=== PATIENT | female | born 1990 | race Caucasian/White ===

== ENCOUNTER 2020-01-19 16:19 | Emergency (ER) | payer OTHER, SELFPAY ==
[2020-01-19 17:22] VITALS: BP 109/68; PULSE 88; RESP 22; TEMP 36.7; O2SAT 97; BMI 47.2
[2020-01-19 18:54] VITALS: BP 131/59; PULSE 77; RESP 22; TEMP 36.5; O2SAT 97
--- NOTE | 2020-01-19 19:33 | PC.NURSE ---
Pt placed on monitor, labs and Iv placed. Reported off to [facility].
[2020-01-19 19:55] VITALS: PULSE 72
[2020-01-19 20:00] VITALS: BP 117/70; PULSE 71; RESP 20; TEMP 37.2; O2SAT 100
--- NOTE | 2020-01-19 20:27 | XR_ITS ---
EXAMINATION: XR CHEST CLINICAL INFORMATION: 29-year-old female patient with shortness of breath. COMPARISON: Last chest x-ray performed 10/12/2019. (No acute). TECHNIQUE: AP portable erect view of the chest was obtained. The time of examination was 8:55 PM. FINDINGS: The heart remains normal in size. Pulmonary vascularity is normal. The lungs are symmetrically aerated and clear showing no evidence of consolidation or edema. Moderate thoracolumbar scoliosis is present. An eventration of the right hemidiaphragm is present as well. IMPRESSION: No acute cardiopulmonary disease.
--- NOTE | 2020-01-19 20:27 | ECG_ITS ---
Test Reason : DYSPNEA Blood Pressure : / mmHG Vent. Rate : 072 BPM Atrial Rate : 072 BPM P-R Int : 200 ms QRS Dur : 098 ms QT Int : 422 ms P-R-T Axes : -19 -03 -03 degrees QTc Int : 462 ms Normal sinus rhythm Nonspecific T wave abnormality Abnormal ECG When compared with ECG of 12-OCT-2019 06:28, Inverted T waves have replaced nonspecific T wave abnormality in Inferior leads Referred By: Rocio Humphrey Electronically Signed By:SHANTI FRYE MD
--- NOTE | 2020-01-19 20:30 | ED_ITS ---
HPI - SOB/Dyspnea General Chief Complaint: Dyspnea Stated Complaint: sob Time Seen by Provider: 01/19/20 20:26 Source: patient Mode of arrival: ambulatory Limitations: no limitations History of Present Illness HPI Narrative: this is a 29-year-old female otherwise healthy, presented with 2 days of shortness of breath feeling anxious and tingling of both arms and feet, patient describes that she feels popping sensation inside her chest when she takes a deep breath. Patient declined any substance abuse except smoking marijuana. patient declined any recent travel, no recent prolonged immobilization, no lower extremities swelling or tenderness, no history of PE/DVT. Related Data Home Medications Medication Instructions Recorded Confirmed No Known Home Meds 01/19/20 01/19/20 Allergies Allergy/AdvReac Type Severity Reaction Status Date / Time aspirin [ASPIRIN] Allergy Intermediate SWELLING Verified 01/19/20 17:28 Review of Systems Review of Systems: all other systems are reviewed and are negative Constitutional: Reports as per HPI and Reports no additional constitutional complaints Eyes: Reports as per HPI and Reports no additional eye complaints Reports system reviewed and no additional complaints, except as documented Cardiovascular: Reports as per HPI and Reports no additional cardiovascular complaints Respiratory: Reports as per HPI and Reports no additional respiratory complaints Gastrointestinal: Reports as per HPI and Reports no additional gastrointestinal complaints Genitourinary: Reports no additional female genitourinary complaints Musculoskeletal: Reports no additional musculoskeletal complaints Skin/Breast: Reports system reviewed and no additional complaints, except as docu Psychiatric: Reports no additional psychiatric complaints Endocrine: Reports no additional endocrine complaints Hematologic/Lymphatic: Reports no additional hematologic/lymphatic complaints Allergic/Immunologic: Reports no additional allergic/immunologic complaints Reports system reviewed and no additional complaints, except as documented and Reports Abnormal speech present [facility] Past Medical History Medical History Bipolar 1 disorder Carpal tunnel syndrome Depression Scoliosis Social History Social History Alcohol intake: never Smoking Status: Never smoker Smoked in Last 30 Days: No Use of substances other than those prescribed or required for medical reasons: No Advance Directives: No Advance Directives Information Provided: Yes Physical Exam 2 Vital Signs: Vital Signs: Vital Signs Temp Pulse Resp BP Pulse Ox 01/19/20 21:29 98.4 F 77 16 129/65 99 01/19/20 20:00 98.9 F 71 20 117/70 100 01/19/20 18:54 97.7 F 77 22 H 131/59 L 97 01/19/20 17:22 98.0 F 88 22 H 109/68 97 Body Mass Index 47.2 vital signs have been reviewed as normal and appeared to be correct. Blood pressure normal. Heart rate normal. Respiration rate normal. Temperature no rmal. Oxygen saturation normal. Appearance: Alert. Oriented X3. No acute distress. Head: Normal external exam. Normocephalic. Atraumatic. No Boland signs noted. No raccoon eyes noted Eyes: PERRLA. EOMI. Conjunctiva and sclera normal. Eyelids normal. ENT: EAC normal. TM's Normal. Pharynx normal. Uvula midline. Moist mucous membranes. No trismus noted. No drooling noted. No muffled voice noted. Neck: Normal inspection. Neck supple. FROM. No adenopathy. Thyroid Normal. No meningeal signs. No neck mass noted. CVS: Normal heart rate and rhythm. Heart sound normal. No murmurs noted. Pulses normal throughout. Respiratory: No respiratory distress. Painless inspiration. Breath sounds normal. No wheezes/rales/rhonchi noted. Chest nontender. No accessory muscle usage noted or decreased air movement noted. Abdomen: Soft and nontender. Bowel sounds normal in all 4 quadrants. No distention noted. No organomegaly noted. No visible injury noted. Back: No CVA tenderness. Full range of motion noted. Skin: Skin warm and dry. Normal skin color. Normal skin turgor. No rashes/lesions/lacerations noted. Extremities: No lower extremity edema. Extremities exhibit normal range of motion. Extremities nontender. Neuro: Oriented X 3. No motor deficit. No sensory deficit. Reflexes normal. Course Course Course Narrative: 29-year-old female otherwise with past medical history significant for bipolar disorder and a psych disorders, presented with 2 days of shortness of breath and overall feeling anxious. Will monitor the patient, hydrate, try Ativan for anxiolytics medication, check labs, EKG, chest x-ray, re-evaluate. MDM - SOB/Dyspnea MDM Narrative Medical decision making narrative: 29-year-old female otherwise healthy presented with 2 days of feeling anxious, upper and lower extremities numbness, feels popping sensation in the chest while she is breathing. Patient has unremarkable labs/ unremarkable EKG . patient was given Ativan in the emergency department help her symptoms. Will discharge the patient to follow-up with PCP. Lab Data Result diagrams: 01/19/20 20:48 Labs: Lab Results 01/19/20 01/19/20 01/19/20 Range/Units 20:48 20:48 20:48 WBC 8.4 (4.8-10.8) X10*3/uL RBC 4.21 (4.20-5.50) X10*6/uL Hgb 12.1 (12.0-16.0) g/dl Hct 36.5 L (37-47) % MCV 86.7 (80-98) fL MCH 28.7 (27.0-33.0) pg MCHC 33.2 (31.0-35.0) g/dl RDW 13.9 (11.0-16.0) % Plt Count 231 (160-400) X10*3/uL MPV 10.9 (9.4-12.3) fL Absolute Nucleated RBC 0.000 (0.0-0.012) X10*3/uL Nucleated RBC % (auto) 0.0 (0.0-0.2) /100WBC D-Dimer 241 NG/ML Total Bilirubin (0.0-1.0) mg/dL Direct Bilirubin (0.0-0.5) mg/dL AST (5-31) U/L ALT (0-31) U/L Alkaline Phosphatase (39-117) U/L Troponin I High Sens (<3.5-17.0) ng/L B-Natriuretic Peptide < 10 (<100) pg/mL Total Protein (6.5-8.0) g/dL Albumin (3.5-5.0) g/dL Lipase (8-78) U/L Urine Color Urine Appearance Urine pH (5.0-8.0) Ur Specific [place] (1.005-1.025) Urine Protein (NEG-TRACE) MG/DL Urine Glucose (UA) (NEG) MG/DL Urine Ketones (NEG) MG/DL Urine Blood (NEG) Urine Nitrite (NEG) Ur Leukocyte Esterase (NEG) Urine RBC (0) /HPF Urine WBC (0-4) /HPF Ur Squamous Epith Cells /LPF Urine Bacteria /LPF Urine Test (NEGATIVE) 10/01/19/20 01/19/20 Range/Units 20:48 20:48 21:28 WBC (4.8-10.8) X10*3/uL RBC (4.20-5.50) X10*6/uL Hgb (12.0-16.0) g/dl Hct (37-47) % MCV (80-98) fL MCH (27.0-33.0) pg MCHC (31.0-35.0) g/dl RDW (11.0-16.0) % Plt Count (160-400) X10*3/uL MPV (9.4-12.3) fL Absolute Nucleated RBC (0.0-0.012) X10*3/uL Nucleated RBC % (auto) (0.0-0.2) /100WBC D-Dimer NG/ML Total Bilirubin 0.2 (0.0-1.0) mg/dL Direct Bilirubin < 0.2 (0.0-0.5) mg/dL AST 19 (5-31) U/L ALT 18 (0-31) U/L Alkaline Phosphatase 96 (39-117) U/L Troponin I High Sens < 3.5 (<3.5-17.0) ng/L B-Natriuretic Peptide (<100) pg/mL Total Protein 6.5 (6.5-8.0) g/dL Albumin 3.5 (3.5-5.0) g/dL Lipase 19 (8-78) U/L Urine Color YELLOW Urine Appearance CLEAR Urine pH 5.5 (5.0-8.0) Ur Specific [place] >= 1.030 H (1.005-1.025) Urine Protein 2+ H (NEG-TRACE) MG/DL Urine Glucose (UA) NEG (NEG) MG/DL Urine Ketones NEG (NEG) MG/DL Urine Blood NEG (NEG) Urine Nitrite NEG (NEG) Ur Leukocyte Esterase NEG (NEG) Urine RBC 0-2 (0) /HPF Urine WBC 0 (0-4) /HPF Ur Squamous Epith Cells 1+ /LPF Urine Bacteria TRACE /LPF Urine Test NEGATIVE (NEGATIVE) ECG Data Interpretation: Normal sinus rhythm at 72 beats per minutes, normal intervals, no ST-T changes. Discharge Plan Discharge Clinical Impression: Anxiety Dyspnea Qualifiers: Dyspnea type: unspecified Qualified Code(s): R06.00 - Dyspnea, unspecified Patient Disposition: Home, Self-Care Instructions: Anxiety (ED) Prescriptions: No Action No Known Home Meds RF: 0 Referrals: Physician,Unknown [Primary Care Provider] - 2 days
[2020-01-19] MEDS: 0.9 % Sodium Chloride 1,000 ML 999 ML IVCONT (20:37)
[2020-01-19] MEDS: LORazepam 2 MG/ML VIAL 1 MG IVPUSH (20:37)
[2020-01-19 21:06] LABS: Hematocrit 36.5 % (37-47); Hemoglobin 12.1 g/dl (12.0-16.0); Mean Corpuscular HGB Conc 33.2 g/dl (31.0-35.0); Mean Corpuscular Hemoglobin 28.7 pg (27.0-33.0); Mean Corpuscular Volume 86.7 fL (80-98); Mean Platelet Volume 10.9 fL (9.4-12.3); Platelet Count 231 X10*3/uL (160-400); Red Blood Count 4.21 X10*6/uL (4.20-5.50); Red Cell Distribution Width 13.9 % (11.0-16.0); White Blood Count 8.4 X10*3/uL (4.8-10.8)
[2020-01-19 21:16] LABS: D Dimer 241 NG/ML
[2020-01-19 21:29] VITALS: BP 129/65; PULSE 77; RESP 16; TEMP 36.9; O2SAT 99
[2020-01-19 21:44] LABS: Appearance Urine CLEAR; Color Urine YELLOW; Glucose Urine UA NEG (NEG); Leukocyte Esterase Urine NEG (NEG); Nitrite Urine NEG (NEG); PH 5.5 (5.0-8.0); Specific Gravity - Urine >= 1.030 (1.005-1.025); Urine Blood NEG (NEG); Urine Ketones NEG (NEG); Urine Protein 2+ MG/DL (NEG-TRACE)
[2020-01-19 21:45] LABS: UPreg QC Valid YES
[2020-01-19 21:46] LABS: Urine Pregnancy NEGATIVE (NEGATIVE)
[2020-01-19 21:46] LABS: Alanine Aminotransferase 18 U/L (0-31); Albumin Level 3.5 g/dL (3.5-5.0); Alkaline Phosphatase 96 U/L (39-117); Aspartate Amino Transferase 19 U/L (5-31); Bilirubin Direct < 0.2 mg/dL (0.0-0.5); Bilirubin Total 0.2 mg/dL (0.0-1.0); Lipase 19 U/L (8-78); Total Protein 6.5 g/dL (6.5-8.0)
[2020-01-19 21:50] LABS: B Type Natriuretic Peptide < 10 pg/mL (<100); Troponin-I High Sensitivity < 3.5 ng/L (<3.5-17.0)
[2020-01-19 21:51] LABS: Bacteria Urine TRACE /LPF; RBC Urine 0-2 /HPF (0); Squamous Epithelial Cell Urine 1+ /LPF; WBC Urine 0 /HPF (0-4)
== END 2020-01-19 22:37 | disposition home or self-care (01) ==
PROVIDERS: Emergency Provider Emergency Medicine
DX: R06.00 Dyspnea, unspecified (principal); F41.9 Anxiety disorder, unspecified
CPT/HCPCS: 36415; 71045; 80076; 81001; 81025; 83690; 83880; 84484; 85027; 85379; 93005; 96361; 96374; 99284; 99285; J2060

== ENCOUNTER 2020-04-14 07:13 | Emergency (ER) | payer OTHER, SELFPAY ==
[2020-04-14 08:08] VITALS: BP 127/73; PULSE 79; RESP 16; TEMP 36.9; O2SAT 97; BMI 45.3
--- NOTE | 2020-04-14 08:22 | ED.BACK ---
HPI - Back Pain/Injury General Chief Complaint: Back Pain/Injury Stated Complaint: flank pain Time Seen by Provider: 04/14/20 08:17 Source: patient Mode of arrival: ambulatory Limitations: no limitations History of Present Illness HPI Narrative: States right lower back pain ongoing for the past couple days unsure of injury but does do long shifts standing up for 8 hours a day and has had positional pain for the past 2 days. There is no associated GI symptoms. There is no associated nausea vomiting or diarrhea. There is no head or neck pain. No radiation of this pain. No lower extremity weakness or radiculopathy. Had similar episode 2 years ago. MD elicited complaint: back pain Pertinent past history: prior back pain Onset (ago): day(s) (2 days ) Timing: constant Severity: moderate Similar Symptoms Previously: Yes Quality: aching Location: left lower back Radiation: none Exacerbating factors: movement Relieving factors: immobilization Associated symptoms: denies other symptoms Work related injury: No Related Data Previous Rx's Medication Instructions Recorded cyclobenzaprine 5 mg PO TID PRN #14 tab 04/14/20 ibuprofen 800 mg PO Q8H PRN #30 tab 04/14/20 lidocaine 1 patch TOPICAL Q24H PRN 10 Days 04/14/20 #10 ea Allergies Allergy/AdvReac Type Severity Reaction Status Date / Time aspirin [ASPIRIN] Allergy Intermediate SWELLING Verified 01/19/20 17:28 Review of Systems Review of Systems: Constitutional: No Weight loss, No Fever, No Chills, No Night Sweats, No Fatigue, No Malaise ENT/Mouth: No Hearing loss, No Ear Pain, No Nasal Congestion, No Sinus Pain, No Hoarseness, No sore throat, No Rhinorrhea, No Swallowing Difficulty Eyes: No Eye Pain, No Swelling, No Redness, No Foreign Body, No Discharge, No Vision Changes Cardiovascular: No Chest Pain, No SOB, No Dyspnea on Exertion, No Orthopnea, No Edema, No Palpitations Respiratory: No Cough, No Sputum, No Wheezing, No Smoke Exposure, No Dyspnea Gastrointestinal: No Nausea, No Vomiting, No Diarrhea, No Constipation, No abdominal Pain, No Hematochezia, No Melena Genitourinary: no irregular bleeding, No Dysuria, No Urinary Frequency, No Hematuria, No Urinary Incontinence, No Urgency, No Flank Pain, No Urinary Flow Changes, No Hesitancy Musculoskeletal: No joint pain, No Myalgias, No Joint Swelling, as noted in HPI Skin: No Skin Lesions, No rash Neuro: No Weakness, No Numbness, No Paresthesias, No Loss of Consciousness, No Dizziness, No Headache Psych: No Social Issues Heme/Lymph: No Bruising, No Bleeding,No Lymphadenopathy Endocrine: No Polyuria, No Polydipsia, No Temperature Intolerance Yes all other systems are reviewed and are negative [facility] Past Medical History Medical History Bipolar 1 disorder Carpal tunnel syndrome Depression Scoliosis Social History Social History Alcohol intake: never Smoking Status: Never smoker Advance Directives: No Advance Directives Information Provided: Yes Physical Exam Vital Signs: Vital Signs: Last Vital Signs Temp 98.5 F 04/14/20 08:08 Pulse 79 04/14/20 08:08 Resp 16 04/14/20 08:08 BP 127/73 04/14/20 08:08 Pulse Ox 97 04/14/20 08:08 Body Mass Index 45.3 Reviewed Const: General: cooperative and healthy appearing; No acute distress or intoxicated appearing Nutritional Appearance: average body habitus Orientation/consciousness: patient oriented x3 HENMT: Head: Yes normal to inspection Ears: hearing grossly normal bilaterally Eyes: General: appearance normal, both eyes and all related structures Visual Alvarado: normal visual alvarado by confrontation Neck: Neck: Yes normal visual inspection, No positive Brudzinski's sign, No positive Kernig's sign and No tender Thyroid: Thyroid normal Chest: Chest palpation & inspection: normal inspection of the chest Resp: Effort & Inspection: normal respiratory effort Cardio: Jugular venous distension: no JVD Rhythm: regular rhythm Heart sounds: S1 normal heart sound present and S2 normal heart sound present GI: Inspection: Yes normal to inspection Percussion: Yes normal to percussion Auscultation: normal bowel sounds : General: Yes no CVA tenderness Back/Spine/Pelvis: Other: No pain while sitting up straight states pain with palpation to the paraspinal muscle bilaterally left greater than right. No midline to palpation. No step-off. Negative leg lift. No rash. Distally neurovascularly intact. Reflexes within normal limits. Back: no CVA tenderness Thoracic/Lumbar Spine: straight leg raise negative bilaterally and paraspinal muscle tenderness on the right Skin: General skin exam: no rashes or lesions noted Neuro: General: patient oriented x3 Extrem: General: Yes normal to inspection MDM - Back Pain/Injury MDM Narrative Medical decision making narrative: In view 30-year-old female presenting with findings consistent with lumbar paraspinal muscle strain with no real back pain red flags. No signs symptoms of saddle anesthesia. Did receive IM Toradol and lidocaine patch feels better. Ambulatory status with gait. Does work long hours and stand for 8 hours unsure if this is related to this she does wear poor footwear with no back support could be a contributing factor. Will educate improper footwear work note provided. Will follow up with primary care/employee Center as needed. Stable for discharge. Differential Diagnosis Differential diagnosis: Likely sciatica and strain of lumbar region; Unlikely lumbar radiculopathy, renal colic, pyelonephritis, thoracic back pain, AAA and discitis Medical Records Attestation: I reviewed the patient's medical records. Lab Data Attestation: I reviewed the patient's lab results. Discharge Plan Discharge Clinical Impression: Strain of lumbar region Qualifiers: Encounter type: initial encounter Qualified Code(s): S39.012A - Strain of muscle, fascia and tendon of lower back, initial encounter Patient Disposition: Home, Self-Care Instructions: Low Back Strain (ED), Lower Back Exercises (ED) Additional Instructions: Warm compresses Gentle stretching Take medication prescribed No drinking alcohol or driving or operating heavy machinery while taking the muscle relaxants Low back exercises reviewed No lifting or bending or stooping for the next couple of days Return if any concerns or worsening symptoms Otherwise schedule follow-up with her primary care doctor 1-2 weeks for follow-up Thank you Prescriptions: New lidocaine 4 % adhesive patch,medicated 1 patch topical Q24H PRN (Reason: pain) 10 Days Qty: 10 RF: 0 ibuprofen 800 mg tablet 800 mg PO Q8H PRN (Reason: pain) Qty: 30 RF: 0 cyclobenzaprine 5 mg tablet 5 mg PO TID PRN (Reason: muscle spasm) Qty: 14 RF: 0 Referrals: ED Physician,Generic [Emergency Provider] - 1 week Stand Alone Forms: Work/School Release
[2020-04-14] MEDS: Ketorolac Tromethamine 60 MG/2 ML VIAL IM (08:45)
[2020-04-14] MEDS: Lidocaine 4 % Patch ADH..PATCH 1 PATCH TRANSDERMA (08:45)
== END 2020-04-14 10:35 | disposition home or self-care (01) ==
PROVIDERS: Emergency Provider Emergency Medicine
DX: S39.012A Strain of muscle, fascia and tendon of lower back, initial encounter (principal); X50.1XXA Overexertion from prolonged static or awkward postures, initial encounter; Y93.89 Activity, other specified; Y92.9 Unspecified place or not applicable; Y99.9 Unspecified external cause status
CPT/HCPCS: 96372; 99283; 99284; J1885

== ENCOUNTER 2020-04-27 16:09 | Emergency (ER) | payer OTHER, SELFPAY ==
[2020-04-27 16:29] VITALS: BP 125/58; PULSE 81; RESP 18; TEMP 37.6; O2SAT 98; BMI 44.4
== END 2020-04-27 19:34 | disposition left against medical advice (07) ==
PROVIDERS: Emergency Provider Emergency Medicine
DX: K62.5 Hemorrhage of anus and rectum (principal)
CPT/HCPCS: 99282

== ENCOUNTER 2020-06-05 17:51 | Emergency (ER) | payer OTHER, SELFPAY ==
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
[2020-06-05 17:57] VITALS: BP 119/61; PULSE 79; RESP 16; TEMP 36.5; O2SAT 99; BMI 47.2
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
[2020-06-05] MEDS: traMADoL HCL 50 MG TABLET PO (21:02)
[2020-06-05] MEDS: Cyclobenzaprine HCl 10 MG TABLET PO (21:02)
== END 2020-06-05 21:15 | disposition home or self-care (01) ==
PROVIDERS: Emergency Provider Internal Medicine
DX: S93.402A Sprain of unspecified ligament of left ankle, initial encounter (principal); S63.92XA Sprain of unspecified part of left wrist and hand, initial encounter; V43.52XA Car driver injured in collision with other type car in traffic accident, initial encounter; Y93.89 Activity, other specified; Y92.414 Local residential or business street as the place of occurrence of the external cause; Y99.9 Unspecified external cause status
CPT/HCPCS: 73610; 99283; 99284

== ENCOUNTER 2021-07-23 16:16 | Emergency (ER) | payer OTHER, SELFPAY ==
--- NOTE | ~2021-07-23 | XR_ITS ---
EXAMINATION: XR HAND, RIGHT CLINICAL INFORMATION: Pain and injury COMPARISON: None TECHNIQUE: PA, lateral, and oblique views of the right hand. FINDINGS: The bones and soft tissues are normal. No fracture. Alignment is anatomic. Joint spaces are maintained. No erosions or soft tissue calcifications. XR/XR hand RT 2V IMPRESSION: Normal right hand.
[2021-07-23 16:23] VITALS: BP 119/85; PULSE 88; RESP 18; TEMP 36.5; O2SAT 97; BMI 45.3
[2021-07-23] MEDS: Ibuprofen 600 MG TABLET PO (17:17)
[2021-07-23] MEDS: Acetaminophen 325 MG TABLET 975 MG PO (17:17)
--- NOTE | 2021-07-23 17:29 | ED_ITS ---
HPI - Extremity Problem General Chief complaint: Extremity Injury, Upper Stated complaint: R Hand Injury Time Seen by Provider: 07/23/21 16:28 Source: patient Mode of arrival: ambulatory Limitations: no limitations History of Present Illness HPI Narrative: Patient presents to the emergency department for evaluation of right hand/wrist pain. She has reports that today she accidentally banged her lateral hand agai nst a doorjamb. Developed pain with mild swelling instantly. She is concerned that she may have broken something. She reports a remote history possibly breaking this hand in the past, although she did not seek evaluation for this. She reports some tingling sensation to the right pinky finger. Is able to move the digits and the wrist. Related Data Previous Rx's Medication Instructions Recorded cyclobenzaprine 5 mg tablet 5 mg PO TID PRN #14 tab 04/14/20 ibuprofen 800 mg tablet 800 mg PO Q8H PRN #30 tab 04/14/20 lidocaine 4 % topical patch 1 patch TOPICAL Q24H PRN 10 Days 04/14/20 #10 ea ibuprofen 600 mg tablet 600 mg PO Q6H PRN #20 tab 06/05/20 Allergies Allergy/AdvReac Type Severity Reaction Status Date / Time aspirin [ASPIRIN] Allergy Intermediate SWELLING Verified 07/23/21 16:23 Review of Systems Review of Systems: Musculoskeletal: Positive left hand pain. Positive tingling. Yes all other systems are reviewed and are negative PMFSH Past Medical History Attestation statement: The following information was validated with the patient. Source: old records reviewed Medical History Bipolar 1 disorder Carpal tunnel syndrome Depression Scoliosis Social History Social History Alcohol intake: never Advance Directives: No Advance Directives Information Provided: No Patient : No Physical Exam Vital Signs: Vital Signs: Last Vital Signs Temp 97.7 F 07/23/21 16:23 Pulse 88 07/23/21 16:23 Resp 18 07/23/21 16:23 BP 119/85 07/23/21 16:23 Pulse Ox 97 07/23/21 16:23 BMI result Body Mass Index 45.3 Vital signs have been reviewed as normal and appeared to be correct. Blood pressure normal.? Heart rate normal.? Respiration rate normal. Temperature normal.? Oxygen saturation normal. Appearance: Alert.?Oriented to person, place and time. No acute distress.?Normal affect. Eyes: Pupils equal, round and reactive to light.? ENT: Pharynx normal.?? Neck: Normal inspection.? Neck supple.?? CVS: Heart sounds normal. Normal heart rate and rhythm.? Pulses normal.?? Respiratory: No respiratory distress.? Lung sounds clear to auscultation bilaterally?? Abdomen: Soft and non-tender. Skin: Skin warm and dry.? Normal skin color.? Extremities: Right your hand along the lower aspect with mild erythema, tenderness to palpation, no obvious deformity. 2+ radial and ulnar pulses bilaterally. Neurovascularly intact distally Neuro: Moves all extremities spontaneously. Sensation intact bilaterally.No focal neuro deficits. Ambulates with normal steady gait. Course Course Course Narrative: Patient is a 31-year-old female being evaluated for acute onset of right hand pain after injury. Medicated with Tylenol and ibuprofen. Patient reports an allergy to aspirin causing swelling, has taken ibuprofen in the past many times without complication. X-ray obtained reveals no acute fracture normal alignment. Symptoms consistent with a sprain, advised rest, ice, compression, Tylenol and ibuprofen as needed for pain. Discussed reasons to return back to the emergency department she, advised outpatient follow-up with her primary care provider as needed. All questions were answered patient was discharged home stable condition. MDM - Extremity (Nontraumatic) Medical Records Attestation: I reviewed the patient's medical records. Imaging Data XR right hand: Radiologist's impression: FINDINGS: The bones and soft tissues are normal. No fracture. Alignment is anatomic. Joint spaces are maintained. No erosions or soft tissue calcifications.? XR/XR hand RT 2V IMPRESSION: Normal right hand. Discharge Plan Discharge Clinical Impression: Sprain and strain of right hand Patient Disposition: Home, Self-Care Instructions: Sprain (ED), How to Use an Elastic Bandage (ED), R.I.C.E. Treatment (ED) Additional Instructions: You can take ibuprofen 200 mg, 3 tablets (600mg) every 6-8 hours as needed for pain, in addition to Tylenol 500 mg, 2 tablets (1,000mg) every 4-6 hours as needed for pain, but not to exceed 3 doses daily (3,000mg).? Return to the emergency department with any new or worsening symptoms or concerns. Prescriptions: No Action ibuprofen 600 mg tablet 600 mg PO Q6H PRN (Reason: pain) Qty: 20 0RF lidocaine 4 % adhesive patch,medicated 1 patch topical Q24H PRN (Reason: pain) 10 Days Qty: 10 0RF Rx Instructions: may leave on for up to 12 hrs ibuprofen 800 mg tablet 800 mg PO Q8H PRN (Reason: pain) Qty: 30 0RF cyclobenzaprine 5 mg tablet 5 mg PO TID PRN (Reason: muscle spasm) Qty: 14 0RF
== END 2021-07-23 18:38 | disposition home or self-care (01) ==
PROVIDERS: Emergency Provider Emergency Medicine; PCP Nurse Practitioner Acute Care
DX: S63.91XA Sprain of unspecified part of right wrist and hand, initial encounter (principal); M79.641 Pain in right hand; Y29.XXXA Contact with blunt object, undetermined intent, initial encounter; Y93.9 Activity, unspecified; Y92.9 Unspecified place or not applicable; Y99.9 Unspecified external cause status; Z79.899 Other long term (current) drug therapy
CPT/HCPCS: 73120; 99283

== ENCOUNTER 2021-09-24 22:49 | Emergency (ER) | payer MEDICAID, SELFPAY ==
--- NOTE | ~2021-09-24 | XR_ITS ---
EXAMINATION: XR SHOULDER, RIGHT CLINICAL INFORMATION: Pain. Unable to raise arm. COMPARISON: None TECHNIQUE: Three views of the right shoulder. FINDINGS: No fracture or dislocation. The glenohumeral joint is well aligned. Joint spaces are maintained. The visualized lung is clear. The visualized ribs are intact. XR/XR shoulder RT min 2V IMPRESSION: Normal right shoulder.
--- NOTE | ~2021-09-24 | XR_ITS ---
EXAMINATION: XR CERVICAL SPINE CLINICAL INFORMATION: Radicular pain down the right arm. COMPARISON: None TECHNIQUE: 4 views of the cervical spine were obtained. FINDINGS: No acute fracture or subluxation. Vertebral body height and alignment maintained. Mild disc space narrowing at C4-C5. The posterior elements are well aligned. The dens is intact. The lateral axial joint is well aligned. The prevertebral soft tissues are unremarkable. The lung apices are clear. XR/XR cervical spine 3V IMPRESSION: Mild disc space narrowing of C4-C5.
[2021-09-25 00:10] VITALS: BP 141/86; PULSE 81; RESP 15; TEMP 36.2; O2SAT 99; BMI 45.3
--- NOTE | 2021-09-25 02:49 | ED.EXTPRO ---
HPI - Extremity Problem General Chief complaint: Extremity Injury, Upper Stated complaint: arm pain, fall abt 1 week ago Time Seen by Provider: 09/25/21 02:49 Source: patient Mode of arrival: ambulatory Limitations: no limitations History of Present Illness HPI Narrative: patient fell one week ago and injured her shoulder, now with increased radicular pain Complaint: extremity pain Onset (ago): day(s) Pain Consistency: constant Location: right and upper extremity Quality: burning Radiation: distal Relieving factors: nothing Associated symptoms: denies other symptoms Related Data Previous Rx's Medication Instructions Recorded cyclobenzaprine 5 mg tablet 5 mg PO TID PRN muscle spasm #14 04/14/20 tabs ibuprofen 800 mg tablet 800 mg PO Q8H PRN pain #30 tabs 04/14/20 lidocaine 4 % topical patch 1 patch topical Q24H PRN pain 10 04/14/20 days #10 ea ibuprofen 600 mg tablet 600 mg PO Q6H PRN pain #20 tabs 06/05/20 cyclobenzaprine 10 mg tablet 10 mg PO TID #10 tabs 09/25/21 naproxen 500 mg tablet (Naprosyn) 500 mg PO BID #20 tabs 09/25/21 Allergies Allergy/AdvReac Type Severity Reaction Status Date / Time aspirin [ASPIRIN] Allergy Intermediate SWELLING Verified 07/23/21 16:23 Review of Systems Constitutional: Constitutional: Reports no additional constitutional complaints Eyes: Eyes: Reports no additional eye complaints ENT: Denies dizziness Cardiovascular: Cardiovascular: Reports no additional cardiovascular complaints Respiratory: Respiratory: Reports as per HPI Gastrointestinal: Gastrointestinal: Reports no additional gastrointestinal complaints Genitourinary: Genitourinary: Reports no additional female genitourinary complaints Musculoskeletal: Musculoskeletal: Reports no additional musculoskeletal complaints Integumentary/Breasts: Skin/Breast: Denies rash Neurologic: Reports system reviewed and no additional complaints, except as documented, Denies dizziness and Denies Sensory deficit (Neuro) Psychiatric: Psychiatric: Denies anxiety PMFSH Past Medical History Medical History Bipolar 1 disorder Carpal tunnel syndrome Depression Scoliosis Social History Social History Alcohol intake: never Advance Directives: No Physical Exam Vital Signs: Vital Signs: Last Vital Signs Temp 97.1 F 09/25/21 00:10 Pulse 81 09/25/21 00:10 Resp 15 09/25/21 00:10 BP 141/86 H 09/25/21 00:10 Pulse Ox 99 09/25/21 00:10 O2 Del Method 09/25/21 00:10 BMI result Body Mass Index 45.3 Const: Other: anxious jumping around, pain out of proportion to physical findings Nutritional Appearance: obese Orientation/consciousness: oriented to person and patient oriented x3 Limitations: no limitations HEENT: Head: Yes normal to inspection Ears: external ears normal General nose exam: Normal external nose present Mouth: Normal oral and palatal mucosa present and oropharynx normal Throat: Yes posterior oropharynx normal Eyes: General: appearance normal, both eyes and all related structures Neck: Other: right trapezius pain with pain worse with looking to the left Chest: Chest palpation & inspection: normal inspection of the chest Resp: Auscultation: clear to auscultation bilaterally Cardio: Jugular venous distension: no JVD Rate: regular rate Rhythm: regular rhythm Heart sounds: S1 normal heart sound present and S2 normal heart sound present GI: Inspection: Yes normal to inspection Palpation (GI): Soft to palpation, nontender and No hepatosplenomegaly present Auscultation: normal bowel sounds : General: Yes no CVA tenderness Back/Spine/Pelvis: Back: no CVA tenderness Skin: General skin exam: no rashes or lesions noted Neuro: General: oriented to person and patient oriented x3 Cranial nerves: Yes CN's II-XII intact bilaterally Motor exam (neuro): 5/5 motor strength present throughout Sensory Exam: No Sensory deficit (Neuro) Extrem: General: Yes normal to inspection Psych: Appearance: grossly normal Course Reevaluation(s) Reevaluation #1: patient with degenerative disease of the neck with likely radicular pain down arm.. Will start NSAIDs and flexeril and have patient follow up with PMD Time: 04:08 MDM - Extremity (Nontraumatic) Imaging Data shoulder: Radiologist's impression: FINDINGS: No fracture or dislocation. The glenohumeral joint is well aligned. Joint spaces are maintained. The visualized lung is clear. The visualized ribs are intact.? XR/XR shoulder RT min 2V IMPRESSION: Normal right shoulder. cervical : Radiologist's impression: FINDINGS: No acute fracture or subluxation. Vertebral body height and alignment maintained. Mild disc space narrowing at C4-C5. The posterior elements are well aligned. The dens is intact. The lateral axial joint is well aligned. The prevertebral soft tissues are unremarkable. The lung apices are clear. XR/XR cervical spine 3V IMPRESSION: Mild disc space narrowing of C4-C5. ? Discharge Plan Discharge Clinical Impression: Cervical radiculopathy due to degenerative joint disease of spine Patient Disposition: Home, Self-Care Instructions: Cervical Radiculopathy (ED), Neck Pain (ED) Prescriptions: New cyclobenzaprine 10 mg tablet 10 mg PO TID Qty: 10 0RF naproxen [Naprosyn] 500 mg tablet 500 mg PO BID Qty: 20 0RF No Action ibuprofen 600 mg tablet 600 mg PO Q6H PRN (Reason: pain) Qty: 20 0RF lidocaine 4 % adhesive patch,medicated 1 patch topical Q24H PRN (Reason: pain) 10 Days Qty: 10 0RF Rx Instructions: may leave on for up to 12 hrs ibuprofen 800 mg tablet 800 mg PO Q8H PRN (Reason: pain) Qty: 30 0RF cyclobenzaprine 5 mg tablet 5 mg PO TID PRN (Reason: muscle spasm) Qty: 14 0RF Referrals: Physician,Unknown J [Primary Care Provider] - 1 week
[2021-09-25] MEDS: Ketorolac Tromethamine 60 MG/2 ML VIAL IM (03:14)
[2021-09-25] MEDS: Cyclobenzaprine HCl 10 MG TABLET PO (03:14)
== END 2021-09-25 04:18 | disposition home or self-care (01) ==
PROVIDERS: Emergency Provider Emergency Medicine
DX: M47.22 Other spondylosis with radiculopathy, cervical region (principal); M25.511 Pain in right shoulder
CPT/HCPCS: 72040; 73030; 96372; 99284; J1885

== ENCOUNTER 2021-11-02 18:30 | Emergency (ER) | payer MEDICAID, SELFPAY ==
--- NOTE | 2021-11-02 | ECG_ITS ---
Test Reason : DIZZINESS Blood Pressure : / mmHG Vent. Rate : 084 BPM Atrial Rate : 084 BPM P-R Int : 166 ms QRS Dur : 096 ms QT Int : 366 ms P-R-T Axes : -07 -11 -06 degrees QTc Int : 432 ms Normal sinus rhythm Minimal voltage criteria for LVH, may be normal variant ( R in aVL ) Borderline ECG When compared with ECG of 19-JAN-2020 21:04, No significant change was found Referred By: Generic ED Physician Electronically Signed By:SCARLET ROCA MD
[2021-11-02 19:06] VITALS: BP 107/62; PULSE 91; RESP 20; TEMP 37; O2SAT 98; BMI 47.3
[2021-11-02 19:24] LABS: MANUAL DIFF FLAG NO
[2021-11-02 19:28] LABS: Basophils Percent Auto 0.3 % (0-2); Eosinophils Absolute Auto 0.1 X10*3/uL (0.0-0.4); Eosinophils Percent Auto 1.5 % (0-4); Hematocrit 37.1 % (37.0-47.0); Hemoglobin 12.3 g/dl (12.0-16.0); Imm Gran Abs Auto 0.05 X10*3/uL (0.00-0.03); Imm Gran Pct Auto 0.5 % (0.0-0.4); Lymphocytes Absolute Auto 2.7 X10*3/uL (1.2-4.9); Lymphocytes Percent Auto 28.8 % (20-40); Mean Corpuscular HGB Conc 33.2 g/dl (31.0-35.0); Mean Corpuscular Hemoglobin 28.7 pg (27.0-33.0); Mean Corpuscular Volume 86.7 fL (80.0-98.0); Mean Platelet Volume 10.9 fL (9.4-12.3); Monocytes Absolute Auto 0.5 X10*3/uL (0.1-1.2); Monocytes Percent Auto 4.9 % (2-11); Neutrophils Absolute Auto 5.9 x10*3/uL (2.0-8.3); Platelet Count 236 X10*3/uL (160-400); Red Blood Count 4.28 X10*6/uL (4.20-5.50); Red Cell Distribution Width 14.4 % (11.0-16.0); White Blood Count 9.2 X10*3/uL (4.8-10.8)
[2021-11-02 19:40] LABS: Anion Gap 17 (12-20); Blood Urea Nitrogen 13 mg/dL (9-16); Calcium 9.1 mg/dL (8.4-10.2); Carbon Dioxide 21 mmol/L (22-29); Chloride 104 mmol/L (96-108); Creatinine Clr Calc Pharmacy 97.4; Estimated Glomerular Filt Rate > 60; Glucose Random 127 mg/dL (60-115); Sodium 138 mmol/L (135-145)
== END 2021-11-02 20:05 | disposition left against medical advice (07) ==
PROVIDERS: Emergency Provider Emergency Medicine
DX: R42 Dizziness and giddiness (principal); R20.0 Anesthesia of skin; R11.2 Nausea with vomiting, unspecified; Z79.899 Other long term (current) drug therapy
CPT/HCPCS: 36415; 80048; 85025; 93005; 99283

== ENCOUNTER 2021-11-05 09:11 | Emergency (ER) | payer MEDICAID, SELFPAY ==
--- NOTE | 2021-11-05 | ECG_ITS ---
Test Reason : tongue numbness,cp resolved Blood Pressure : / mmHG Vent. Rate : 077 BPM Atrial Rate : 077 BPM P-R Int : 166 ms QRS Dur : 096 ms QT Int : 382 ms P-R-T Axes : 000 -13 009 degrees QTc Int : 432 ms Normal sinus rhythm Minimal voltage criteria for LVH, may be normal variant ( R in aVL ) Borderline ECG When compared with ECG of 02-NOV-2021 19:15, No significant change was found Referred By: Generic ED Physician Electronically Signed By:SHANNON SOLANO
--- NOTE | ~2021-11-05 | XR_ITS ---
EXAMINATION: XR CHEST CLINICAL INFORMATION: Tongue numbness, chest pain this morning COMPARISON: None TECHNIQUE: Frontal view of the chest was obtained. FINDINGS: The lungs are well-expanded and clear. The heart size and pulmonary vascularity is normal. There is moderate dextroscoliosis mid to lower dorsal spine. No lytic process seen. XR/XR chest 1V IMPRESSION: Moderate dextroscoliosis mid to lower dorsal spine.
[2021-11-05 09:56] VITALS: BP 121/69; PULSE 80; RESP 18; TEMP 36.5; O2SAT 95; BMI 46.3
[2021-11-05 10:41] LABS: MANUAL DIFF FLAG NO
[2021-11-05 10:43] LABS: Basophils Absolute Auto 0.1 X10*3/uL (0.0-0.2); Basophils Percent Auto 0.4 % (0-2); Eosinophils Absolute Auto 0.1 X10*3/uL (0.0-0.4); Eosinophils Percent Auto 1.2 % (0-4); Hematocrit 41.8 % (37.0-47.0); Hemoglobin 13.8 g/dl (12.0-16.0); Imm Gran Abs Auto 0.04 X10*3/uL (0.00-0.03); Imm Gran Pct Auto 0.3 % (0.0-0.4); Lymphocytes Absolute Auto 2.1 X10*3/uL (1.2-4.9); Lymphocytes Percent Auto 18.1 % (20-40); Mean Corpuscular Hemoglobin 28.6 pg (27.0-33.0); Mean Corpuscular Volume 86.5 fL (80.0-98.0); Mean Platelet Volume 10.9 fL (9.4-12.3); Monocytes Absolute Auto 0.7 X10*3/uL (0.1-1.2); Monocytes Percent Auto 5.7 % (2-11); Neutrophils Absolute Auto 8.5 x10*3/uL (2.0-8.3); Neutrophils Percent Auto 74.3 % (45-73); Platelet Count 298 X10*3/uL (160-400); Red Blood Count 4.83 X10*6/uL (4.20-5.50); Red Cell Distribution Width 14.5 % (11.0-16.0); White Blood Count 11.5 X10*3/uL (4.8-10.8)
[2021-11-05 10:59] LABS: Anion Gap 16 (12-20); Blood Urea Nitrogen 11 mg/dL (9-16); Calcium 9.3 mg/dL (8.4-10.2); Carbon Dioxide 23 mmol/L (22-29); Chloride 104 mmol/L (96-108); Creatinine Clr Calc Pharmacy 97.1; Estimated Glomerular Filt Rate > 60; Glucose Random 120 mg/dL (60-115); Potassium 3.9 mmol/L (3.3-5.1); Sodium 139 mmol/L (135-145)
[2021-11-05 11:06] LABS: HCG Quantitative < 2 mIU/mL
--- NOTE | 2021-11-05 19:27 | ED.GENADULT ---
HPI - General Adult General Chief complaint: General Medical Stated complaint: Numb tongue Time Seen by Provider: 11/05/21 19:27 Source: patient Mode of arrival: ambulatory Limitations: no limitations History of Present Illness HPI narrative: Patient was seen on Friday because she was started on a new medication and her tongue was numb. patient was told to take a new medication. She is on a medication for thyroid, anxiety, lipids and depression. No rash, no tongue swelling, only tongue numbness. Onset (ago): day(s) Location: mouth Severity: mild Relieving factors: none Related Data Previous Rx's Medication Instructions Recorded cyclobenzaprine 5 mg tablet 5 mg PO TID PRN muscle spasm #14 04/14/20 tabs ibuprofen 800 mg tablet 800 mg PO Q8H PRN pain #30 tabs 04/14/20 lidocaine 4 % topical patch 1 patch topical Q24H PRN pain 10 04/14/20 days #10 ea ibuprofen 600 mg tablet 600 mg PO Q6H PRN pain #20 tabs 06/05/20 cyclobenzaprine 10 mg tablet 10 mg PO TID #10 tabs 09/25/21 naproxen 500 mg tablet (Naprosyn) 500 mg PO BID #20 tabs 09/25/21 Allergies Allergy/AdvReac Type Severity Reaction Status Date / Time aspirin [ASPIRIN] Allergy Intermediate SWELLING Verified 11/05/21 10:00 Review of Systems Constitutional: Constitutional: Reports no additional constitutional complaints Eyes: Eyes: Reports no additional eye complaints ENT: Denies dizziness Cardiovascular: Cardiovascular: Reports no additional cardiovascular complaints Respiratory: Respiratory: Reports as per HPI Gastrointestinal: Gastrointestinal: Reports no additional gastrointestinal complaints Genitourinary: Genitourinary: Reports no additional female genitourinary complaints Musculoskeletal: Musculoskeletal: Reports no additional musculoskeletal complaints Integumentary/Breasts: Skin/Breast: Denies rash Neurologic: Reports system reviewed and no additional complaints, except as documented, Denies dizziness and Denies Sensory deficit (Neuro) Psychiatric: Psychiatric: Denies anxiety PMFSH Past Medical History Medical History Bipolar 1 disorder Carpal tunnel syndrome Depression Scoliosis Social History Social History Alcohol intake: never Advance Directives: No Advance Directives Information Provided: No Physical Exam ED Vital Signs: Vital Signs - 24 hr 11/05/21 09:56 Temperature 97.7 F Pulse Rate 80 Respiratory Rate 18 Blood Pressure 121/69 Pulse Oximetry 95 Oxygen Delivery Method Room Air BMI result Body Mass Index 46.3 Const Other: Slightly angry and upset, concerned about her heart and her tongue General: healthy appearing Nutritional Appearance: average body habitus Orientation/consciousness: oriented to person and patient oriented x3 Limitations: no limitations HENMT Head: Yes normal to inspection Ears: external ears normal General nose exam: Normal external nose present Mouth: Normal oral and palatal mucosa present and oropharynx normal Throat: Yes posterior oropharynx normal Eyes General: appearance normal, both eyes and all related structures Neck Neck: Yes normal visual inspection Chest Chest palpation & inspection: normal inspection of the chest Resp Auscultation: clear to auscultation bilaterally Cardio Jugular venous distension: no JVD Rate: regular rate Rhythm: regular rhythm Heart sounds: S1 normal heart sound present and S2 normal heart sound present GI Inspection: Yes normal to inspection Palpation (GI): Soft to palpation, nontender and No hepatosplenomegaly present Auscultation: normal bowel sounds General: Yes no CVA tenderness Back/Spine/Pelvis Back: no CVA tenderness Skin General skin exam: no rashes or lesions noted Neuro General: oriented to person and patient oriented x3 Cranial nerves: Yes CN's II-XII intact bilaterally Motor exam (neuro): 5/5 motor strength present throughout Sensory Exam: No Sensory deficit (Neuro) Extrem General: Yes normal to inspection Psych Appearance: grossly normal Course Reevaluation(s) Reevaluation #1: patient with full movement of her tonuge, no swelling, EKG is normal. She is angry and distressed over waiting for 2 days to be seen in the ED Time: 19:39 Medical Decision Making Lab Data Result diagrams: 11/05/21 10:38 11/05/21 10:38 Labs: Lab Results 11/05/21 11/05/21 Range/Units 10:38 10:38 WBC 11.5 H (4.8-10.8) X10*3/uL RBC 4.83 (4.20-5.50) X10*6/uL Hgb 13.8 (12.0-16.0) g/dl Hct 41.8 (37.0-47.0) % MCV 86.5 (80.0-98.0) fL MCH 28.6 (27.0-33.0) pg MCHC 33.0 (31.0-35.0) g/dl RDW 14.5 (11.0-16.0) % Plt Count 298 D (160-400) X10*3/uL MPV 10.9 (9.4-12.3) fL Immature Gran % (Auto) 0.3 (0.0-0.4) % Neut % (Auto) 74.3 H (45-73) % Lymph % (Auto) 18.1 L (20-40) % [place] % (Auto) 5.7 (2-11) % Eos % (Auto) 1.2 (0-4) % Baso % (Auto) 0.4 (0-2) % Lymph # (Auto) 2.1 (1.2-4.9) X10*3/uL [place] # (Auto) 0.7 (0.1-1.2) X10*3/uL Eos # (Auto) 0.1 (0.0-0.4) X10*3/uL Baso # (Auto) 0.1 (0.0-0.2) X10*3/uL Abs Immat Gran (auto) 0.04 H (0.00-0.03) X10*3/uL Absolute Neuts (auto) 8.5 H (2.0-8.3) x10*3/uL Absolute Nucleated RBC 0.000 (0.0-0.012) X10*3/uL Nucleated RBC % (auto) 0.0 (0.0-0.2) /100WBC Sodium 139 (135-145) mmol/L Potassium 3.9 (3.3-5.1) mmol/L Chloride 104 (96-108) mmol/L Carbon Dioxide 23 (22-29) mmol/L Anion Gap 16 (12-20) BUN 11 (9-16) mg/dL Creatinine 0.96 (0.5-1.4) mg/dL Estim Creat Clear Calc 97.1 Estimated GFR > 60 Random Glucose 120 H (60-115) mg/dL Calcium 9.3 (8.4-10.2) mg/dL Beta HCG, Quant < 2 mIU/mL Imaging Data Chest x-ray: Radiologist's impression: FINDINGS: The lungs are well-expanded and clear. The heart size and pulmonary vascularity is normal. There is moderate dextroscoliosis mid to lower dorsal spine. No lytic process seen. XR/XR chest 1V IMPRESSION: Moderate dextroscoliosis mid to lower dorsal spine. ? ECG Data Attestation: I personally reviewed and interpreted this ECG as follows: Interpretation: Normal sinus rate of 80, no st or twave changes Discharge Plan Discharge Clinical Impression: Drug side effects Patient Disposition: Home, Self-Care Prescriptions: No Action ibuprofen 600 mg tablet 600 mg PO Q6H PRN (Reason: pain) Qty: 20 0RF lidocaine 4 % adhesive patch,medicated 1 patch topical Q24H PRN (Reason: pain) 10 Days Qty: 10 0RF Rx Instructions: may leave on for up to 12 hrs ibuprofen 800 mg tablet 800 mg PO Q8H PRN (Reason: pain) Qty: 30 0RF cyclobenzaprine 5 mg tablet 5 mg PO TID PRN (Reason: muscle spasm) Qty: 14 0RF cyclobenzaprine 10 mg tablet 10 mg PO TID Qty: 10 0RF naproxen [Naprosyn] 500 mg tablet 500 mg PO BID Qty: 20 0RF Referrals: Physician,Unknown J [Primary Care Provider] - 5 days Stand Alone Forms: Work/School Release
[2021-11-05 19:42] VITALS: BP 125/73; PULSE 78; RESP 18; O2SAT 99
== END 2021-11-05 19:49 | disposition home or self-care (01) ==
PROVIDERS: Emergency Provider Emergency Medicine
DX: R20.0 Anesthesia of skin (principal); T50.905A Adverse effect of unspecified drugs, medicaments and biological substances, initial encounter; Y92.9 Unspecified place or not applicable
CPT/HCPCS: 36415; 71045; 80048; 84702; 85025; 93005; 99283; 99284

== ENCOUNTER 2022-01-22 02:22 | Emergency (ER) | payer MEDICAID, SELFPAY ==
[2022-01-22 02:26] VITALS: BP 136/87; BP 142/86; PULSE 92; PULSE 93; RESP 18; TEMP 36.6; O2SAT 95; BMI 45.3
--- NOTE | 2022-01-22 02:45 | ED_ITS ---
HPI - Psych General Chief Complaint: ETOH/Substance Use Stated Complaint: Anxiety Time Seen by Provider: 01/22/22 02:45 Source: patient Mode of arrival: EMS Limitations: no limitations History of Present Illness HPI Narrative: Patient came by EMS for evaluation of anxiety and difficulty breathing feels throat tightness after using cocaine for the 1st time 45 minutes prior to arrival patient able to speak full sentences able to swallow and drink fluids saturating 95% on room air feels anxious no lip or tongue swelling no skin rash Related Data Previous Rx's Medication Instructions Recorded cyclobenzaprine 5 mg tablet 5 mg PO TID PRN muscle spasm #14 04/14/20 tabs ibuprofen 800 mg tablet 800 mg PO Q8H PRN pain #30 tabs 04/14/20 lidocaine 4 % topical patch 1 patch topical Q24H PRN pain 10 04/14/20 days #10 ea ibuprofen 600 mg tablet 600 mg PO Q6H PRN pain #20 tabs 06/05/20 cyclobenzaprine 10 mg tablet 10 mg PO TID #10 tabs 09/25/21 naproxen 500 mg tablet (Naprosyn) 500 mg PO BID #20 tabs 09/25/21 Allergies Allergy/AdvReac Type Severity Reaction Status Date / Time aspirin [ASPIRIN] Allergy Intermediate SWELLING Verified 11/05/21 10:00 Review of Systems Review of Systems: Yes all other systems are reviewed and are negative [facility] Past Medical History Medical History Bipolar 1 disorder Carpal tunnel syndrome Depression Scoliosis Social History Social History Alcohol intake: never Advance Directives: No Physical Exam Vital Signs: Vital Signs: Last Vital Signs Temp 98 F 01/22/22 02:26 Pulse 93 01/22/22 02:26 Resp 18 01/22/22 02:26 BP 136/87 01/22/22 02:26 Pulse Ox 95 01/22/22 02:26 O2 Del Method 01/22/22 02:26 BMI result Body Mass Index 45.3 Appearance: Alert. Oriented X3. No acute distress. Anxious Eyes: PERRLA, No Nystagmus ENT: Pharynx normal. Oral Mucosa moist tongue normal lips normal no stridor speaking full sentences Neck: Normal inspection. Neck supple. CVS: Normal heart rate and rhythm. Pulses normal. Respiratory: No respiratory distress. Equal air entry bilateral, no wheezing/rales/rhonchi Abdomen: Soft and nontender. Skin: Skin warm and dry. Normal skin color. Normal skin turgor. Extremities: No lower extremity edema. No calf tenderness Neuro: Oriented X 3. MDM - Psych MDM Narrative Medical decision making narrative: Patient's history of substance abuse feel very anxious was upset because she was sitting on the chair walked out of the ER with stable vitals Differential Diagnosis Differential diagnosis: Likely acute anxiety and mood disorder Discharge Plan Discharge Clinical Impression: Cocaine abuse Patient Disposition: Elopement Instructions: Cocaine Abuse (ED) Additional Instructions: Stop using cocaine follow detox if needed Prescriptions: No Action ibuprofen 600 mg tablet 600 mg PO Q6H PRN (Reason: pain) Qty: 20 0RF lidocaine 4 % adhesive patch,medicated 1 patch topical Q24H PRN (Reason: pain) 10 Days Qty: 10 0RF Rx Instructions: may leave on for up to 12 hrs ibuprofen 800 mg tablet 800 mg PO Q8H PRN (Reason: pain) Qty: 30 0RF cyclobenzaprine 5 mg tablet 5 mg PO TID PRN (Reason: muscle spasm) Qty: 14 0RF cyclobenzaprine 10 mg tablet 10 mg PO TID Qty: 10 0RF naproxen [Naprosyn] 500 mg tablet 500 mg PO BID Qty: 20 0RF Interventions: ED Discharge Assessment Last Done: 01/22/22 03:40 Discharge Date/Time: 01/22/22 03:41
--- NOTE | 2022-01-22 03:36 | PC.NURSE ---
After i triaged this patient, I attempted to administer ordered Benadryl for the patient but I was unable to find her. Assumed eloped at this time - [facility] [place] states pt left after becoming upset about another incident with another pt and she was able to speak to the pt prior to her departure.
--- NOTE | 2022-01-22 04:03 | PC.NURSE ---
I called this patients cell phone number to follow up with her, and she informed me that she was very upset about a comment the doctor made to her and that she observed a hearing impaired patient communicating with staff by writing instead of with an clinical data programmer and this made her more upset and she felt the need to leave before she became more upset., i apologized for anything unsettling that she observed and assured her that we will continue to do our best to care for her and everyone that comes to our ER appropriately She was grateful for the phone call and for the conversation that she was able to have with [facility] prior to leaving. She also stated that all symptoms she presented to the Ed with had resolved and that she felt better.' I encouraged her to return to the ED for any new or concerning symptoms.
== END 2022-01-22 03:41 | disposition left against medical advice (07) ==
PROVIDERS: Emergency Provider Internal Medicine
DX: F41.1 Generalized anxiety disorder (principal); F14.10 Cocaine abuse, uncomplicated; Z79.899 Other long term (current) drug therapy
CPT/HCPCS: 99282

== ENCOUNTER 2022-03-01 00:47 | Emergency (ER) | payer MEDICAID, SELFPAY ==
--- NOTE | ~2022-03-01 | CT_ITS ---
EXAMINATION: CT SOFT TISSUE NECK WITHOUT CONTRAST CLINICAL INFORMATION: Throat pain COMPARISON: None TECHNIQUE: Helical imaging was performed in the axial plane with generation of coronal and sagittal reformatted images. This CT examination was performed using dose optimization techniques as appropriate, variously including the following: *Automated exposure control *Adjustment of mA and/or kV according to patient size (this includes techniques or standardized protocols for targeted exams where dose is matched to indication/reason for exam; i.e. extremities or head) *Use of iterative reconstruction technique DLP: 704 mGy-cm FINDINGS: Suboptimal assessment without intravenous contrast. The nasopharynx, oropharynx, and hypopharynx are patent. No mucosal pharyngeal abnormality is seen. The parapharyngeal fat is preserved. The district attorney, parotid, and submandibular spaces appear normal and symmetric bilaterally. There are multiple scattered cervical lymph nodes bilaterally, a couple of which in level II are mildly enlarged, nonspecific. The carotid vasculature is not adequately assessed without intravenous contrast. The thyroid gland is unremarkable. The lung apices are clear. Visualized portions of the brain parenchyma are unremarkable. The mastoid air cells are well aerated. The paranasal sinuses are clear. The visualized orbits are unremarkable. The mandibular condyles are well-seated in the condylar fossa. No acute fracture is seen. CT/CT soft tissue neck wo IV con IMPRESSION: Multiple scattered cervical lymph nodes bilaterally, a couple of which in the upper neck are mildly enlarged and may be reactive. Otherwise, no acute findings identified.
[2022-03-01 01:00] VITALS: BP 128/77; PULSE 83; RESP 18; TEMP 36.4; O2SAT 97; BMI 47.2
[2022-03-01 01:13] LABS: MANUAL DIFF FLAG NO
[2022-03-01 01:15] LABS: Basophils Percent Auto 0.3 % (0-2); Eosinophils Absolute Auto 0.2 X10*3/uL (0.0-0.4); Eosinophils Percent Auto 1.2 % (0-4); Hematocrit 38.7 % (37.0-47.0); Hemoglobin 13.2 g/dl (12.0-16.0); Imm Gran Abs Auto 0.04 X10*3/uL (0.00-0.03); Imm Gran Pct Auto 0.3 % (0.0-0.4); Lymphocytes Absolute Auto 3.7 X10*3/uL (1.2-4.9); Lymphocytes Percent Auto 29.6 % (20-40); Mean Corpuscular HGB Conc 34.1 g/dl (31.0-35.0); Mean Corpuscular Hemoglobin 28.7 pg (27.0-33.0); Mean Corpuscular Volume 84.1 fL (80.0-98.0); Mean Platelet Volume 10.8 fL (9.4-12.3); Monocytes Absolute Auto 0.7 X10*3/uL (0.1-1.2); Monocytes Percent Auto 5.6 % (2-11); Neutrophils Absolute Auto 7.8 x10*3/uL (2.0-8.3); Platelet Count 282 X10*3/uL (160-400); White Blood Count 12.4 X10*3/uL (4.8-10.8)
--- OUTSIDE RECORDS SUMMARY | 2022-03-01 01:18 | XMS_ITS | Continuity of Care Document ---
:1990 Author Organization [facility] Address [address] [place] [address]- Care Team Providers Name Role Phone Natacha TORRES, Sekou Primary Care Physician Encounter [facility] Date(s): 12/21/20 - 01/20/21 [facility] [address] [place], [place] [address] Attending Physician: Ace Nunez Admitting Physician: Ace Nunez Referring Physician: Ace Nunez Allergies, Adverse Reactions, Alerts Substance Reaction Severity Status aspirin Active Immunizations Given and Recorded Vaccine Date Status Refusal Reason Human Papillomavirus Vaccine 02/04/14 Given tetanus/diphtheria/pertussis, acel(Tdap) 05/28/13 Given Medications Celexa By Mouth, Daily, 0 Refills, Maintenance, 02/04/14 11:09:03 Start Date: 02/04/14 Status: OrderedNuvaRing 0.015 mg-0.120 mg vaginal ring See Instructions, 1 each Vaginally as directed, # 3 each, 4 Refills, Maintenance, 02/04/14 11:19:52,Ring, 1 each Vaginally; as directed Start Date: 02/04/14 Status: Ordered Problem List Condition Effective Dates Status Health Status Informant Maternal obesity syndrome(Confirmed) Active Social History Social History Type Response Smoking Status Never smoker entered on: 07/16/13 Sex
[2022-03-01 01:25] LABS: Strep A Nucleic Acid Negative (Negative)
[2022-03-01 01:49] LABS: Anion Gap 13 (12-20); Blood Urea Nitrogen 10 mg/dL (9-16); Calcium 9.2 mg/dL (8.4-10.2); Carbon Dioxide 22 mmol/L (22-29); Chloride 103 mmol/L (96-108); Creatinine Clr Calc Pharmacy 91.6; Estimated Glomerular Filt Rate > 60; Glucose Random 92 mg/dL (60-115); Potassium 3.9 mmol/L (3.3-5.1); Sodium 134 mmol/L (135-145); TSH reflex Free T4 11.11 uIU/mL (0.32-4.0)
--- NOTE | 2022-03-01 01:51 | ED.GENADULT ---
HPI - General Adult General Chief complaint: General Medical Stated complaint: Unable to swallow Time Seen by Provider: 03/01/22 01:22 Source: patient Limitations: no limitations History of Present Illness HPI narrative: This is a 29-year-old female who complains of progressive difficulty swallowing over the last month. The patient feels like her throat is closing up to the point where she can not swallow her saliva. She is having to spit out her saliva. She denies any sore throat. She denies any trouble breathing. She does have history of thyroid problems. She denies any change in her voice. She has been urinating normally Related Data Previous Rx's Medication Instructions Recorded cyclobenzaprine 5 mg tablet 5 mg PO TID PRN muscle spasm #14 04/14/20 tabs ibuprofen 800 mg tablet 800 mg PO Q8H PRN pain #30 tabs 04/14/20 lidocaine 4 % topical patch 1 patch topical Q24H PRN pain 10 04/14/20 days #10 ea ibuprofen 600 mg tablet 600 mg PO Q6H PRN pain #20 tabs 06/05/20 cyclobenzaprine 10 mg tablet 10 mg PO TID #10 tabs 09/25/21 naproxen 500 mg tablet (Naprosyn) 500 mg PO BID #20 tabs 09/25/21 Allergies Allergy/AdvReac Type Severity Reaction Status Date / Time aspirin [ASPIRIN] Allergy Intermediate SWELLING Verified 03/01/22 01:03 Review of Systems Review of Systems: As per HPI Yes all other systems are reviewed and are negative Constitutional: Constitutional: Reports as per HPI and Denies fever(s) Eyes: Eyes: Reports as per HPI and Reports no additional eye complaints ENT: Reports system reviewed and no additional complaints, except as documented, Reports as per HPI, Denies nasal congestion, Denies nasal discharge and Denies sore throat Comments: Trouble swallowing Cardiovascular: Cardiovascular: Reports as per HPI, Denies chest pain and Denies dyspnea Respiratory: Respiratory: Reports as per HPI, Denies cough and Denies dyspnea Gastrointestinal: Gastrointestinal: Reports as per HPI, Denies abdominal pain, Denies diarrhea and Denies vomiting Genitourinary: Genitourinary: Reports as per HPI, Denies hematuria, Denies urinary frequency and Denies dysuria Musculoskeletal: Musculoskeletal: Reports no additional musculoskeletal complaints and Denies numbness Integumentary/Breasts: Skin/Breast: Reports as per HPI and Denies rash Neurologic: Reports as per HPI, Denies focal weakness and Denies numbness Psychiatric: Psychiatric: Reports no additional psychiatric complaints and Reports as per HPI Endocrine: Endocrine: Reports no additional endocrine complaints and Reports as per HPI Hematologic/Lymphatic: Hematologic/Lymphatic: Reports no additional hematologic/lymphatic complaints, Reports as per HPI and Reports other (No peripheral edema) [facility] Past Medical History Medical History Bipolar 1 disorder Carpal tunnel syndrome Depression Scoliosis Social History Social History Alcohol intake: never Advance Directives: No Advance Directives Information Provided: Yes Physical Exam ED Vital Signs: Vital Signs - 24 hr 03/01/22 01:00 03/01/22 02:00 Temperature 97.5 F 98.5 F Pulse Rate 83 72 Respiratory Rate 18 16 Blood Pressure 128/77 102/45 L Pulse Oximetry 97 98 Oxygen Delivery Method Room Air Room Air BMI result Body Mass Index 47.2 Const Other: Patient repetitively he is beating out saliva into vomit bag. Phonation normal. No stridor. Throat appears normal. No neck mass or adenopathy General: no acute distress Orientation/consciousness: patient oriented x3 HENMT Head: Yes normal to inspection General nose exam: Normal external nose present Mouth: moist mucous membranes Throat: Yes posterior oropharynx normal, Yes tonsils normal and Yes uvula midline Eyes Eyelids: Yes eyelids normal Conjunctivae: conjunctivae normal Pupils: Equal, round and reactive pupils present Neck Neck: Yes supple Resp Effort & Inspection: normal respiratory effort Auscultation: clear to auscultation bilaterally Cardio Rate: regular rate Rhythm: regular rhythm Heart sounds: S1 normal heart sound present, S2 normal heart sound present, no gallops, no murmurs and no rubs GI Inspection: No distended Palpation (GI): Soft to palpation and nontender Auscultation: normal bowel sounds Skin General skin exam: other (Warm and dry) Neuro General: patient oriented x3 and CN's II-XI intact bilaterally Cranial nerves: Yes Equal, round and reactive pupils present Extrem General: Yes no pedal edema Psych Affect: normal affect Attitude: cooperative Medications Administered Discontinued Medications Generic Name Dose Route Start Last Admin Trade Name Freq PRN Reason Stop Dose Admin Sodium Chloride 1,000 mls @ 999 mls/hr 03/01/22 01:45 03/01/22 02:41 Ns IV 03/01/22 02:45 999 mls/hr .Q1H1M RALPH Administration Midazolam HCl 1 mg 03/01/22 02:04 03/01/22 02:41 Midazolam Hcl/Pf 2 Mg/2 Ml Vial IVPUSH 03/01/22 02:05 1 mg ONCE ONE Administration Medical Decision Making MDM Narrative Medical decision making narrative: Patient with progressive dysphagia, just have mildly elevated white blood cell count and TSH however the T4 is normal. Patient appears to have an anxiety on min. Patient will be discharged to home assuming her CT scan is normal. Lab Data Lab results reviewed: Yes I reviewed the patient's lab results. Result diagrams: 03/01/22 01:07 03/01/22 01:07 Labs: Lab Results 03/01/22 03/01/22 03/01/22 Range/Units 01:07 01:07 01:07 WBC 12.4 H (4.8-10.8) X10*3/uL RBC 4.60 (4.20-5.50) X10*6/uL Hgb 13.2 (12.0-16.0) g/dl Hct 38.7 (37.0-47.0) % MCV 84.1 (80.0-98.0) fL MCH 28.7 (27.0-33.0) pg MCHC 34.1 (31.0-35.0) g/dl RDW 14.0 (11.0-16.0) % Plt Count 282 (160-400) X10*3/uL MPV 10.8 (9.4-12.3) fL Immature Gran % (Auto) 0.3 (0.0-0.4) % Neut % (Auto) 63.0 (45-73) % Lymph % (Auto) 29.6 (20-40) % [place] % (Auto) 5.6 (2-11) % Eos % (Auto) 1.2 (0-4) % Baso % (Auto) 0.3 (0-2) % Lymph # (Auto) 3.7 (1.2-4.9) X10*3/uL [place] # (Auto) 0.7 (0.1-1.2) X10*3/uL Eos # (Auto) 0.2 (0.0-0.4) X10*3/uL Baso # (Auto) 0.0 (0.0-0.2) X10*3/uL Abs Immat Gran (auto) 0.04 H (0.00-0.03) X10*3/uL Absolute Neuts (auto) 7.8 (2.0-8.3) x10*3/uL Absolute Nucleated RBC 0.000 (0.0-0.012) X10*3/uL Nucleated RBC % (auto) 0.0 (0.0-0.2) /100WBC Sodium 134 L (135-145) mmol/L Potassium 3.9 (3.3-5.1) mmol/L Chloride 103 (96-108) mmol/L Carbon Dioxide 22 (22-29) mmol/L Anion Gap 13 (12-20) BUN 10 (9-16) mg/dL Creatinine 1.03 (0.5-1.4) mg/dL Estim Creat Clear Calc 91.6 Estimated GFR > 60 Random Glucose 92 (60-115) mg/dL Calcium 9.2 (8.4-10.2) mg/dL TSH 11.11 H (0.32-4.0) uIU/mL Free T4 0.94 (0.71-1.85) ng/dL Beta HCG, Quant < 2 mIU/mL S. pyogenes GrpA LEXIS Negative (Negative) Discharge Plan Discharge Clinical Impression: Dysphagia Patient Disposition: Home, Self-Care Instructions: Dysphagia (ED) Additional Instructions: Drink liquids and soft foods such as yogurt. Follow-up with your primary care physician or an ear nose and throat physician for further evaluation. Prescriptions: No Action ibuprofen 600 mg tablet 600 mg PO Q6H PRN (Reason: pain) Qty: 20 0RF lidocaine 4 % adhesive patch,medicated 1 patch topical Q24H PRN (Reason: pain) 10 Days Qty: 10 0RF Rx Instructions: may leave on for up to 12 hrs ibuprofen 800 mg tablet 800 mg PO Q8H PRN (Reason: pain) Qty: 30 0RF cyclobenzaprine 5 mg tablet 5 mg PO TID PRN (Reason: muscle spasm) Qty: 14 0RF cyclobenzaprine 10 mg tablet 10 mg PO TID Qty: 10 0RF naproxen [Naprosyn] 500 mg tablet 500 mg PO BID Qty: 20 0RF Referrals: Praveen Zendejas [Physician] - 5 days
[2022-03-01 02:00] VITALS: BP 102/45; PULSE 72; RESP 16; TEMP 36.9; O2SAT 98
[2022-03-01] MEDS: 0.9 % Sodium Chloride 1,000 ML 999 ML IV (02:41)
[2022-03-01] MEDS: Midazolam HCl/PF 2 MG/2 ML VIAL 1 MG IVPUSH (02:41)
[2022-03-01 02:42] LABS: Free T4 (Free Thyroxine) 0.94 ng/dL (0.71-1.85)
[2022-03-01 02:50] LABS: HCG Quantitative < 2 mIU/mL
--- NOTE | 2022-03-01 03:28 | PC.NURSE ---
IV acces on left ac noted to have infiltrated. Fluids stopped and iv removed. Four attempts by two RN's failed to re-establish an IV line as hey continued to become infiltrated. MD aware. Ct-scan ordered with IV contrast changed to no contrast by MD provider.
[2022-03-01 04:00] VITALS: BP 96/48; PULSE 61; RESP 16; TEMP 36.7; O2SAT 98
--- NOTE | 2022-03-01 04:58 | PC.NURSE ---
Discharge instructions reviewed with pt. Pt verbalizes understanding.
== END 2022-03-01 04:59 | disposition home or self-care (01) ==
PROVIDERS: Emergency Provider Emergency Medicine
DX: R13.10 Dysphagia, unspecified (principal); M54.2 Cervicalgia; R07.0 Pain in throat; Z79.899 Other long term (current) drug therapy
CPT/HCPCS: 36415; 70490; 80048; 84439; 84443; 84702; 85025; 87651; 96361; 96374; 99284; J2250

== ENCOUNTER 2022-05-19 02:19 | Emergency (ER) | payer MEDICAID, SELFPAY ==
--- NOTE | ~2022-05-19 | XR_ITS ---
EXAMINATION: XR KNEE, RIGHT CLINICAL INFORMATION: Knee pain COMPARISON: None TECHNIQUE: Four views of the right knee. FINDINGS: No fracture or subluxation. Compartmental joint spaces are maintained. No joint effusion. The soft tissues are unremarkable. XR/XR knee RT 4V IMPRESSION: Normal right knee.
[2022-05-19 02:38] VITALS: BP 129/76; PULSE 84; RESP 18; TEMP 36.8; O2SAT 98; BMI 45.3
[2022-05-19 06:15] VITALS: BP 128/77; PULSE 77; RESP 18; TEMP 36.9; O2SAT 98
--- NOTE | 2022-05-19 06:20 | PC.NURSE ---
pt assessed, pt upset she has not seen a provider. aware, pt was told the provider will be in to see her, she refused and did not wait for any d/c papers or AMA form
== END 2022-05-19 06:22 | disposition left against medical advice (07) ==
PROVIDERS: Emergency Provider Internal Medicine
DX: M25.561 Pain in right knee (principal)
CPT/HCPCS: 73564; 99283

== ENCOUNTER 2022-08-30 00:10 | Emergency (ER) | payer MEDICAID, SELFPAY ==
[2022-08-30 00:27] VITALS: BP 145/76; PULSE 82; RESP 18; TEMP 36.7; O2SAT 98; BMI 44.4
[2022-08-30 01:57] LABS: Appearance Urine Clear; Color Urine Yellow; Glucose Urine UA Negative (Negative); Leukocyte Esterase Urine Negative (Negative); Nitrite Urine Negative (Negative); PH 5.5 (5.0-9.0); Specific Gravity - Urine 1.025 (1.005-1.025); UMIC TRIGGER UACC YES; Urine Blood Trace (Negative); Urine Ketones Negative (Negative); Urine Protein 100 (2+) mg/dL (Neg-Trace)
[2022-08-30 01:58] LABS: UPreg QC Valid YES; Urine Pregnancy WEAKLY POSITIVE (NEGATIVE)
[2022-08-30 02:00] LABS: Bacteria Urine None Seen (None Seen); Hyaline Casts Urine 0-2 /LPF (0-2); RBC Urine 0-2 /HPF (0-2); Squamous Epithelial Cell Urine 0-2 /HPF (0-2); WBC Urine 0-5 /HPF (0-5)
--- NOTE | 2022-08-30 03:10 | PC.NURSE ---
Pt ca&ox3, no signs of distress. Pt denies chest pain and sob. Will continue to monitor.
--- NOTE | 2022-08-30 03:17 | ED_ITS ---
HPI - General Adult General Chief complaint: General Medical Stated complaint: requesting test Time Seen by Provider: 08/30/22 03:00 Source: patient Mode of arrival: ambulatory Limitations: no limitations History of Present Illness HPI narrative: 32-year-old female came in requesting a test. Patient had a home test which was positive LMP was 07/13/2022. No abdominal pain, no vaginal bleeding or discharge. Otherwise patient has no complaint. Related Data Previous Rx's Medication Instructions Recorded cyclobenzaprine 5 mg tablet 5 mg PO TID PRN muscle spasm #14 04/14/20 tabs ibuprofen 800 mg tablet 800 mg PO Q8H PRN pain #30 tabs 04/14/20 lidocaine 4 % topical patch 1 patch topical Q24H PRN pain 10 04/14/20 days #10 ea ibuprofen 600 mg tablet 600 mg PO Q6H PRN pain #20 tabs 06/05/20 cyclobenzaprine 10 mg tablet 10 mg PO TID #10 tabs 09/25/21 naproxen 500 mg tablet (Naprosyn) 500 mg PO BID #20 tabs 09/25/21 Allergies Allergy/AdvReac Type Severity Reaction Status Date / Time aspirin [ASPIRIN] Allergy Intermediate SWELLING Verified 08/30/22 00:30 Review of Systems Review of Systems: All other systems are reviewed and are negative Constitutional: Reports as per HPI and Reports no additional constitutional complaints Eyes: Reports as per HPI and Reports no additional eye complaints Reports system reviewed and no additional complaints, except as documented Cardiovascular: Reports as per HPI and Reports no additional cardiovascular complaints Respiratory: Reports as per HPI and Reports no additional respiratory complaints Gastrointestinal: Reports as per HPI and Reports no additional gastrointestinal complaints Genitourinary: Reports no additional female genitourinary complaints Musculoskeletal: Reports no additional musculoskeletal complaints Skin/Breast: Reports system reviewed and no additional complaints, except as docu Psychiatric: Reports no additional psychiatric complaints Endocrine: Reports no additional endocrine complaints Hematologic/Lymphatic: Reports no additional hematologic/lymphatic complaints Allergic/Immunologic: Reports no additional allergic/immunologic complaints Reports system reviewed and no additional complaints, except as documented and Reports Abnormal speech present [facility] Past Medical History Medical History Bipolar 1 disorder Carpal tunnel syndrome Depression Scoliosis Social History Social History Alcohol intake: never Advance Directives: No Advance Directives Information Provided: No Physical Exam ED Vital Signs: Vital Signs - 24 hr 08/30/22 00:27 Temperature 98.1 F Pulse Rate 82 Respiratory Rate 18 Blood Pressure 145/76 H Pulse Oximetry 98 Oxygen Delivery Method Room Air BMI result Body Mass Index 44.4 Vital signs have been reviewed as appeared to be correct. Blood pressure normal. Heart rate normal. Respiration rate normal. Temperature normal. Oxygen saturation normal. Appearance: Alert. Oriented X3. No acute distress. Head: Normal external exam. Normocephalic. Atraumatic. No Boland signs noted. No raccoon eyes noted Eyes: PERRLA. EOMI. Conjunctiva and sclera normal. Eyelids normal. ENT: TM's Normal. Pharynx normal. Uvula midline. Moist mucous membranes. No trismus noted. No drooling noted. No muffled voice noted. Neck: Normal inspection. Neck supple. FROM. No adenopathy. Thyroid Normal. No meningeal signs. No neck mass noted. CVS: Normal heart rate and rhythm. Heart sound normal. No murmurs noted. Pulses normal throughout. Respiratory: No respiratory distress. Painless inspiration. Breath sounds normal. No wheezes/rales/rhonchi noted. Chest nontender. No accessory muscle usage noted or decreased air movement noted. Abdomen: Soft and nontender. Bowel sounds normal in all 4 quadrants. No distention noted. No organomegaly noted. No visible injury noted. Back: No CVA tenderness. Full range of motion noted. Skin: Skin warm and dry. Normal skin color. Normal skin turgor. No rashes/lesions/lacerations noted. Extremities: No lower extremity edema. Extremities exhibit normal range of motion. Extremities nontender. Neuro: Oriented X 3. Cranial nerve exam: II-XII are grossly intact No motor deficit. No sensory deficit. Reflexes normal. Course Course Course Narrative: Early non complicated . Medical Decision Making Differential Diagnosis Differential Diagnoses: The differential diagnosis associated with the presentation includes (, UTI) Lab Data MDM Lab Attestation statement: I reviewed the patient's lab results. Labs: Lab Results 08/30/22 08/30/22 Range/Units 01:49 01:49 Urine Color Yellow Urine Appearance Clear Urine pH 5.5 (5.0-9.0) Ur Specific [place] 1.025 (1.005-1.025) Urine Protein 100 (2+) H (Neg-Trace) mg/dL Urine Glucose (UA) Negative (Negative) mg/dL Urine Ketones Negative (Negative) mg/dL Urine Blood Trace H (Negative) Urine Nitrite Negative (Negative) Ur Leukocyte Esterase Negative (Negative) Urine RBC 0-2 (0-2) /HPF Urine WBC 0-5 (0-5) /HPF Ur Squamous Epith Cells 0-2 (0-2) /HPF Urine Bacteria None Seen (None Seen) Hyaline Casts 0-2 (0-2) /LPF Urine Test WEAKLY POSITIVE H (NEGATIVE) Discharge Plan Discharge Clinical Impression: Early stage of Patient Disposition: Home, Self-Care Instructions: (ED) Prescriptions: No Action ibuprofen 600 mg tablet 600 mg PO Q6H PRN (Reason: pain) Qty: 20 0RF lidocaine 4 % adhesive patch,medicated 1 patch topical Q24H PRN (Reason: pain) 10 Days Qty: 10 0RF Rx Instructions: may leave on for up to 12 hrs ibuprofen 800 mg tablet 800 mg PO Q8H PRN (Reason: pain) Qty: 30 0RF cyclobenzaprine 5 mg tablet 5 mg PO TID PRN (Reason: muscle spasm) Qty: 14 0RF cyclobenzaprine 10 mg tablet 10 mg PO TID Qty: 10 0RF naproxen [Naprosyn] 500 mg tablet 500 mg PO BID Qty: 20 0RF Referrals: [facility] [Primary Care Provider] - Stand Alone Forms: Work/School Release
[2022-08-30 03:26] VITALS: BP 111/71; PULSE 75; RESP 16; TEMP 37.3; O2SAT 97
== END 2022-08-30 03:37 | disposition home or self-care (01) ==
PROVIDERS: Emergency Provider Emergency Medicine
DX: Z32.01 Encounter for pregnancy test, result positive (principal)
CPT/HCPCS: 81001; 81025; 99282; 99284

== ENCOUNTER 2022-10-12 01:33 | Emergency (ER) | payer MEDICAID, SELFPAY ==
[2022-10-12 01:38] VITALS: BP 126/67; PULSE 83; RESP 18; TEMP 36.8; O2SAT 97; BMI 44.6
[2022-10-12 01:56] LABS: Basophils Percent Auto 0.2 % (0-2); Eosinophils Absolute Auto 0.2 X10*3/uL (0.0-0.4); Eosinophils Percent Auto 1.1 % (0-4); Hematocrit 35.1 % (37.0-47.0); Hemoglobin 11.9 g/dl (12.0-16.0); Imm Gran Abs Auto 0.05 X10*3/uL (0.00-0.03); Imm Gran Pct Auto 0.4 % (0.0-0.4); Lymphocytes Absolute Auto 2.9 X10*3/uL (1.2-4.9); Lymphocytes Percent Auto 21.4 % (20-40); MANUAL DIFF FLAG NO; Mean Corpuscular HGB Conc 33.9 g/dl (31.0-35.0); Mean Corpuscular Hemoglobin 29.6 pg (27.0-33.0); Mean Corpuscular Volume 87.3 fL (80.0-98.0); Mean Platelet Volume 10.8 fL (9.4-12.3); Monocytes Absolute Auto 0.5 X10*3/uL (0.1-1.2); Neutrophils Absolute Auto 9.9 x10*3/uL (2.0-8.3); Neutrophils Percent Auto 72.9 % (45-73); Platelet Count 227 X10*3/uL (160-400); Red Blood Count 4.02 X10*6/uL (4.20-5.50); Red Cell Distribution Width 13.4 % (11.0-16.0); White Blood Count 13.5 X10*3/uL (4.8-10.8)
[2022-10-12 02:07] LABS: Anion Gap 17 (12-20); Blood Urea Nitrogen 10 mg/dL (9-16); Calcium 9.6 mg/dL (8.4-10.2); Carbon Dioxide 21 mmol/L (22-29); Chloride 104 mmol/L (96-108); Creatinine Clr Calc Pharmacy 109.9; Estimated Glomerular Filt Rate > 60; Glucose Random 123 mg/dL (60-115); Potassium 3.7 mmol/L (3.3-5.1); Sodium 138 mmol/L (135-145)
[2022-10-12 02:27] LABS: Appearance Urine Clear; Color Urine Yellow; Glucose Urine UA Negative (Negative); Leukocyte Esterase Urine Negative (Negative); Nitrite Urine Negative (Negative); PH 5.5 (5.0-9.0); Specific Gravity - Urine 1.025 (1.005-1.025); UMIC TRIGGER UACC YES; Urine Blood Trace (Negative); Urine Ketones Negative (Negative); Urine Protein 300 (3+) mg/dL (Neg-Trace)
[2022-10-12 02:29] LABS: UPreg QC Valid YES; Urine Pregnancy POSITIVE (NEGATIVE)
[2022-10-12 02:32] LABS: Bacteria Urine Trace (None Seen); RBC Urine 0-2 /HPF (0-2); WBC Urine 0-5 /HPF (0-5)
== END 2022-10-12 05:05 | disposition left against medical advice (07) ==
PROVIDERS: Emergency Provider Emergency Medicine; PCP Registered Nurse
DX: O26.891 Other specified pregnancy related conditions, first trimester (principal); R10.2 Pelvic and perineal pain; Z3A.11 11 weeks gestation of pregnancy
CPT/HCPCS: 36415; 80048; 81001; 81025; 85025; 99282; 99283

== ENCOUNTER 2022-10-22 17:26 | Emergency (ER) | payer MEDICAID, SELFPAY ==
--- NOTE | ~2022-10-22 | US_ITS ---
EXAMINATION: US OBSTETRICAL ULTRASOUND CLINICAL INFORMATION: Bleeding. . COMPARISON: Definite [facility] with no available images. LMP: Unknown. Gestational age by maternal dates is unknown unknown. Estimated date of delivery by maternal dates is to 624 based on first ultrasound at [facility]. TECHNIQUE: Routine transabdominal imaging of pelvis was performed. FINDINGS: There is a single intrauterine gestational sac with visible yolk sac, embryo/fetus, and cardiac activity. There is no significant subchorionic hemorrhage or hematoma. HR: 172 beats per minute. CRL (crown rump length): 5.58 cm (12 weeks and 2 days +/- 4 days). RACHEL (estimated date of delivery): 05/04/2023 +/- 4 days. MATERNAL ADNEXA: The right maternal ovary measures 4.7 x 2.5 x 3.4 cm. There is a corpus luteal cyst measuring 2.3 x 2.2 x 2.2 The left maternal ovary measures 3.9 x 2.2 x 2.7 cm. No focal lesion seen There is no significant maternal adnexal mass. No maternal pelvic ascites. US/US OB <= 14 weeks fetus IMPRESSION: 1. Single live intrauterine with ultrasound gestational age of 12 weeks and 2 days +/- 4 days. 2. Estimated date of delivery is 05/04/2023 +/- 4 days. 3. Small corpus luteal cyst right ovary.
[2022-10-22 17:42] VITALS: BP 120/64; PULSE 83; RESP 18; TEMP 36.4; O2SAT 98; BMI 45.4
--- NOTE | 2022-10-22 17:43 | ED_ITS ---
HPI - General Adult General Chief complaint: Vaginal Bleeding Stated complaint: 13 weeks /used bathroom and wiped blood Time Seen by Provider: 10/22/22 21:07 Source: patient Mode of arrival: ambulatory Limitations: no limitations History of Present Illness HPI narrative: Patient comes in the emergency room complaining of vaginal bleeding. Patient is a at approximately 12-13 weeks of gestational age. Patient states that last evening she noticed a pinkish discharge. Today she noticed the same when wiping after using the restroom. Patient denies any heavy vaginal bleeding or passing blood clots. Patient denies abdominal pain, no URI or UTI symptoms. Related Data Previous Rx's Medication Instructions Recorded cyclobenzaprine 5 mg tablet 5 mg PO TID PRN muscle spasm #14 04/14/20 tabs ibuprofen 800 mg tablet 800 mg PO Q8H PRN pain #30 tabs 04/14/20 lidocaine 4 % topical patch 1 patch topical Q24H PRN pain 10 04/14/20 days #10 ea ibuprofen 600 mg tablet 600 mg PO Q6H PRN pain #20 tabs 06/05/20 cyclobenzaprine 10 mg tablet 10 mg PO TID #10 tabs 09/25/21 naproxen 500 mg tablet (Naprosyn) 500 mg PO BID #20 tabs 09/25/21 Allergies Allergy/AdvReac Type Severity Reaction Status Date / Time aspirin [ASPIRIN] Allergy Intermediate SWELLING Verified 10/22/22 17:42 Review of Systems Review of Systems: Constitutional : No Weight loss, No Fever, No Chills, No Night Sweats, No Fatigue, No Malaise ENT/Mouth : No Hearing loss, No Ear Pain, No Nasal Congestion, No Sinus Pain, No Hoarseness, No sore throat, No Rhinorrhea, No Swallowing Difficulty Eyes: No Eye Pain, No Swelling, No Redness, No Foreign Body, No Discharge, No Vision Changes Cardiovascular : No Chest Pain, No SOB, No Dyspnea on Exertion, No Orthopnea, No Edema, No Palpitations Respiratory : No Cough, No Sputum, No Wheezing, No Smoke Exposure, No Dyspnea Gastrointestinal : No Nausea, No Vomiting, No Diarrhea, No Constipation, No abdominal Pain, No Hematochezia, No Melena Genitourinary : Complaining of pinkish vaginal discharge, No Dysuria, No Urinary Frequency, No Hematuria, No Urinary Incontinence, No Urgency, No Flank Pain, No Urinary Flow Changes, No Hesitancy Musculoskeletal : No joint pain, No Myalgias, No Joint Swelling Skin : No Skin Lesions, No rash Neuro : No Weakness, No Numbness, No Paresthesias, No Loss of Consciousness, No Dizziness, No Headache Psych : No Anxiety/Panic, No Depression, No SI/HI/AH/VH, No Social Issues, Heme/Lymph: No Bruising, No Bleeding,No Lymphadenopathy Endocrine : No Polyuria, No Polydipsia, No Temperature Intolerance [facility] Past Medical History Medical History Bipolar 1 disorder Carpal tunnel syndrome Depression Scoliosis Social History Social History Alcohol intake: never Advance Directives: No Advance Directives Information Provided: Yes Physical Exam ED Vital Signs: Vital Signs - 24 hr 10/22/22 17:42 Temperature 97.5 F Pulse Rate 83 Respiratory Rate 18 Blood Pressure 120/64 Pulse Oximetry 98 Oxygen Delivery Method Room Air BMI result Body Mass Index 45.4 Const Other: Appearance: Alert. Oriented X3. No acute distress. Well-appearing Eyes: Pupils equal, round and reactive to light. ENT: Pharynx normal. Neck: Normal inspection. Neck supple. No lymph nodes noted. No crepitus CVS: Normal heart rate and rhythm. Pulses normal. Normal S1 and S2 Respiratory: No respiratory distress. Breath sounds normal. No Wheezing. No rales Abdomen: Soft and nontender. No rigidity. No distention. : No blood visualized in vaginal canal, cervical os is closed Skin: Skin warm and dry. Normal skin color. Normal skin turgor. Extremities: No lower extremity edema. No Lacerations. No Rash Neuro: Oriented X 3. No motor deficit. No sensory deficit. Moving all extremities. No slurred speech. CN 2 through 12 grossly intact Psych: calm, cooperative, normal affect Course Course Course Narrative: RME- 32-year-old female presents for evaluation of vaginal bleeding. Patient reports that she is approximately 13 weeks . She reports that she is . Plan for labs, UA, ultrasound Medical Decision Making Medical Decision Making [facility] Narrative: -patient is O-positive blood type, RhoGAM not indicated -my interpretation of labs, white blood cell count normal, chemistry within normal limits -urinalysis pending - ultrasound shows a single live intrauterine at an approximate gestational age of 12 weeks and 2 days -urinalysis is negative for UTI. Patient instructed to follow-up with his primary care physician, advised pelvic rest. -discussed with the patient that the diagnosis is threatened miscarriage. On physical exam, cervix is closed, there was no blood present, all good signs that the patient may progress to a normal -patient is already being seen by OB Gyne. Patient will follow-up with her providers Differential Diagnosis Differential Diagnoses: The differential diagnosis associated with the presentation includes (UTI, threatened , miscarriage) Lab Data MDM Lab Attestation statement: I reviewed the patient's lab results. 10/22/22 18:04 10/22/22 18:04 Labs: Lab Results 10/22/22 10/22/22 10/22/22 Range/Units 18:04 18:04 18:04 WBC 10.6 (4.8-10.8) X10*3/uL RBC 4.18 L (4.20-5.50) X10*6/uL Hgb 12.1 (12.0-16.0) g/dl Hct 37.0 (37.0-47.0) % MCV 88.5 (80.0-98.0) fL MCH 28.9 (27.0-33.0) pg MCHC 32.7 (31.0-35.0) g/dl RDW 13.7 (11.0-16.0) % Plt Count 241 (160-400) X10*3/uL MPV 11.0 (9.4-12.3) fL Immature Gran % (Auto) 0.6 H (0.0-0.4) % Neut % (Auto) 70.2 (45-73) % Lymph % (Auto) 21.8 (20-40) % [place] % (Auto) 5.8 (2-11) % Eos % (Auto) 1.3 (0-4) % Baso % (Auto) 0.3 (0-2) % Lymph # (Auto) 2.3 (1.2-4.9) X10*3/uL [place] # (Auto) 0.6 (0.1-1.2) X10*3/uL Eos # (Auto) 0.1 (0.0-0.4) X10*3/uL Baso # (Auto) 0.0 (0.0-0.2) X10*3/uL Abs Immat Gran (auto) 0.06 H (0.00-0.03) X10*3/uL Absolute Neuts (auto) 7.5 (2.0-8.3) x10*3/uL Absolute Nucleated RBC 0.000 (0.0-0.012) X10*3/uL Nucleated RBC % (auto) 0.0 (0.0-0.2) /100WBC PT 11.3 (11.1-13.3) SEC INR 0.9 (0.9-1.1) APTT 29.9 (26.0-36.4) SEC Sodium 136 (135-145) mmol/L Potassium 3.6 (3.3-5.1) mmol/L Chloride 105 (96-108) mmol/L Carbon Dioxide 22 (22-29) mmol/L Anion Gap 13 (12-20) BUN 11 (9-16) mg/dL Creatinine 0.65 (0.5-1.4) mg/dL Estim Creat Clear Calc 140.3 Estimated GFR > 60 Random Glucose 104 (60-115) mg/dL Calcium 9.0 D (8.4-10.2) mg/dL Total Bilirubin 0.1 (0.0-1.0) mg/dL AST 12 (5-31) U/L ALT 12 (0-31) U/L Alkaline Phosphatase 68 (39-117) U/L Total Protein 7.1 (6.5-8.0) g/dL Albumin 3.4 L (3.5-5.0) g/dL Lipase 16 (8-78) U/L Beta HCG, Quant mIU/mL Urine Color Urine Appearance Urine pH (5.0-9.0) Ur Specific [place] (1.005-1.025) Urine Protein (Neg-Trace) mg/dL Urine Glucose (UA) (Negative) mg/dL Urine Ketones (Negative) mg/dL Urine Blood (Negative) Urine Nitrite (Negative) Ur Leukocyte Esterase (Negative) Blood Type 10/22/22 10/22/22 10/22/22 Range/Units 18:04 21:45 22:52 WBC (4.8-10.8) X10*3/uL RBC (4.20-5.50) X10*6/uL Hgb (12.0-16.0) g/dl Hct (37.0-47.0) % MCV (80.0-98.0) fL MCH (27.0-33.0) pg MCHC (31.0-35.0) g/dl RDW (11.0-16.0) % Plt Count (160-400) X10*3/uL MPV (9.4-12.3) fL Immature Gran % (Auto) (0.0-0.4) % Neut % (Auto) (45-73) % Lymph % (Auto) (20-40) % [place] % (Auto) (2-11) % Eos % (Auto) (0-4) % Baso % (Auto) (0-2) % Lymph # (Auto) (1.2-4.9) X10*3/uL [place] # (Auto) (0.1-1.2) X10*3/uL Eos # (Auto) (0.0-0.4) X10*3/uL Baso # (Auto) (0.0-0.2) X10*3/uL Abs Immat Gran (auto) (0.00-0.03) X10*3/uL Absolute Neuts (auto) (2.0-8.3) x10*3/uL Absolute Nucleated RBC (0.0-0.012) X10*3/uL Nucleated RBC % (auto) (0.0-0.2) /100WBC PT (11.1-13.3) SEC INR (0.9-1.1) APTT (26.0-36.4) SEC Sodium (135-145) mmol/L Potassium (3.3-5.1) mmol/L Chloride (96-108) mmol/L Carbon Dioxide (22-29) mmol/L Anion Gap (12-20) BUN (9-16) mg/dL Creatinine (0.5-1.4) mg/dL Estim Creat Clear Calc Estimated GFR Random Glucose (60-115) mg/dL Calcium (8.4-10.2) mg/dL Total Bilirubin (0.0-1.0) mg/dL AST (5-31) U/L ALT (0-31) U/L Alkaline Phosphatase (39-117) U/L Total Protein (6.5-8.0) g/dL Albumin (3.5-5.0) g/dL Lipase (8-78) U/L Beta HCG, Quant 70557 mIU/mL Urine Color Yellow Urine Appearance Clear Urine pH 6.0 (5.0-9.0) Ur Specific [place] 1.025 (1.005-1.025) Urine Protein 300 (3+) H (Neg-Trace) mg/dL Urine Glucose (UA) Negative (Negative) mg/dL Urine Ketones Negative (Negative) mg/dL Urine Blood Small (1+) H (Negative) Urine Nitrite Negative (Negative) Ur Leukocyte Esterase Negative (Negative) Blood Type O Positive Independent Interpretation I performed an independent interpretation of an: Ultrasound (My interpretation of ultrasound, there is alive in utero) Radiology Impression Discussion of test interpretation with radiology: I have reviewed the radiologist's reading. Radiologist Impression: FINDINGS: There is a single intrauterine gestational sac with visible yolk sac, embryo/fetus, and cardiac activity.? There is no significant subchorionic hemorrhage or hematoma. HR:? 172 beats per minute. CRL (crown rump length): ? 5.58 cm (12 weeks and 2 days +/- 4 days). RACHEL (estimated date of delivery):? 05/04/2023 +/- 4 days. ? MATERNAL ADNEXA: ? ? The right maternal ovary measures 4.7 x 2.5 x 3.4 cm.? There is a corpus luteal cyst measuring 2.3 x 2.2 x 2.2 The left maternal ovary measures 3.9 x 2.2 x 2.7 cm.? No focal lesion seen There is no significant maternal adnexal mass.? No maternal pelvic ascites. US/US OB <= 14 weeks fetus IMPRESSION: 1. Single live intrauterine with ultrasound gestational age of? 12 weeks and 2 days +/- 4 days. 2. Estimated date of delivery is 05/04/2023 +/- 4 days. 3. Small corpus luteal cyst right ovary. Discharge Plan Discharge Clinical Impression: Threatened miscarriage Patient Disposition: Home, Self-Care Instructions: Threatened Miscarriage (ED) Additional Instructions: Please follow-up with your primary care physician tomorrow. If you have any worsening or new symptoms, please return to the emergency room or call 911 Prescriptions: No Action ibuprofen 600 mg tablet 600 mg PO Q6H PRN (Reason: pain) Qty: 20 0RF lidocaine 4 % adhesive patch,medicated 1 patch topical Q24H PRN (Reason: pain) 10 Days Qty: 10 0RF Rx Instructions: may leave on for up to 12 hrs ibuprofen 800 mg tablet 800 mg PO Q8H PRN (Reason: pain) Qty: 30 0RF cyclobenzaprine 5 mg tablet 5 mg PO TID PRN (Reason: muscle spasm) Qty: 14 0RF cyclobenzaprine 10 mg tablet 10 mg PO TID Qty: 10 0RF naproxen [Naprosyn] 500 mg tablet 500 mg PO BID Qty: 20 0RF
[2022-10-22 18:12] LABS: MANUAL DIFF FLAG NO
[2022-10-22 18:24] LABS: INTERNATIONAL NORM RATIO 0.9 (0.9-1.1); Prothrombin Time 11.3 SEC (11.1-13.3)
[2022-10-22 18:26] LABS: Basophils Percent Auto 0.3 % (0-2); Eosinophils Absolute Auto 0.1 X10*3/uL (0.0-0.4); Eosinophils Percent Auto 1.3 % (0-4); Hemoglobin 12.1 g/dl (12.0-16.0); Imm Gran Abs Auto 0.06 X10*3/uL (0.00-0.03); Imm Gran Pct Auto 0.6 % (0.0-0.4); Lymphocytes Absolute Auto 2.3 X10*3/uL (1.2-4.9); Lymphocytes Percent Auto 21.8 % (20-40); Mean Corpuscular HGB Conc 32.7 g/dl (31.0-35.0); Mean Corpuscular Hemoglobin 28.9 pg (27.0-33.0); Mean Corpuscular Volume 88.5 fL (80.0-98.0); Monocytes Absolute Auto 0.6 X10*3/uL (0.1-1.2); Monocytes Percent Auto 5.8 % (2-11); Neutrophils Absolute Auto 7.5 x10*3/uL (2.0-8.3); Neutrophils Percent Auto 70.2 % (45-73); Platelet Count 241 X10*3/uL (160-400); Red Blood Count 4.18 X10*6/uL (4.20-5.50); Red Cell Distribution Width 13.7 % (11.0-16.0); White Blood Count 10.6 X10*3/uL (4.8-10.8)
[2022-10-22 18:27] LABS: Partial Thromboplastin Time 29.9 SEC (26.0-36.4)
[2022-10-22 18:35] LABS: Alanine Aminotransferase 12 U/L (0-31); Albumin Level 3.4 g/dL (3.5-5.0); Alkaline Phosphatase 68 U/L (39-117); Anion Gap 13 (12-20); Aspartate Amino Transferase 12 U/L (5-31); Bilirubin Total 0.1 mg/dL (0.0-1.0); Blood Urea Nitrogen 11 mg/dL (9-16); Carbon Dioxide 22 mmol/L (22-29); Chloride 105 mmol/L (96-108); Creatinine Clr Calc Pharmacy 140.3; Estimated Glomerular Filt Rate > 60; Glucose Random 104 mg/dL (60-115); Lipase 16 U/L (8-78); Potassium 3.6 mmol/L (3.3-5.1); Sodium 136 mmol/L (135-145); Total Protein 7.1 g/dL (6.5-8.0)
[2022-10-22 19:26] LABS: HCG Quantitative 38282 mIU/mL
[2022-10-22 22:59] LABS: Appearance Urine Clear; Color Urine Yellow; Glucose Urine UA Negative (Negative); Leukocyte Esterase Urine Negative (Negative); Nitrite Urine Negative (Negative); Specific Gravity - Urine 1.025 (1.005-1.025); UMIC TRIGGER UACC YES; Urine Blood Small (1+) (Negative); Urine Ketones Negative (Negative); Urine Protein 300 (3+) mg/dL (Neg-Trace)
[2022-10-22 23:15] LABS: Bacteria Urine Trace (None Seen); Hyaline Casts Urine 0-2 /LPF (0-2); WBC Urine 0-5 /HPF (0-5)
--- NOTE | 2022-10-22 23:55 | PC.NURSE ---
no vag bleeding noted. respirations nonlabored. gait steady. skin color norm/warm/dry/intact. attempted to obtain FHR unsuccessful--pt only 13 weeks . will f/u with OB
== END 2022-10-22 23:57 | disposition home or self-care (01) ==
PROVIDERS: Physician Assistant; Emergency Provider Emergency Medicine
DX: O20.0 Threatened abortion (principal); O34.81 Maternal care for other abnormalities of pelvic organs, first trimester; N83.11 Corpus luteum cyst of right ovary; Z3A.12 12 weeks gestation of pregnancy
CPT/HCPCS: 36415; 76801; 80053; 81001; 83690; 84702; 85025; 85610; 85730; 86900; 86901; 99282; 99284

== ENCOUNTER 2022-11-30 01:36 | Emergency (ER) | payer MEDICAID, SELFPAY ==
--- NOTE | ~2022-11-30 | US_ITS ---
EXAMINATION: Ultrasound OB Limited CLINICAL INFORMATION: Vaginal bleeding COMPARISON: Previous ultrasound 10/22/2022 TECHNIQUE: Transabdominal Limited OB ultrasound FINDINGS: There is a single viable intrauterine in breech position. heart rate is 160 bpm. There is an anterior placenta. The placenta appears low lying. The cervix appears long and closed measuring 4.9 cm in length. measurements: BPD 3.9 cm suggesting gestational age 17 weeks 6 days. Head circumference 14.9 cm suggesting gestational age 18 weeks 0 days. Abdominal circumference measuring 12.6 cm suggesting gestational age 18 weeks 2 days. Femur length measuring 2.6 cm suggesting gestational age 18 weeks 0 days. measurements are concordant. From today's measurements, gestational age is estimated at 18 weeks 1 day. From earliest ultrasound September 2022 gestational age is estimated at 17 weeks 6 days. Gestational age is estimated at 17 weeks 4 days by LMP. The left maternal ovary is normal. The right maternal ovary is not seen. There is no fluid seen in the maternal pelvis. US/US OB limited IMPRESSION: Single viable intrauterine . measurements are concordant and match previous exam and LMP. Low-lying anterior placenta.
[2022-11-30 01:58] VITALS: BP 125/67; PULSE 92; RESP 18; TEMP 37; O2SAT 97; BMI 48.4
--- NOTE | 2022-11-30 02:37 | ED.PREGNANCY ---
HPI - General Chief complaint: Vaginal Bleeding Stated complaint: Vaginal bleeding with pain, Time Seen by Provider: 11/30/22 02:31 Source: patient Mode of arrival: ambulatory Limitations: no limitations History of Present Illness HPI Narrative: Patient is a at 18 weeks of gestational age. Patient states that yesterday, she had a sharp left lower quadrant pain that self-resolved. Today, patient was taking a shower and noticed that she had vaginal bleeding. Patient states he was like a normal period. At this time, patient denies abdominal cramping, no fever chills, no dysuria. Patient has been having follow-up with her OB Gyne for care. At approximately 12 weeks of gestational age, patient came to the emergency room with vaginal which self-resolved in the continued. Related Data Previous Rx's Medication Instructions Recorded cyclobenzaprine 5 mg tablet 5 mg PO TID PRN muscle spasm #14 04/14/20 tabs ibuprofen 800 mg tablet 800 mg PO Q8H PRN pain #30 tabs 04/14/20 lidocaine 4 % topical patch 1 patch topical Q24H PRN pain 10 04/14/20 days #10 ea ibuprofen 600 mg tablet 600 mg PO Q6H PRN pain #20 tabs 06/05/20 cyclobenzaprine 10 mg tablet 10 mg PO TID #10 tabs 09/25/21 naproxen 500 mg tablet (Naprosyn) 500 mg PO BID #20 tabs 09/25/21 Allergies Allergy/AdvReac Type Severity Reaction Status Date / Time aspirin [ASPIRIN] Allergy Intermediate SWELLING Verified 10/22/22 17:42 Review of Systems Review of Systems: Constitutional : No Weight loss, No Fever, No Chills, No Night Sweats, No Fatigue, No Malaise ENT/Mouth : No Hearing loss, No Ear Pain, No Nasal Congestion, No Sinus Pain, No Hoarseness, No sore throat, No Rhinorrhea, No Swallowing Difficulty Eyes: No Eye Pain, No Swelling, No Redness, No Foreign Body, No Discharge, No Vision Changes Cardiovascular : No Chest Pain, No SOB, No Dyspnea on Exertion, No Orthopnea, No Edema, No Palpitations Respiratory : No Cough, No Sputum, No Wheezing, No Smoke Exposure, No Dyspnea Gastrointestinal : No Nausea, No Vomiting, No Diarrhea, No Constipation, No abdominal Pain, No Hematochezia, No Melena Genitourinary : Complaining of vaginal bleeding during , No Dysuria, No Urinary Frequency, No Hematuria, No Urinary Incontinence, No Urgency, No Flank Pain, No Urinary Flow Changes, No Hesitancy Musculoskeletal : No joint pain, No Myalgias, No Joint Swelling Skin : No Skin Lesions, No rash Neuro : No Weakness, No Numbness, No Paresthesias, No Loss of Consciousness, No Dizziness, No Headache Psych : No Anxiety/Panic, No Depression, No SI/HI/AH/VH, No Social Issues, Heme/Lymph: No Bruising, No Bleeding,No Lymphadenopathy Endocrine : No Polyuria, No Polydipsia, No Temperature Intolerance [facility] Past Medical History Medical History Bipolar 1 disorder Carpal tunnel syndrome Depression Scoliosis Social History Social History Alcohol intake: never Smoked in Last 30 Days: No Use of substances other than those prescribed or required for medical reasons: No Advance Directives: No Advance Directives Information Provided: Yes Patient : Yes Physical Exam Vital Signs: Vital Signs: Last Vital Signs Temp 98.8 F 11/30/22 05:59 Pulse 81 11/30/22 05:59 Resp 16 11/30/22 05:59 BP 106/56 L 11/30/22 05:59 Pulse Ox 98 11/30/22 05:59 O2 Del Method Room Air 11/30/22 05:59 BMI result Body Mass Index 48.4 Const: Other: Appearance: Alert. Oriented X3. No acute distress. Eyes: Pupils equal, round and reactive to light. ENT: Pharynx normal. Neck: Normal inspection. Neck supple. No lymph nodes noted. No crepitus CVS: Normal heart rate and rhythm. Pulses normal. Normal S1 and S2 Respiratory: No respiratory distress. Breath sounds normal. No Wheezing. No rales Abdomen: Soft and nontender. No rigidity. No distention. : Small amount of blood clots in the vaginal vault, cervix is closed Skin: Skin warm and dry. Normal skin color. Normal skin turgor. Extremities: No lower extremity edema. No Lacerations. No Rash Neuro: Oriented X 3. No motor deficit. No sensory deficit. Moving all extremities. No slurred speech. CN 2 through 12 grossly intact Psych: calm, cooperative, normal affect Course Course Course Narrative: -patient is known to be O+ blood type -of patient's labs pending -OB ultrasound pending Medical Decision Making Medical Decision Making MDM Narrative: -small amount of blood in the vaginal canal, no active bleeding, cervix closed -per our automotive maintenance technician who did ultrasound, heart rate 160, good movement. [place] [facility] report still pending. -I was able to get in touch with OB Gyne from [facility], I spoke to Dr. Parisi, since the patient is asymptomatic at this time, not bleeding, patient may be discharged home with good follow-up, if patient continues being, patient is to report immediately to [facility]. -this time, obstetrics ultrasound report is still pending. -at this time, 07:07, patient asymptomatic, ultrasound does show a viable , heart rate in the 160s -discussed the results with the patient, patient referred to go home. Patient reports no further vaginal bleeding or abdominal pain. Patient asymptomatic. Patient knows to report to [facility] if her symptoms recur Differential Diagnosis Differential Diagnoses: The differential diagnosis associated with the presentation includes (Threatened , miscarriage) Admission/Observation Consideration of admission/observation: Escalation of care including admission/observation considered [facility] Consult Healthcare Provider Management of the patient was discussed with: Human Resources Director (barbie) Lab Data [facility] Lab Attestation statement: I reviewed the patient's lab results. 11/30/22 02:44 11/30/22 02:44 Labs: Lab Results 11/30/22 11/30/22 11/30/22 Range/Units 02:44 02:44 02:44 WBC 11.6 H (4.8-10.8) X10*3/uL RBC 3.67 L (4.20-5.50) X10*6/uL Hgb 10.8 L (12.0-16.0) g/dl Hct 31.6 L (37.0-47.0) % MCV 86.1 (80.0-98.0) fL MCH 29.4 (27.0-33.0) pg MCHC 34.2 (31.0-35.0) g/dl RDW 13.4 (11.0-16.0) % Plt Count 201 (160-400) X10*3/uL MPV 10.4 (9.4-12.3) fL Immature Gran % (Auto) 0.7 H (0.0-0.4) % Neut % (Auto) 69.7 (45-73) % Lymph % (Auto) 21.8 (20-40) % [place] % (Auto) 6.8 (2-11) % Eos % (Auto) 0.8 (0-4) % Baso % (Auto) 0.2 (0-2) % Lymph # (Auto) 2.5 (1.2-4.9) X10*3/uL [place] # (Auto) 0.8 (0.1-1.2) X10*3/uL Eos # (Auto) 0.1 (0.0-0.4) X10*3/uL Baso # (Auto) 0.0 (0.0-0.2) X10*3/uL Abs Immat Gran (auto) 0.08 H (0.00-0.03) X10*3/uL Absolute Neuts (auto) 8.1 (2.0-8.3) x10*3/uL Absolute Nucleated RBC 0.000 (0.0-0.012) X10*3/uL Nucleated RBC % (auto) 0.0 (0.0-0.2) /100WBC Sodium 135 (135-145) mmol/L Potassium 3.9 (3.3-5.1) mmol/L Chloride 103 (96-108) mmol/L Carbon Dioxide 22 (22-29) mmol/L Anion Gap 14 (12-20) BUN 10 (9-16) mg/dL Creatinine 0.70 (0.5-1.4) mg/dL Estim Creat Clear Calc 135.5 Estimated GFR > 60 Random Glucose 100 (60-115) mg/dL Calcium 9.7 D (8.4-10.2) mg/dL Total Bilirubin 0.1 (0.0-1.0) mg/dL Direct Bilirubin < 0.2 (0.0-0.5) mg/dL AST 11 (5-31) U/L ALT 12 (0-31) U/L Alkaline Phosphatase 66 (39-117) U/L Total Protein 7.0 (6.5-8.0) g/dL Albumin 3.4 L (3.5-5.0) g/dL Lipase 15 (8-78) U/L Beta HCG, Quant 95329 mIU/mL Urine Color Yellow Urine Appearance Clear Urine pH 6.0 (5.0-9.0) Ur Specific [place] 1.025 (1.005-1.025) Urine Protein 300 (3+) H (Neg-Trace) mg/dL Urine Glucose (UA) Negative (Negative) mg/dL Urine Ketones Trace (Negative) mg/dL Urine Blood Large (3+) H (Negative) Urine Nitrite Negative (Negative) Ur Leukocyte Esterase Negative (Negative) Urine RBC >20 H (0-2) /HPF Urine WBC 6-10 (0-5) /HPF Ur Squamous Epith Cells 3-5 (0-2) /HPF Urine Bacteria Trace (None Seen) Hyaline Casts 0-2 (0-2) /LPF Independent Interpretation I performed an independent interpretation of an: Ultrasound Radiology Impression Discussion of test interpretation with radiology: I have reviewed the radiologist's reading. Radiologist Impression: [place] [id number] Ultrasound Report Signed Patient: Trinity Fernando MR#: [id number] : 1990 Acct:[id number] Age/Sex: 32 / F ADM Date: 11/30/22 Loc: .ED Attending Dr: Ordering Physician: Cary Johnston MD Date of Service: 11/30/22 Procedure(s): US OB limited Accession Number(s): [id number] cc: Dipak Echeverria NP; Cary Johnston MD~ EXAMINATION: Ultrasound OB Limited CLINICAL INFORMATION: Vaginal bleeding? COMPARISON: Previous ultrasound 10/22/2022? TECHNIQUE: Transabdominal Limited OB ultrasound? FINDINGS: There is a single viable intrauterine in breech position. heart rate is 160 bpm. There is an anterior placenta. The placenta appears low lying. The cervix appears long and closed measuring 4.9 cm in length. measurements: BPD 3.9 cm suggesting gestational age 17 weeks 6 days. Head circumference 14.9 cm suggesting gestational age 18 weeks 0 days. Abdominal circumference measuring 12.6 cm suggesting gestational age 18 weeks 2 days. Femur length measuring 2.6 cm suggesting gestational age 18 weeks 0 days. measurements are concordant. From today's measurements, gestational age is estimated at 18 weeks 1 day. From earliest ultrasound September 2022 gestational age is estimated at 17 weeks 6 days. Gestational age is estimated at 17 weeks 4 days by LMP. The left maternal ovary is normal. The right maternal ovary is not seen. There is no fluid seen in the maternal pelvis. US/US OB limited IMPRESSION: Single viable intrauterine . measurements are concordant and match previous exam and LMP.? Low-lying anterior placenta. Critical Care Time Critical Care Time Critical Care Time: Yes Total Critical Care Time: 60 Attestation: I have personally provided critical care time. Time includes review of lab data, radiology results, discussion with consultants, and monitoring for potential decompensation. Intervention performed as documented. Discharge Plan Discharge Clinical Impression: Threatened Patient Disposition: Home, Self-Care Instructions: Threatened Miscarriage (ED) Additional Instructions: If you have any abdominal pain or vaginal bleeding, please go straight to [facility]. Please follow-up with your primary care physician tomorrow. If you have any worsening or new symptoms, please return to the emergency room or call 911 Prescriptions: No Action ibuprofen 600 mg tablet 600 mg PO Q6H PRN (Reason: pain) Qty: 20 0RF lidocaine 4 % adhesive patch,medicated 1 patch topical Q24H PRN (Reason: pain) 10 Days Qty: 10 0RF Rx Instructions: may leave on for up to 12 hrs ibuprofen 800 mg tablet 800 mg PO Q8H PRN (Reason: pain) Qty: 30 0RF cyclobenzaprine 5 mg tablet 5 mg PO TID PRN (Reason: muscle spasm) Qty: 14 0RF cyclobenzaprine 10 mg tablet 10 mg PO TID Qty: 10 0RF naproxen [Naprosyn] 500 mg tablet 500 mg PO BID Qty: 20 0RF
[2022-11-30 02:48] LABS: MANUAL DIFF FLAG NO
[2022-11-30 02:49] LABS: Basophils Percent Auto 0.2 % (0-2); Eosinophils Absolute Auto 0.1 X10*3/uL (0.0-0.4); Eosinophils Percent Auto 0.8 % (0-4); Hematocrit 31.6 % (37.0-47.0); Hemoglobin 10.8 g/dl (12.0-16.0); Imm Gran Abs Auto 0.08 X10*3/uL (0.00-0.03); Imm Gran Pct Auto 0.7 % (0.0-0.4); Lymphocytes Absolute Auto 2.5 X10*3/uL (1.2-4.9); Lymphocytes Percent Auto 21.8 % (20-40); Mean Corpuscular HGB Conc 34.2 g/dl (31.0-35.0); Mean Corpuscular Hemoglobin 29.4 pg (27.0-33.0); Mean Corpuscular Volume 86.1 fL (80.0-98.0); Mean Platelet Volume 10.4 fL (9.4-12.3); Monocytes Absolute Auto 0.8 X10*3/uL (0.1-1.2); Monocytes Percent Auto 6.8 % (2-11); Neutrophils Absolute Auto 8.1 x10*3/uL (2.0-8.3); Neutrophils Percent Auto 69.7 % (45-73); Platelet Count 201 X10*3/uL (160-400); Red Blood Count 3.67 X10*6/uL (4.20-5.50); Red Cell Distribution Width 13.4 % (11.0-16.0); White Blood Count 11.6 X10*3/uL (4.8-10.8)
[2022-11-30 02:50] LABS: Appearance Urine Clear; Color Urine Yellow; Glucose Urine UA Negative (Negative); Leukocyte Esterase Urine Negative (Negative); Nitrite Urine Negative (Negative); Specific Gravity - Urine 1.025 (1.005-1.025); UMIC TRIGGER UACC YES; Urine Blood Large (3+) (Negative); Urine Ketones Trace mg/dL (Negative); Urine Protein 300 (3+) mg/dL (Neg-Trace)
--- NOTE | 2022-11-30 03:01 | PC.NURSE ---
Pt ambulated independently to room from W/R with steady gait. Pt A&Ox4, denies any pain, reports BRB vaginal bleeding, feeling pressure and bloated feeling to ABD. Pt reports being 18 weeks . IV line placed, Blood work collected and sent to lab. Urine sample collected and sent to lab. VSS.
[2022-11-30 03:05] LABS: Bacteria Urine Trace (None Seen); Hyaline Casts Urine 0-2 /LPF (0-2); RBC Urine >20 /HPF (0-2); UACC Culture Trigger YES
[2022-11-30 03:12] LABS: Alanine Aminotransferase 12 U/L (0-31); Albumin Level 3.4 g/dL (3.5-5.0); Alkaline Phosphatase 66 U/L (39-117); Anion Gap 14 (12-20); Aspartate Amino Transferase 11 U/L (5-31); Bilirubin Direct < 0.2 mg/dL (0.0-0.5); Bilirubin Total 0.1 mg/dL (0.0-1.0); Blood Urea Nitrogen 10 mg/dL (9-16); Calcium 9.7 mg/dL (8.4-10.2); Carbon Dioxide 22 mmol/L (22-29); Chloride 103 mmol/L (96-108); Creatinine Clr Calc Pharmacy 135.5; Estimated Glomerular Filt Rate > 60; Glucose Random 100 mg/dL (60-115); HCG Quantitative 13037 mIU/mL; Lipase 15 U/L (8-78); Potassium 3.9 mmol/L (3.3-5.1); Sodium 135 mmol/L (135-145)
--- NOTE | 2022-11-30 03:20 | MHC.EDTECH ---
THIS PCT SET UP AND BICYCLE TAXI DRIVER PROVIDER JESSICA DURING PATIENT PELVIC EXAM .
[2022-11-30 04:16] VITALS: BP 105/58; PULSE 82; RESP 18; TEMP 37.3; O2SAT 95
--- NOTE | 2022-11-30 05:26 | PC.NURSE ---
pt denies N/V, beth jennifer given, tolerating well.
[2022-11-30 05:59] VITALS: BP 106/56; PULSE 81; RESP 16; TEMP 37.1; O2SAT 98
--- NOTE | 2022-11-30 06:45 | MHC.EDTECH ---
call out to [facility] transfer line at [id number] for [address] transfer per DR[address] Johnston
== END 2022-11-30 07:26 | disposition home or self-care (01) ==
PROVIDERS: Emergency Provider Emergency Medicine; PCP Registered Nurse
DX: O20.0 Threatened abortion (principal); O44.52 Low lying placenta with hemorrhage, second trimester; Z3A.18 18 weeks gestation of pregnancy
CPT/HCPCS: 36415; 76815; 80048; 80076; 81001; 83690; 84702; 85025; 87086; 99284

== ENCOUNTER 2023-07-07 11:14 | Outpatient (REF) | payer MEDICAID, SELFPAY ==
[2023-07-07 13:49] LABS: MANUAL DIFF FLAG NO
[2023-07-07 13:50] LABS: Basophils Percent Auto 0.2 % (0-2); Eosinophils Absolute Auto 0.1 X10*3/uL (0.0-0.4); Eosinophils Percent Auto 1.2 % (0-4); Hemoglobin 9.6 g/dl (12.0-16.0); Imm Gran Abs Auto 0.04 X10*3/uL (0.00-0.03); Imm Gran Pct Auto 0.4 % (0.0-0.4); Lymphocytes Absolute Auto 2.2 X10*3/uL (1.2-4.9); Lymphocytes Percent Auto 24.1 % (20-40); Mean Corpuscular Volume 76.6 fL (80.0-98.0); Mean Platelet Volume 10.9 fL (9.4-12.3); Monocytes Absolute Auto 0.5 X10*3/uL (0.1-1.2); Monocytes Percent Auto 5.7 % (2-11); Neutrophils Absolute Auto 6.3 x10*3/uL (2.0-8.3); Neutrophils Percent Auto 68.4 % (45-73); Platelet Count 302 X10*3/uL (160-400); Red Blood Count 4.18 X10*6/uL (4.20-5.50); Red Cell Distribution Width 15.8 % (11.0-16.0); White Blood Count 9.2 X10*3/uL (4.8-10.8)
[2023-07-07 15:03] LABS: Alanine Aminotransferase 21 U/L (0-31); Albumin Level 3.6 g/dL (3.5-5.0); Alkaline Phosphatase 100 U/L (39-117); Anion Gap 10 (12-20); Aspartate Amino Transferase 18 U/L (5-31); Bilirubin Total 0.1 mg/dL (0.0-1.0); Blood Urea Nitrogen 13 mg/dL (9-16); Calcium 9.1 mg/dL (8.4-10.2); Carbon Dioxide 27 mmol/L (22-29); Chloride 106 mmol/L (96-108); Cholesterol 236 mg/dL (<200); Estimated Glomerular Filt Rate > 60; Glucose Random 92 mg/dL (60-115); HDL Cholesterol 35 mg/dL (>40); Potassium 3.8 mmol/L (3.3-5.1); Sodium 139 mmol/L (135-145); Total Protein 7.7 g/dL (6.5-8.0); Triglycerides 468 mg/dL (<150)
[2023-07-07 15:19] LABS: TSH reflex Free T4 61.84 uIU/mL (0.32-4.0)
[2023-07-07 16:20] LABS: Free T4 (Free Thyroxine) 0.52 ng/dL (0.71-1.85)
== END 2023-07-07 11:15 | disposition home or self-care (01) ==
LOC: HO.HHCL 11:14
PROVIDERS: Visit Provider Nurse Practitioner Family
DX: E66.01 Morbid (severe) obesity due to excess calories (principal); E03.9 Hypothyroidism, unspecified; Z68.42 Body mass index [BMI] 45.0-49.9, adult
CPT/HCPCS: 36415; 80053; 80061; 84439; 84443; 85025

== ENCOUNTER 2023-07-08 02:42 | Emergency (ER) | payer MEDICAID, SELFPAY ==
--- NOTE | 2023-07-08 | ECG_ITS ---
Test Reason : CHEST PAIN Blood Pressure : / mmHG Vent. Rate : 071 BPM Atrial Rate : 071 BPM P-R Int : 184 ms QRS Dur : 102 ms QT Int : 396 ms P-R-T Axes : 012 -15 023 degrees QTc Int : 430 ms Normal sinus rhythm Nonspecific T wave abnormality Abnormal ECG When compared with ECG of 05-NOV-2021 10:31, Nonspecific T wave abnormality now evident in Lateral leads Referred By: Generic ED Physician Electronically Signed By:Chandana Sharp
[2023-07-08 02:48] VITALS: BP 130/85; PULSE 80
[2023-07-08 02:49] VITALS: BP 115/67; PULSE 54; RESP 20; TEMP 36.9; O2SAT 96; BMI 51.0
[2023-07-08 03:05] LABS: MANUAL DIFF FLAG NO
[2023-07-08 03:07] LABS: Basophils Percent Auto 0.4 % (0-2); Eosinophils Absolute Auto 0.1 X10*3/uL (0.0-0.4); Eosinophils Percent Auto 1.5 % (0-4); Hematocrit 28.6 % (37.0-47.0); Hemoglobin 8.8 g/dl (12.0-16.0); Imm Gran Abs Auto 0.04 X10*3/uL (0.00-0.03); Imm Gran Pct Auto 0.5 % (0.0-0.4); Lymphocytes Absolute Auto 2.4 X10*3/uL (1.2-4.9); Lymphocytes Percent Auto 29.9 % (20-40); Mean Corpuscular HGB Conc 30.8 g/dl (31.0-35.0); Mean Corpuscular Hemoglobin 23.2 pg (27.0-33.0); Mean Corpuscular Volume 75.3 fL (80.0-98.0); Mean Platelet Volume 9.9 fL (9.4-12.3); Monocytes Absolute Auto 0.4 X10*3/uL (0.1-1.2); Monocytes Percent Auto 5.3 % (2-11); Neutrophils Percent Auto 62.4 % (45-73); Platelet Count 287 X10*3/uL (160-400); Red Cell Distribution Width 15.6 % (11.0-16.0)
[2023-07-08 03:39] LABS: Alanine Aminotransferase 17 U/L (0-31); Albumin Level 3.5 g/dL (3.5-5.0); Alkaline Phosphatase 98 U/L (39-117); Anion Gap 12 (12-20); Aspartate Amino Transferase 20 U/L (5-31); Bilirubin Total 0.1 mg/dL (0.0-1.0); Blood Urea Nitrogen 13 mg/dL (9-16); Calcium 8.9 mg/dL (8.4-10.2); Carbon Dioxide 26 mmol/L (22-29); Chloride 108 mmol/L (96-108); Estimated Glomerular Filt Rate > 60; Glucose Random 109 mg/dL (60-115); Potassium 3.7 mmol/L (3.3-5.1); Sodium 142 mmol/L (135-145); Total Protein 7.4 g/dL (6.5-8.0)
[2023-07-08 03:43] LABS: HCG Quantitative < 2 mIU/mL; Troponin-I High Sensitivity < 2.7 ng/L (<3.5-17.0)
== END 2023-07-08 05:50 | disposition left against medical advice (07) ==
PROVIDERS: Emergency Provider Emergency Medicine
DX: R07.9 Chest pain, unspecified (principal)
CPT/HCPCS: 36415; 80053; 84484; 84702; 85025; 93005; 99283

== ENCOUNTER → 2023-07-08 02:46 | Outpatient (BNV) | payer MEDICAID, SELFPAY | PROVIDERS: Emergency Provider Emergency Medicine; Visit Provider Internal Medicine Cardiovascular Disease | DX: R07.9 Chest pain, unspecified (principal); R94.31 Abnormal electrocardiogram [ECG] [EKG] | CPT/HCPCS: 93010 ==

== ENCOUNTER 2023-07-22 09:51 | Outpatient (REF) | payer MEDICAID, SELFPAY ==
--- NOTE | ~2023-07-22 | US_ITS ---
EXAMINATION: US THYROID CLINICAL INFORMATION: Diffuse goiter, family history of thyroid cancer, patient with hypothyroid. COMPARISON: CT neck 03/01/2022. TECHNIQUE: Linear transducer irving-scale and color Doppler examination with attention to the region of the thyroid. FINDINGS: SIZE: Measurements of the thyroid lobes and nodules are given in sagittal, anteroposterior and transverse dimensions respectively. Right Thyroid Lobe: 6.0 x 3.0 x 2.6 cm, volume 24.1 mL. Parenchyma: The gland echotexture is heterogeneous. Thyroid vascularity is increased. Left Thyroid Lobe: 5.5 x 2.5 x 2.5 cm, volume 17.8 mL. Parenchyma: The gland echotexture is heterogeneous. Thyroid vascularity is increased. Isthmus: 1.7 cm in maximum AP dimension. Estimated total number of nodules greater than or equal to 1 cm: 1. Certified Professional Controller nodules are described as follows: 1. Location: Right mid. Size: 0.6 x 0.9 x 0.6 cm, volume 0.2 mL. Nodule characteristics: Composition: Solid (2). Echogenicity: Hyperechoic (1). Shape: Taller than wide (3). Margins: Smooth (0). Echogenic Foci: None (0). ACR TI-RADS total points: 6 ACR TI-RADS category: 4 2. Location: Right inferior isthmus. Size: 0.3 x 0.4 x 0.3 cm, volume 0.02 mL. Nodule characteristics: Composition: Solid (2). Echogenicity: Hyperechoic (1). Shape: Taller than wide (3). Margins: Smooth (0). Echogenic Foci: None (0). ACR TI-RADS total points: 6 ACR TI-RADS category: 4 3. Location: Inferior isthmus. Size: 1.4 x 1.1 x 1.2 cm, volume 0.9 mL. On the prior CT scan, I believe this can be seen, and measures 2.5 x 1.6 x 3.0 cm. However, comparison between these 2 modalities is not at all accurate. Nodule characteristics: Composition: Solid (2). Echogenicity: Hyperechoic (1). Shape: Not taller than wide (0). Margins: Smooth (0). Echogenic Foci: None (0). ACR TI-RADS total points: 3 ACR TI-RADS category: 3 NODES: No lymphadenopathy is seen in the tissue surrounding the thyroid gland. US/US thyroid IMPRESSION: Enlarged heterogeneous hypervascular thyroid. The largest discrete mass is 1.4 cm and TR 3. Based upon ACR TI-RADS recommendations, no follow-up is necessary as this does not meet the 1.5 cm threshold for follow up. ACR TI-RADS RECOMMENDATION REFERENCE: Ultrasound-guided fine-needle aspiration, follow up ultrasound, no further follow up. * TR1 (0 point) and TR2 (2 points): No FNA or follow up. * TR3 (3 points): FNA if more than or equal to 2.5 cm in maximum dimension, follow up ultrasound in 1, 3 and 5 years if 1.5 to 2.4 cm in maximum dimension. * TR4 (4-6 points): FNA if more than or equal to 1.5 cm in maximum dimension, follow up ultrasound in 1, 2, 3 and 5 years if 1 to 1.4 cm in maximum dimension. * TR5 (more than or equal to 7 points): FNA if more than or equal to 1 cm in maximum dimension, follow up ultrasound every year for 5 years if 0.5 to 0.9 cm in maximum dimension. * TR3, TR4 or TR5 nodules that are below the size threshold for follow up receive no follow up.
== END 2023-07-22 09:52 | disposition home or self-care (01) ==
LOC: HO.US 09:51
PROVIDERS: Visit Provider Nurse Practitioner Family
DX: E04.9 Nontoxic goiter, unspecified (principal)
CPT/HCPCS: 76536

== ENCOUNTER 2023-11-14 00:55 | Emergency (ER) | payer MEDICAID, SELFPAY ==
--- NOTE | 2023-11-14 01:02 | ECG_ITS ---
Test Reason : CHEST PAIN Blood Pressure : / mmHG Vent. Rate : 083 BPM Atrial Rate : 083 BPM P-R Int : 172 ms QRS Dur : 112 ms QT Int : 400 ms P-R-T Axes : 014 -16 004 degrees QTc Int : 470 ms Normal sinus rhythm Minimal voltage criteria for LVH, may be normal variant ( R in aVL ) Borderline ECG When compared with ECG of 08-JUL-2023 02:46, Nonspecific T wave abnormality no longer evident in Lateral leads Referred By: Generic ED Physician Electronically Signed By:GORDON THAKKAR
[2023-11-14 01:03] VITALS: BP 114/60; BP 129/76; PULSE 90; PULSE 95; RESP 16; TEMP 36.9; O2SAT 98; O2SAT 99; BMI 45.3
--- NOTE | 2023-11-14 01:14 | ED.CHESTPAIN ---
HPI - Chest Pain General Chief Complaint: Chest Pain Stated Complaint: CHEST PAIN Time Seen by Provider: 11/14/23 01:06 Source: patient Mode of arrival: ambulatory Limitations: no limitations History of Present Illness ED Provider: Dr. Cary Johnston HPI narrative: Patient comes to emergency room complaining of intermittent chest pain. Patient states that for about a year she has been having on and off chest pains. Patient states that earlier today she had sharp pain in at this time is nearly resolved. Patient denies shortness of breath. Related Data Previous Rx's ?Medication ?Instructions ?Recorded cyclobenzaprine 5 mg tablet 5 mg PO TID PRN muscle spasm #14 04/14/20 tabs ibuprofen 800 mg tablet 800 mg PO Q8H PRN pain #30 tabs 04/14/20 lidocaine 4 % topical patch 1 patch topical Q24H PRN pain 10 04/14/20 days #10 ea ibuprofen 600 mg tablet 600 mg PO Q6H PRN pain #20 tabs 06/05/20 cyclobenzaprine 10 mg tablet 10 mg PO TID #10 tabs 09/25/21 naproxen 500 mg tablet (Naprosyn) 500 mg PO BID #20 tabs 09/25/21 Allergies Allergy/AdvReac Type Severity Reaction Status Date / Time aspirin [ASPIRIN] Allergy Intermediate SWELLING Verified 11/14/23 01:05 Review of Systems Review of Systems: Constitutional : No Weight loss, No Fever, No Chills, No Night Sweats, No Fatigue, No Malaise ENT/Mouth : No Hearing loss, No Ear Pain, No Nasal Congestion, No Sinus Pain, No Hoarseness, No sore throat, No Rhinorrhea, No Swallowing Difficulty Eyes: No Eye Pain, No Swelling, No Redness, No Foreign Body, No Discharge, No Vision Changes Cardiovascular : Complaining of intermittent chest pain, No SOB, No Dyspnea on Exertion, No Orthopnea, No Edema, No Palpitations Respiratory : No Cough, No Sputum, No Wheezing, No Smoke Exposure, No Dyspnea Gastrointestinal : No Nausea, No Vomiting, No Diarrhea, No Constipation, No abdominal Pain, No Hematochezia, No Melena Genitourinary : no irregular bleeding, No Dysuria, No Urinary Frequency, No Hematuria, No Urinary Incontinence, No Urgency, No Flank Pain, No Urinary Flow Changes, No Hesitancy Musculoskeletal : No joint pain, No Myalgias, No Joint Swelling Skin : No Skin Lesions, No rash Neuro : No Weakness, No Numbness, No Paresthesias, No Loss of Consciousness, No Dizziness, No Headache Psych : No Anxiety/Panic, No Depression, No SI/HI/AH/VH, No Social Issues, Heme/Lymph: No Bruising, No Bleeding,No Lymphadenopathy Endocrine : No Polyuria, No Polydipsia, No Temperature Intolerance [facility] Past Medical History Medical History Bipolar 1 disorder Depression Carpal tunnel syndrome Scoliosis Social History Social History Alcohol intake: never Advance Directives: No Advance Directives Information Provided: No Do you have a plan to hurt others: No Plan Physical Exam Vital Signs: Vital Signs: Last Vital Signs Temp 98.7 F 11/14/23 02:00 Pulse 86 11/14/23 02:00 Resp 21 H 11/14/23 02:00 BP 109/57 L 11/14/23 02:00 Pulse Ox 98 11/14/23 02:00 O2 Del Method Room Air 11/14/23 02:00 BMI result Body Mass Index 45.3 Const: Other: Appearance: Alert. Oriented X3. No acute distress. Eyes: Pupils equal, round and reactive to light. ENT: Pharynx normal. Neck: Normal inspection. Neck supple. No lymph nodes noted. No crepitus CVS: Normal heart rate and rhythm. Pulses normal. Normal S1 and S2 Respiratory: No respiratory distress. Breath sounds normal. No Wheezing. No rales Abdomen: Soft and nontender. No rigidity. No distention. Skin: Skin warm and dry. Normal skin color. Normal skin turgor. Extremities: No lower extremity edema. No Lacerations. No Rash Neuro: Oriented X 3. No motor deficit. No sensory deficit. Moving all extremities. No slurred speech. CN 2 through 12 grossly intact Psych: calm, cooperative, normal affect Medical Decision Making Medical Decision Making MDM Narrative: -my interpretation of EKG: Normal sinus rhythm, heart rate 83, no ST segment depression or elevation, nonspecific T-wave inversion in lead 3, QTC 470 My interpretation of labs: Patient's hemoglobin is 8.9, previously 8.8. Unlikely to be the source of patient's symptoms. Anemia was discussed with the patient. It has gradually been dropping since November. Patient delivered her baby in March of 2023. Troponin negative -patient denies any chest pain at this time, no shortness of breath, not tachycardic, no lower extremity edema or calf pain -patient states that the time she feels that her heart is racing. Here in the emergency room we did not detect any arrhythmias. Patient instructed to follow-up with the primary care physician, patient may benefit from a Holter monitor evaluation. At this time, patient is asymptomatic, vitals stable Differential Diagnosis Differential Diagnoses: The differential diagnosis associated with the presentation includes (Nonsustained SVT, cardiac arrhythmia, anxiety) Admission/Observation Consideration of admission/observation: Escalation of care including admission/observation considered (Given patient's symptoms, observation was considered.) Lab Data MDM Lab Attestation statement: I reviewed the patient's lab results. 11/14/23 01:20 11/14/23 01:20 Labs: Lab Results 11/14/23 Range/Units 01:20 WBC 9.0 (4.8-10.8) X10*3/uL RBC 4.04 L (4.20-5.50) X10*6/uL Hgb 8.9 L (12.0-16.0) g/dl Hct 28.5 L (37.0-47.0) % MCV 70.5 L (80.0-98.0) fL MCH 22.0 L (27.0-33.0) pg MCHC 31.2 (31.0-35.0) g/dl RDW 17.6 H (11.0-16.0) % Plt Count 260 (160-400) X10*3/uL MPV 10.4 (9.4-12.3) fL Immature Gran % (Auto) 0.7 H (0.0-0.4) % Neut % (Auto) 63.3 (45-73) % Lymph % (Auto) 29.2 (20-40) % [place] % (Auto) 4.2 (2-11) % Eos % (Auto) 2.3 (0-4) % Baso % (Auto) 0.3 (0-2) % Lymph # (Auto) 2.6 (1.2-4.9) X10*3/uL [place] # (Auto) 0.4 (0.1-1.2) X10*3/uL Eos # (Auto) 0.2 (0.0-0.4) X10*3/uL Baso # (Auto) 0.0 (0.0-0.2) X10*3/uL Abs Immat Gran (auto) 0.06 H (0.00-0.03) X10*3/uL Absolute Neuts (auto) 5.7 (2.0-8.3) x10*3/uL Absolute Nucleated RBC 0.000 (0.0-0.012) X10*3/uL Nucleated RBC % (auto) 0.0 (0.0-0.2) /100WBC Sodium 140 (135-145) mmol/L Potassium 3.5 (3.3-5.1) mmol/L Chloride 108 (96-108) mmol/L Carbon Dioxide 20 L (22-29) mmol/L Anion Gap 16 (12-20) BUN 14 (9-16) mg/dL Creatinine 0.86 (0.5-1.4) mg/dL Estim Creat Clear Calc 105.1 Estimated GFR > 60 Random Glucose 151 H (60-115) mg/dL Calcium 9.0 (8.4-10.2) mg/dL Troponin I High Sens 7.0 D (<3.5-17.0) ng/L Beta HCG, Quant < 2 mIU/mL Independent Interpretation I performed an independent interpretation of an: EKG Critical Care Time Critical Care Time Critical Care Time: Yes Total Critical Care Time: 35 Attestation: I have personally provided critical care time. Time includes review of lab data, radiology results, discussion with consultants, and monitoring for potential decompensation. Intervention performed as documented. Discharge Plan Discharge Clinical Impression: Atypical chest pain Patient Disposition: Home, Self-Care Instructions: Chest Pain (ED) Additional Instructions: Please follow-up with your primary care physician tomorrow. If you have any worsening or new symptoms, please return to the emergency room or call 911 Prescriptions: No Action ibuprofen 600 mg tablet 600 mg PO Q6H PRN (Reason: pain) Qty: 20 0RF lidocaine 4 % adhesive patch,medicated 1 patch topical Q24H PRN (Reason: pain) 10 Days Qty: 10 0RF Rx Instructions: may leave on for up to 12 hrs ibuprofen 800 mg tablet 800 mg PO Q8H PRN (Reason: pain) Qty: 30 0RF cyclobenzaprine 5 mg tablet 5 mg PO TID PRN (Reason: muscle spasm) Qty: 14 0RF cyclobenzaprine 10 mg tablet 10 mg PO TID Qty: 10 0RF naproxen [Naprosyn] 500 mg tablet 500 mg PO BID Qty: 20 0RF Print Language: Irish
[2023-11-14 01:24] LABS: MANUAL DIFF FLAG NO
[2023-11-14 01:28] LABS: Basophils Percent Auto 0.3 % (0-2); Eosinophils Absolute Auto 0.2 X10*3/uL (0.0-0.4); Eosinophils Percent Auto 2.3 % (0-4); Hematocrit 28.5 % (37.0-47.0); Hemoglobin 8.9 g/dl (12.0-16.0); Imm Gran Abs Auto 0.06 X10*3/uL (0.00-0.03); Imm Gran Pct Auto 0.7 % (0.0-0.4); Lymphocytes Absolute Auto 2.6 X10*3/uL (1.2-4.9); Lymphocytes Percent Auto 29.2 % (20-40); Mean Corpuscular HGB Conc 31.2 g/dl (31.0-35.0); Mean Corpuscular Volume 70.5 fL (80.0-98.0); Mean Platelet Volume 10.4 fL (9.4-12.3); Monocytes Absolute Auto 0.4 X10*3/uL (0.1-1.2); Monocytes Percent Auto 4.2 % (2-11); Neutrophils Absolute Auto 5.7 x10*3/uL (2.0-8.3); Neutrophils Percent Auto 63.3 % (45-73); Platelet Count 260 X10*3/uL (160-400); Red Blood Count 4.04 X10*6/uL (4.20-5.50); Red Cell Distribution Width 17.6 % (11.0-16.0)
[2023-11-14 01:42] LABS: Anion Gap 16 (12-20); Blood Urea Nitrogen 14 mg/dL (9-16); Carbon Dioxide 20 mmol/L (22-29); Chloride 108 mmol/L (96-108); Creatinine Clr Calc Pharmacy 105.1; Estimated Glomerular Filt Rate > 60; Glucose Random 151 mg/dL (60-115); Potassium 3.5 mmol/L (3.3-5.1); Sodium 140 mmol/L (135-145)
[2023-11-14 01:52] LABS: HCG Quantitative < 2 mIU/mL
[2023-11-14 02:00] VITALS: BP 109/57; PULSE 86; RESP 21; TEMP 37.1; O2SAT 98
[2023-11-14 02:42] VITALS: BP 109/57; PULSE 86; RESP 21; TEMP 37.1; O2SAT 98
== END 2023-11-14 02:43 | disposition home or self-care (01) ==
PROVIDERS: Emergency Provider Emergency Medicine; PCP Nurse Practitioner Family
DX: R07.89 Other chest pain (principal)
CPT/HCPCS: 36415; 80048; 84484; 84702; 85025; 93005; 99284

== ENCOUNTER 2023-12-19 19:47 | Emergency (ER) | payer MEDICAID, SELFPAY ==
--- NOTE | 2023-12-19 19:53 | ECG_ITS ---
Test Reason : CHEST PAIN Blood Pressure : / mmHG Vent. Rate : 076 BPM Atrial Rate : 076 BPM P-R Int : 174 ms QRS Dur : 106 ms QT Int : 420 ms P-R-T Axes : 025 000 014 degrees QTc Int : 472 ms Normal sinus rhythm Minimal voltage criteria for LVH, may be normal variant ( R in aVL ) Borderline ECG When compared with ECG of 14-NOV-2023 00:59, No significant change was found Referred By: Generic ED Physician Electronically Signed By:GORDON THAKKAR
[2023-12-19 19:54] VITALS: BP 130/80; PULSE 60; O2SAT 98
[2023-12-19 20:10] VITALS: BP 116/71; PULSE 83; RESP 18; TEMP 36.6; O2SAT 98; BMI 47.2
[2023-12-19 20:12] LABS: MANUAL DIFF FLAG NO
[2023-12-19 20:14] LABS: Basophils Percent Auto 0.3 % (0-2); Eosinophils Absolute Auto 0.1 X10*3/uL (0.0-0.4); Eosinophils Percent Auto 1.6 % (0-4); Hematocrit 30.1 % (37.0-47.0); Hemoglobin 9.1 g/dl (12.0-16.0); Imm Gran Abs Auto 0.03 X10*3/uL (0.00-0.03); Imm Gran Pct Auto 0.3 % (0.0-0.4); Lymphocytes Absolute Auto 2.4 X10*3/uL (1.2-4.9); Lymphocytes Percent Auto 27.1 % (20-40); Mean Corpuscular HGB Conc 30.2 g/dl (31.0-35.0); Mean Corpuscular Hemoglobin 21.2 pg (27.0-33.0); Mean Corpuscular Volume 70.2 fL (80.0-98.0); Mean Platelet Volume 10.4 fL (9.4-12.3); Monocytes Absolute Auto 0.5 X10*3/uL (0.1-1.2); Monocytes Percent Auto 5.6 % (2-11); Neutrophils Absolute Auto 5.8 x10*3/uL (2.0-8.3); Neutrophils Percent Auto 65.1 % (45-73); Platelet Count 328 X10*3/uL (160-400); Red Blood Count 4.29 X10*6/uL (4.20-5.50); Red Cell Distribution Width 17.6 % (11.0-16.0); White Blood Count 8.9 X10*3/uL (4.8-10.8)
--- NOTE | 2023-12-19 20:14 | MHC.EDTECH ---
Patient biba from home ,ekg taken in Triage and was read by Provider ,blood drawn and sent to lab .
--- NOTE | 2023-12-19 20:15 | ED.CHESTPAIN ---
HPI - Chest Pain General Chief Complaint: Chest Pain Stated Complaint: Chest pain x30 mins Time Seen by Provider: 12/20/23 00:49 Source: patient, RN notes reviewed and old records reviewed Mode of arrival: ambulatory Limitations: no limitations History of Present Illness ED Provider: Shahbaz NEWELL narrative: 33-year-old female who denies any past medical history presents for evaluation of chest pain. Patient reports that she has had intermittent episodes of chest pain on and off for the last 3-4 months. This is her 2nd visit here for similar complaints of chest pain. She reports he is also discussed with her PCP. The patient states that she has never seen Cardiology She reports that she is 9 months Patient states that today about 30 minutes prior to arrival she experienced the sudden onset of left-sided chest pain that was described as ?pressure. ? She feels as though she gets ?tingling in my hands and toes. ? She feels short of breath when she experiences these symptoms Patient states that she currently feels as though ?1000 lb in my chest. ? She is not on control, denies any recent travel Related Data Previous Rx's ?Medication ?Instructions ?Recorded cyclobenzaprine 5 mg tablet 5 mg PO TID PRN muscle spasm #14 04/14/20 tabs ibuprofen 800 mg tablet 800 mg PO Q8H PRN pain #30 tabs 04/14/20 lidocaine 4 % topical patch 1 patch topical Q24H PRN pain 10 04/14/20 days #10 ea ibuprofen 600 mg tablet 600 mg PO Q6H PRN pain #20 tabs 06/05/20 cyclobenzaprine 10 mg tablet 10 mg PO TID #10 tabs 09/25/21 naproxen 500 mg tablet (Naprosyn) 500 mg PO BID #20 tabs 09/25/21 Allergies Allergy/AdvReac Type Severity Reaction Status Date / Time aspirin [ASPIRIN] Allergy Intermediate SWELLING Verified 12/19/23 20:12 Review of Systems Constitutional: Constitutional: Denies body ache(s), Denies chills, Denies fever(s) and Denies frequent falls Eyes: Eyes: Denies blurry vision ENT: Denies vertigo and Denies dizziness Cardiovascular: Cardiovascular: Reports chest pain, Reports chest pain at rest, Reports chest pain with activity and Denies dyspnea Respiratory: Respiratory: Denies cough and Denies dyspnea Gastrointestinal: Gastrointestinal: Denies abdominal pain, Denies nausea and Denies vomiting Musculoskeletal: Musculoskeletal: Denies back pain Integumentary/Breasts: Skin/Breast: Denies rash Neurologic: Denies vertigo, Denies dizziness and Denies frequent falls Psychiatric: Psychiatric: Reports anxiety PMFSH Past Medical History Medical History Bipolar 1 disorder Depression Carpal tunnel syndrome Scoliosis Social History Social History Alcohol intake: never Advance Directives: No Advance Directives Information Provided: Yes Do you have a plan to hurt others: No Plan Physical Exam Vital Signs: Vital Signs: Last Vital Signs Temp 97.9 F 12/19/23 20:10 Pulse 83 12/19/23 20:10 Resp 18 12/19/23 20:10 BP 116/71 12/19/23 20:10 Pulse Ox 98 12/19/23 20:10 O2 Del Method Room Air 12/19/23 20:10 BMI result Body Mass Index 47.2 Const: General: healthy appearing, comfortable, no acute distress, alert and awake Nutritional Appearance: well nourished Orientation/consciousness: patient oriented x3 HEENT: Head: Yes normocephalic and Yes atraumatic Eyes: Eyelids: Yes eyelids normal Conjunctivae: conjunctivae normal Sclerae: sclerae normal Corneas: corneas normal Pupils: Equal, round and reactive pupils present EOM: EOMs intact bilaterally Neck: Neck: Yes full ROM Resp: Effort & Inspection: normal respiratory effort, able to speak in complete sentences, no audible wheezes and not labored Auscultation: clear to auscultation bilaterally Cardio: Rate: regular rate Rhythm: regular rhythm GI: Inspection: No distended Palpation (GI): Soft to palpation, not firm, nontender, no guarding and not rigid Skin: General skin exam: elasticity normal Neuro: General: patient oriented x3 Cranial nerves: Yes Equal, round and reactive pupils present and Yes Bilaterally intact EOM present Cognition (Neuro): normal cognition Course Course Course Narrative: This is a Rapid Medical Examination (RME) performed by Eric Suarez PA-C in triage. Full HPI, ROS, assessment and treatment plan per primary provider in the Main ED. 33 yo female here for eval of intermittentchest pain x3-4 months. has f/u with pcp for same w/ unremarkable work up. admits to tingling, numbness in all extremities. Pain and left wrist is stabbing associated shortness of breath. Denies nausea or vomiting. + vitals stable. Well-appearing. Not diaphoretic Plan: labs, ekg Medical Decision Making Medical Decision Making [facility] Narrative: 33-year-old female presents for evaluation of chest pain. She reports he has been on and off for several months. Her EKG is normal sinus rhythm with a rate of 76 beats minute. No evidence of blocks, no evidence of acute ischemia. This is her 2nd visit in just over a month for similar complaints. I suspect there is a strong anxiety component to her chest pain. The patient is 9 months , I did order a D-dimer although the patient is not hypoxic or tachycardic at this time. Differential Diagnosis Differential Diagnoses: The differential diagnosis associated with the presentation includes Chest pain ACS GERD Anxiety PE less likely Atypical chest pain Lab Data [facility] Lab Attestation statement: I reviewed the patient's lab results. There is no leukocytosis. The patient does have a microcytic anemia consistent with her baseline from this year. Normal platelet count. No left shift. Chemistries have no significant abnormalities, troponin was 6.2, repeat troponin was flat at 7.8. 12/19/23 20:07 12/19/23 20:07 Labs: Lab Results 12/19/23 12/19/23 12/20/23 Range/Units 20:07 23:27 01:24 WBC 8.9 (4.8-10.8) X10*3/uL RBC 4.29 (4.20-5.50) X10*6/uL Hgb 9.1 L (12.0-16.0) g/dl Hct 30.1 L (37.0-47.0) % MCV 70.2 L (80.0-98.0) fL MCH 21.2 L (27.0-33.0) pg MCHC 30.2 L (31.0-35.0) g/dl RDW 17.6 H (11.0-16.0) % Plt Count 328 D (160-400) X10*3/uL MPV 10.4 (9.4-12.3) fL Immature Gran % (Auto) 0.3 (0.0-0.4) % Neut % (Auto) 65.1 (45-73) % Lymph % (Auto) 27.1 (20-40) % [place] % (Auto) 5.6 (2-11) % Eos % (Auto) 1.6 (0-4) % Baso % (Auto) 0.3 (0-2) % Lymph # (Auto) 2.4 (1.2-4.9) X10*3/uL [place] # (Auto) 0.5 (0.1-1.2) X10*3/uL Eos # (Auto) 0.1 (0.0-0.4) X10*3/uL Baso # (Auto) 0.0 (0.0-0.2) X10*3/uL Abs Immat Gran (auto) 0.03 (0.00-0.03) X10*3/uL Absolute Neuts (auto) 5.8 (2.0-8.3) x10*3/uL Absolute Nucleated RBC 0.000 (0.0-0.012) X10*3/uL Nucleated RBC % (auto) 0.0 (0.0-0.2) /100WBC D-Dimer High Sensitivty < 150 NG/ML Sodium 140 (135-145) mmol/L Potassium 3.6 (3.3-5.1) mmol/L Chloride 107 (96-108) mmol/L Carbon Dioxide 23 (22-29) mmol/L Anion Gap 14 (12-20) BUN 12 (9-16) mg/dL Creatinine 0.75 (0.5-1.4) mg/dL Estim Creat Clear Calc 123.5 Estimated GFR > 60 Random Glucose 98 (60-115) mg/dL Calcium 9.0 (8.4-10.2) mg/dL Troponin I High Sens 6.2 7.8 (<3.5-17.0) ng/L Discharge Plan Discharge Clinical Impression: Atypical chest pain Patient Disposition: Home, Self-Care Instructions: Chest Pain (ED) Additional Instructions: Your workup in the ER today was reassuring. This includes your blood work and repeat blood work and chest x-ray. It is very low risk that you have a blood clot in your lungs based on your blood work. You may follow-up with cardiology for further management and evaluation There may be some component of anxiety causing your chest pain Prescriptions: No Action ibuprofen 600 mg tablet 600 mg PO Q6H PRN (Reason: pain) Qty: 20 0RF lidocaine 4 % adhesive patch,medicated 1 patch topical Q24H PRN (Reason: pain) 10 Days Qty: 10 0RF Rx Instructions: may leave on for up to 12 hrs ibuprofen 800 mg tablet 800 mg PO Q8H PRN (Reason: pain) Qty: 30 0RF cyclobenzaprine 5 mg tablet 5 mg PO TID PRN (Reason: muscle spasm) Qty: 14 0RF cyclobenzaprine 10 mg tablet 10 mg PO TID Qty: 10 0RF naproxen [Naprosyn] 500 mg tablet 500 mg PO BID Qty: 20 0RF Referrals: Red Arteaga MD [Physician] - (chest pain) Print Language: Micronesian
[2023-12-19 20:27] LABS: Anion Gap 14 (12-20); Blood Urea Nitrogen 12 mg/dL (9-16); Carbon Dioxide 23 mmol/L (22-29); Chloride 107 mmol/L (96-108); Creatinine Clr Calc Pharmacy 123.5; Estimated Glomerular Filt Rate > 60; Glucose Random 98 mg/dL (60-115); Potassium 3.6 mmol/L (3.3-5.1); Sodium 140 mmol/L (135-145)
[2023-12-19 20:35] LABS: Troponin-I High Sensitivity 6.2 ng/L (<3.5-17.0)
[2023-12-19 23:56] LABS: Troponin-I High Sensitivity 7.8 ng/L (<3.5-17.0)
[2023-12-20 01:44] LABS: D Dimer High Sensitivity < 150 NG/ML
[2023-12-20 01:56] VITALS: BP 112/56; PULSE 71; RESP 18; TEMP 36.9; O2SAT 95
[2023-12-20 02:22] VITALS: BP 112/56; PULSE 71; RESP 18; TEMP 36.9; O2SAT 95
== END 2023-12-20 02:23 | disposition home or self-care (01) ==
PROVIDERS: Physician Assistant; Emergency Provider Emergency Medicine
DX: R07.89 Other chest pain (principal); D64.9 Anemia, unspecified; Z79.899 Other long term (current) drug therapy
CPT/HCPCS: 36415; 80048; 84484; 85025; 85379; 93005; 99283; 99284; 99285

== ENCOUNTER 2024-01-01 15:55 | Emergency (ER) | payer MEDICAID, SELFPAY ==
--- NOTE | ~2024-01-01 | US_ITS ---
EXAMINATION: US TRIPLEX LOWER EXTREMITY, RIGHT CLINICAL INFORMATION: Cough pain COMPARISON: None available. TECHNIQUE: Color-flow triplex imaging with spectral analysis and compression Doppler were performed on the right lower extremity. FINDINGS: Respiratory variation, normal compression and augmented flow are noted throughout the right lower extremity. The visualized common femoral vein, superficial femoral vein, profunda femoral vein, popliteal vein and midcalf peroneal and posterior tibial venous segments show no evidence of deep venous thrombosis. There is no White's cyst. US/US venous duplex LE RT IMPRESSION: No evidence of deep venous thrombosis involving the right lower extremity. Electronically signed by: Cornelius Mcguire MD 01/01/2024 06:19 PM EDT RP
--- NOTE | ~2024-01-01 | XR_ITS ---
EXAMINATION: Right foot and right ankle CLINICAL INDICATION: Pain. COMPARISON: Left ankle 321 TECHNIQUE: 3 views right foot and 4 views right ankle. FINDINGS: Right foot: There is no visible acute fracture, dislocation or subluxation. There is normal joint alignment. The soft tissues are normal. Right ankle: The ankle mortise and subtalar joints are normal. No visible acute fracture, dislocation or subluxation seen. There is moderate lateral and mild medial malleolar soft tissue swelling. XR/XR ankle RT min 3V IMPRESSION: 1. Moderate lateral and mild medial malleolar soft tissue swelling. No visible acute fracture or dislocation seen. 2. Unremarkable right foot exam. Electronically signed by: Cornelius Mcguire MD 01/01/2024 05:39 PM EDT
--- NOTE | ~2024-01-01 | XR_ITS ---
EXAMINATION: Right foot and right ankle CLINICAL INDICATION: Pain. COMPARISON: Left ankle 321 TECHNIQUE: 3 views right foot and 4 views right ankle. FINDINGS: Right foot: There is no visible acute fracture, dislocation or subluxation. There is normal joint alignment. The soft tissues are normal. Right ankle: The ankle mortise and subtalar joints are normal. No visible acute fracture, dislocation or subluxation seen. There is moderate lateral and mild medial malleolar soft tissue swelling. XR/XR foot RT min 3V IMPRESSION: 1. Moderate lateral and mild medial malleolar soft tissue swelling. No visible acute fracture or dislocation seen. 2. Unremarkable right foot exam. Electronically signed by: Cornelius Mcguire MD 01/01/2024 05:39 PM EDT
[2024-01-01 16:47] VITALS: BP 119/63; PULSE 91; RESP 18; TEMP 37; O2SAT 97; BMI 47.2
--- NOTE | 2024-01-01 16:51 | ED_ITS ---
HPI - Extremity Problem General Chief complaint: Extremity Injury, Lower Stated complaint: right foot pain, no inj Time Seen by Provider: 01/01/24 18:45 Source: patient Mode of arrival: ambulatory Limitations: no limitations History of Present Illness ED Provider: juwan HPI Narrative: Patient is a 33-year-old female presenting to the emergency department with complaint of right posterior ankle pain intermittent swelling for the past month. Has used ibuprofen, lidocaine patches with little relief. States pain waxes and wanes. At times is severe. States she is still able to weightbear and ambulate. Denies any weakness, numbness, tingling. Complaint: extremity pain Onset (ago): month(s) Pain Consistency: colicky Location: right and lower extremity Quality: aching Radiation: none Exacerbating factors: weight bearing, walking and exertion Associated symptoms: denies other symptoms Related Data Previous Rx's ?Medication ?Instructions ?Recorded cyclobenzaprine 5 mg tablet 5 mg PO TID PRN muscle spasm #14 04/14/20 tabs ibuprofen 800 mg tablet 800 mg PO Q8H PRN pain #30 tabs 04/14/20 lidocaine 4 % topical patch 1 patch topical Q24H PRN pain 10 04/14/20 days #10 ea ibuprofen 600 mg tablet 600 mg PO Q6H PRN pain #20 tabs 06/05/20 cyclobenzaprine 10 mg tablet 10 mg PO TID #10 tabs 09/25/21 naproxen 500 mg tablet (Naprosyn) 500 mg PO BID #20 tabs 09/25/21 naproxen 500 mg tablet 500 mg PO BID #14 tabs 01/01/24 Allergies Allergy/AdvReac Type Severity Reaction Status Date / Time aspirin [ASPIRIN] Allergy Intermediate SWELLING Verified 01/01/24 16:48 Review of Systems Review of Systems: as per hpi Yes all other systems are reviewed and are negative Constitutional: Constitutional: Reports as per HPI [facility] Past Medical History Medical History Bipolar 1 disorder Depression Carpal tunnel syndrome Scoliosis Social History Social History Alcohol intake: never Advance Directives: No Advance Directives Information Provided: No Do you have a plan to hurt others: No Plan Physical Exam Vital Signs: Vital Signs: Last Vital Signs Temp 98.6 F 01/01/24 16:47 Pulse 91 01/01/24 16:47 Resp 18 01/01/24 16:47 BP 119/63 01/01/24 16:47 Pulse Ox 97 01/01/24 16:47 O2 Del Method Room Air 01/01/24 16:47 BMI result Body Mass Index 47.2 Vital signs have been reviewed and appear to be correct. Blood pressure normal. Heart rate normal. Respiratory rate normal. Temperature normal. Oxygen saturation normal. Const: General: cooperative, healthy appearing and no acute distress Orientation/consciousness: oriented to person, oriented to place, oriented to time and patient oriented x3 Limitations: no limitations HEENT: Head: Yes normocephalic and Yes atraumatic Ears: external ears normal General nose exam: Normal external nose present Face and sinus: Yes face symmetric Mouth: oropharynx normal and moist mucous membranes Throat: Yes uvula midline Eyes: Pupils: Equal, round and reactive pupils present Neck: Neck: Yes normal visual inspection and Yes supple Resp: Effort & Inspection: normal respiratory effort and able to speak in complete sentences Auscultation: clear to auscultation bilaterally Cardio: Rate: regular rate Rhythm: regular rhythm Heart sounds: S1 normal heart sound present and S2 normal heart sound present GI: Palpation (GI): Soft to palpation and nontender Auscultation: normoactive bowel sounds : General: Yes no CVA tenderness Back/Spine/Pelvis: Back: no CVA tenderness Skin: General skin exam: elasticity normal and turgor normal Neuro: General: oriented to person, oriented to place, oriented to time, patient oriented x3, moves all extremities, no focal motor deficits and CN's II- XI intact bilaterally Cranial nerves: Yes Equal, round and reactive pupils present Cognition (Neuro): normal cognition Extrem: General: Yes full ROM, Yes no pedal edema and Yes no calf tenderness Right lower extremity: ankle Details: normal to inspection, tenderness Location: of the achilles tendon, normal ROM and achilles tendon exam abnormal Details: tenderness to palpation of achilles tendon; no step-off noted and Hall Test normal; no swelling, no ecchymosis and no crepitus and foot Details: normal capillary refill, normal to inspection, toes with normal ROM and vascular exam Details: dorsalis pedis pulse present and posterior tibial pulse present; no tenderness Psych: Mental Status: mental status grossly normal Affect: normal affect Thought process: Normal thought process present Course Course Course Narrative: This is a Rapid Medical Examination (RME) performed by Katlin Jolly PA-C in triage. Full HPI, ROS, assessment and treatment plan per primary provider in the Main ED. 33 yo female presenting w/ right foot, achilles and calf pain for the last 1 month. no injury or trauma. reports swelling and severe pain unable to ambulate without limping. Plan: xr foot, ankle, US RLE Medical Decision Making Medical Decision Making [facility] Narrative: Patient is a 33-year-old female presenting to the emergency department with complaint of right posterior ankle pain intermittent swelling for the past month. On exam patient is awake, A+Ox3, VS WNL, afebrile, normal neurological exam without focal deficits, physical exam findings as above. Given reported symptoms and physical exam findings, initial differential includes Achilles tendinitis, ankle strain, sprain. Unlikely fracture, dislocation, DVT. X-rays right ankle and foot ordered by triage provider notable for no acute fractures. Ultrasound ordered by triage provider notable for no evidence of DVT. My interpretation is in agreement with the radiologist's interpretation. Discussed with patient the physical exam findings are consistent with Achilles tendinitis. Will provide patient with walking boot and exercises. Instructed her to follow up with PCP as she may require physical therapy to improve symptoms. Will send prescription for naproxen, patient advised patient to elevate while at rest and apply ice intermittently. Return precautions discussed. Patient verbalized understanding of and agreement with plan. Differential Diagnosis Differential Diagnoses: The differential diagnosis associated with the presentation includes As per MDM. Independent Interpretation I performed an independent interpretation of an: Plain X-Ray and Ultrasound Interpretation: X-rays right ankle and foot ordered by triage provider notable for no acute fractures. Ultrasound ordered by triage provider notable for no evidence of DVT. Radiology Impression Discussion of test interpretation with radiology: I have reviewed the radiologist's reading. Radiologist Impression: XR/XR foot RT min 3V IMPRESSION: 1. Moderate lateral and mild medial malleolar soft tissue swelling. No visible acute fracture or dislocation seen. 2. Unremarkable right foot exam. US/US venous duplex LE RT IMPRESSION: No evidence of deep venous thrombosis involving the right lower extremity. External Record Review External record reviewed: Inpatient record, Office record and Outpatient record Prescription Management I considered prescription management with: Pain Medication Discharge Plan Discharge Clinical Impression: Achilles tendinitis of right lower extremity Patient Disposition: Home, Self-Care Instructions: Achilles Tendinitis (ED) Additional Instructions: You have been evaluated in the emergency department today for ankle pain. Your exam is consistent with achilles tendonitis. Your xrays were without evidence of fracture and your ultrasound did not show evidence of a blood clot. We have provided a walking boot for you to use while your ankle heals. Please rest, ice, and elevate your ankle, and resume normal activities as tolerated. We recommend you take 600mg ibuprofen every 6 hours or 650mg Tylenol every 6 hours as needed for pain. If needed you can alternate these medications as they take 1 medication every 3 hours. For instance at noon take ibuprofen, then at 3:00 p.m. take Tylenol, then at 6:00 p.m. take ibuprofen. Please schedule an appointment for follow-up with your primary care provider this week. You may need physical therapy to improve your symptoms. Return to the emergency department if you experience worsening pain, numbness, tingling, change of color in your ankle/foot, or any other concerning symptoms. Prescriptions: New naproxen 500 mg tablet 500 mg PO BID Qty: 14 0RF No Action ibuprofen 600 mg tablet 600 mg PO Q6H PRN (Reason: pain) Qty: 20 0RF lidocaine 4 % adhesive patch,medicated 1 patch topical Q24H PRN (Reason: pain) 10 Days Qty: 10 0RF Rx Instructions: may leave on for up to 12 hrs ibuprofen 800 mg tablet 800 mg PO Q8H PRN (Reason: pain) Qty: 30 0RF cyclobenzaprine 5 mg tablet 5 mg PO TID PRN (Reason: muscle spasm) Qty: 14 0RF cyclobenzaprine 10 mg tablet 10 mg PO TID Qty: 10 0RF naproxen [Naprosyn] 500 mg tablet 500 mg PO BID Qty: 20 0RF Print Language: Slovenian
[2024-01-01 19:57] VITALS: BP 117/68; PULSE 100; RESP 16; TEMP 36.8; O2SAT 99
[2024-01-01 20:01] VITALS: BP 117/68; PULSE 100; RESP 16; TEMP 36.8; O2SAT 99
== END 2024-01-01 20:02 | disposition home or self-care (01) ==
PROVIDERS: Emergency Provider Emergency Medicine; PCP Nurse Practitioner Family
DX: M76.61 Achilles tendinitis, right leg (principal); M25.571 Pain in right ankle and joints of right foot; R60.0 Localized edema
CPT/HCPCS: 73610; 73630; 93971; 99284

== ENCOUNTER 2024-06-18 10:35 | Outpatient (REF) | payer MEDICAID, SELFPAY ==
[2024-06-18 11:11] LABS: MANUAL DIFF FLAG NO
[2024-06-18 11:31] LABS: B Type Natriuretic Peptide 28 pg/mL (<100); Basophils Percent Auto 0.3 % (0-2); Eosinophils Absolute Auto 0.1 X10*3/uL (0.0-0.4); Hematocrit 39.9 % (37.0-47.0); Hemoglobin 12.8 g/dl (12.0-16.0); Imm Gran Abs Auto 0.07 X10*3/uL (0.00-0.03); Imm Gran Pct Auto 0.7 % (0.0-0.4); Lymphocytes Absolute Auto 2.1 X10*3/uL (1.2-4.9); Lymphocytes Percent Auto 20.3 % (20-40); Mean Corpuscular HGB Conc 32.1 g/dl (31.0-35.0); Mean Corpuscular Hemoglobin 27.2 pg (27.0-33.0); Mean Corpuscular Volume 84.9 fL (80.0-98.0); Mean Platelet Volume 10.5 fL (9.4-12.3); Monocytes Absolute Auto 0.6 X10*3/uL (0.1-1.2); Monocytes Percent Auto 5.5 % (2-11); Neutrophils Absolute Auto 7.4 x10*3/uL (2.0-8.3); Neutrophils Percent Auto 72.2 % (45-73); Platelet Count 239 X10*3/uL (160-400); Red Cell Distribution Width 16.4 % (11.0-16.0); White Blood Count 10.3 X10*3/uL (4.8-10.8)
[2024-06-18 11:34] LABS: Estimated Average Glucose 126 mg/dL; Total Hemoglobin (HGBA1C) 3384.5555 umol/L
[2024-06-18 11:46] LABS: Amphetamine Screen Urine Not Detected (Not Detect); Barbiturates, Urine Not Detected (Not Detect); Benzodiazepines Screen Urine Not Detected (Not Detect); Buprenorphine Scr Not Detected (Not Detect); Cannabinoid Screen Urine Not Detected (Not Detect); Cocaine Screen Urine Not Detected (Not Detect); Fentanyl, urine Not Detected (Not Detect); Methadone Screen, Urine Not Detected (Not Detect); Opiate Screen Urine Not Detected (Not Detect); Oxycodone Screen Urine Not Detected (Not Detect); Phencyclidine Screen Urine Not Detected (Not Detect)
[2024-06-18 12:24] LABS: Alanine Aminotransferase 15 U/L (0-31); Albumin Level 3.7 g/dL (3.5-5.0); Alkaline Phosphatase 101 U/L (39-117); Anion Gap 13 (12-20); Aspartate Amino Transferase 22 U/L (5-31); Bilirubin Total 0.3 mg/dL (0.0-1.0); Blood Urea Nitrogen 15 mg/dL (9-16); Carbon Dioxide 24 mmol/L (22-29); Chloride 105 mmol/L (96-108); Estimated Glomerular Filt Rate > 60; Glucose Random 103 mg/dL (60-115); Potassium 4.1 mmol/L (3.3-5.1); Sodium 138 mmol/L (135-145); Total Protein 8.3 g/dL (6.5-8.0)
[2024-06-18 12:51] LABS: Ferritin 48 ng/mL (10-122); TSH reflex Free T4 6.27 uIU/mL (0.32-4.0); Thyroid Stimulating Hormone 6.27 uIU/mL (0.32-4.0)
[2024-06-19 05:54] LABS: Follicle Stimulating Hormone 2.5 mIU/mL; Lutenizing Hormone 2.7 mIU/mL
[2024-06-24 14:43] LABS: Anti Nuclear Antibody Pattern Nuclear, Speckled; Anti Nuclear Antibody Screen POSITIVE (NEGATIVE)
== END 2024-06-18 10:36 | disposition home or self-care (01) ==
LOC: HO.HHCL 10:35
PROVIDERS: Registered Nurse; Visit Provider Nurse Practitioner Family
DX: E03.9 Hypothyroidism, unspecified (principal); F31.9 Bipolar disorder, unspecified; I50.9 Heart failure, unspecified; I42.9 Cardiomyopathy, unspecified; R21 Rash and other nonspecific skin eruption
CPT/HCPCS: 36415; 80053; 80307; 82728; 83001; 83002; 83036; 83880; 84439; 84443; 85025; 86038; 86039

== ENCOUNTER 2024-06-23 11:13 | Outpatient (REF) | payer MEDICAID, SELFPAY ==
--- NOTE | ~2024-06-23 | US_ITS ---
EXAMINATION: US ABDOMEN HISTORY: JAUNDICE,? HEPATORENAL SYNDROME TECHNIQUE: Real-time grayscale ultrasound imaging of the abdomen was performed and images were reviewed. COMPARISON: Correlation is made with a CT of the abdomen with contrast dated 08/25/2018. FINDINGS: Liver: The right lobe of the liver measures 18.3 cm in size. The left lobe of the liver measures 15.4 cm in size. The liver demonstrates increased echotexture, consistent with steatosis. No focal mass or intrahepatic biliary ductal dilatation is identified. There is normal hepatopedal flow in the portal vein. Gallbladder and biliary tree: The gallbladder is unremarkable, without evidence of calculi, wall thickening, or pericholecystic fluid. There is no sonographic Carson sign. The common bile duct is normal in caliber measuring 3 mm. Kidneys: The right kidney measures 13.8 cm in length. There is an 8 mm cyst at the lower pole. There is possible mild fullness of the collecting system. The left kidney measures 10.5 cm in length and is unremarkable. Pancreas: The pancreatic head, neck, and body are unremarkable. The pancreatic tail is obscured by bowel gas. Spleen: The spleen is normal in size and contour, measuring 11.9 cm in length. Abdominal aorta and inferior vena cava: The visualized portions of the abdominal aorta and inferior vena cava are normal in caliber. There is no free fluid in the abdomen. US/US abdomen complete IMPRESSION: 1. Hepatomegaly and hepatic steatosis. 2. Possible mild fullness of the right renal collecting system. Electronically signed by: Juan Luis Burnette MD 06/23/2024 12:31 PM EDT
--- OUTSIDE RECORDS SUMMARY | 2024-06-23 13:31 | XMS_ITS | Encounter Summary ---
Author Organization [facility] Address [address] [place] [address] Care Team Providers Care Reading Assistant Name Role Phone Dereje Berrios MD Primary Care Provider [phone] Ciarra Gordon MD Primary Care Prov ider Dereje Berrios MD Primary Care Provider [phone] Jolie Conklin PA-C Primary Care Provider + Encounter Details Date Type Department Care Team Description 03/16/2018 Release of Information Medical Records [address] [place] [id number] Abstract, Provider Social History Tobacco Use Types Packs/Day Years Used Date Smoking Tobacco: Every Day Cigarettes 6 Last attempted to quit: 01/20/2013 Smokeless Tobacco: Current Comments:1 cig daily Alcohol Use Standard Drinks/Week Comments No 0 (1 standard drink = 0.6 oz pur e alcohol) Sex Assigned at Date Recorded Not on file documented as of this encounter Plan of Treatment Not on file documented as of this encounter Visit Diagnoses Not on filedocumented in this encounter Care Teams Reading Assistant Relationship Specialty Start Date End Date Dereje Berrios MD PCP - General Internal Medicine 01/27/18 08/24/18 Ciarra Gordon MD [address] [place] [address] [id number] PCP - General Pediatrics 08/25/18 09/20/18 Dereje Berrios MD [address] [place], [place] PCP - General Internal Medicine 09/21/18 07/03/20 Jolie Conklin PA-C [address] [place] [address] PCP - General Internal Medicine 07/04/20 documented as of this encounter
--- OUTSIDE RECORDS SUMMARY | 2024-06-23 13:31 | XMS_ITS | Encounter Summary ---
Author Organization [facility] Address [address] [place] [address] Care Team Providers Care Art Conservator Name Role Phone Dyllan Lam MD Primary Care Provider Unavailable Jenna Quigley MD Primary Care Provider Dyllan Boucher MD Primary Care Provider Unavailable Sekou Manzano MD Primary Care Provider Kate Arguelles APRN Primary Care Provider [phone] Dereje Berrios MD Primary Care Provider [phone] Ciarra Gordon MD Primary Care Prov ider Dereje Berrios MD Primary Care Provider [phone] Jolie Conklin PA-C Primary Care Provider + Reason for Visit * Reason Onset Date Comments TEST RESULTS 04/13/2014 Encounter Details Date Type Department Care Team Description 04/13/2014 Telephone Adult Medicine [address] [address] Jenna Thompson PA-C [address] [place] [id number] TEST RESULTS Social History Tobacco Use Types Packs/Day Years Used Date Smoking Tobacco: Former Cigarettes Q uit: 01/20/2013 Smokeless Tobacco: Never Comments:use to smoke 3 pack s per day. Alcohol Use Standard Drinks/Week Comments No 0 (1 standard drink = 0.6 oz pur e alcohol) Sex Assigned at Date Recorded Not on file documented as of this encounter Miscellaneous Notes * Telephone Encounter - Radha Schwarz M.A. - 04/13/2014 4:40 PM EST Called pt, another woman answered stating trinity was not available, she will give her the msg to call us back. documented in this encounter Plan of Treatment Not on file documented as of this encounter Visit Diagnoses Not on filedocumented in this encounter Care Teams Art Conservator Relationship Specialty Start Date End Date Dyllan Lam MD PCP - General Internal Medicine 05/21/1306/29 Jenna Quigley MD PCP - General Pediatrics 07/18/14 08/01/14 Dyllan Lam MD PCP - General Internal Medicine 08/02/1411/02 Sekou Manzano MD PCP - General Internal Medicine 11/03/14 12/19/16 Kate Aleman, CALENDER MACHINE OPERATOR HELPER PCP - General Internal Medicine 12/20/16 01/26/18 Dereje Berrios MD PCP - General Internal Medicine 01/27/18 08/24/18 Ciarra Gordon MD [address] [place] [address] PCP - General Pediatrics 08/25/18 09/20/18 Dereje Berrios MD [address] [place] [address] PCP - General Internal Medicine 09/21/18 07/03/20 Jolie Conklin PA-C [address] [place] [address] PCP - General Internal Medicine 07/04/20 documented as of this encounter
--- OUTSIDE RECORDS SUMMARY | 2024-06-23 13:31 | XMS_ITS | Clinical Summary ---
Author Organization [facility] Address [address] [place] [address] Phone Care Team Providers Care Steam Pan Sponger Name Role Phone Unavailable Primary Care Provider Unavailabl e Immunizations Immunization Administration Dates Next Due DTP 11/13/1994, 3,02/19/1991,07/30 Hep B, ped/adol 01/27/2002,10/10/2000,04/09/2000 Hib (PRP-T) 02/18/1991 Influenza Split 02/22/1998 Influenza, injectable, trivalent 02/22/1998 MMR 11/13/1994,02/19/1991 Meningococcal Conj (Menactra) MCV4P 07/08/2006 OPV 11/13/1994, 3,02/19/1991,07/30 Td (adult) (MBL), 2 Lf tetan us toxoid, PF, adsorbed 04/09/2000 Tdap 07/08/2006 Varicella 07/08/2006 Family History Relation Name Status Comments Brother Alive Brother: Alive and well Father Alive Father: Heart d isease Mother Alive Mother: Alive a nd well Other Family history of Asthma, Family history of Sudden /AK under age 55, Family history of Diabetes mellitus, Family history of ADD/ADHD, Family history of Obesity Social History Tobacco Use Types Packs/Day Years Used Date Smoking Tobacco: Never Assessed Comments Unknown Sex and Gender Information Value Date Recorded Sex Assigned at Not on file Legal Sex Female 4:21 PM EDT Gender Identity Not on file Sexual Orientation Not on file Plan of Treatment Health Maintenance Due Date Last Done Comments Varicella Vaccines (2 of 2 - 13+ 2-dose series) 08/05/2006 07/08/2006 DTaP,Tdap,and Td Vaccines (6 - Td or Tdap) 07/08/2016 07/08/2006, 04/09/2000, 11/13/1994, Additional history exists Influenza Vaccines (#1) 2023 02/22/1998, 02/22 COVID-19 Vaccine ( season) 2023 HIB Vaccines Completed 02/18/1991 IPV Vaccines Completed 11/13/1994, 09/28, 02/19/1991, Additional history exists MMR Vaccines Completed 11/13/1994, 02/19/1991 Hepatitis B Vaccines Completed 01/27/2002, 10/10/2000, 04/09/2000 Meningococcal Vaccine Completed 07/08/2006 HPV Vaccines Aged Out No longer eligi ble based on patient's age to complete this topic Hepatitis A Vaccines Aged Out No long er eligible based on patient's age to complete this topic Men B Vaccine Aged Out No longer elig ible based on patient's age to complete this topic Pneumococcal Vaccine Aged Out No long er eligible based on patient's age to complete this topic
--- OUTSIDE RECORDS SUMMARY | 2024-06-23 13:31 | XMS_ITS | Encounter Summary ---
Author Organization [facility] Address [address] [place] [address] Care Team Providers Care Weight Loss Centre Manager Name Role Phone Sekou Manzano MD Primary Care Provider Kate Arguelles APRN Primary Care Provider [phone] Dereje Berrios MD Primary Care Provider [phone] Ciarra Gordon MD Primary Care Prov ider Dereje Berrios MD Primary Care Provider [phone] Jolie Conklin PA-C Primary Care Provider + Reason for Visit * Reason Onset Date Comments Testing 07/25/2016 Encounter Details Date Type Department Care Team Description 07/25/2016 Telephone Radiology - [address] [id number] Kb Oneil MD [address] [place] [address] Testing Social History Tobacco Use Types Packs/Day Years Used Date Smoking Tobacco: Every Day Cigarettes 6 Last attempted to quit: 01/20/2013 Smokeless Tobacco: Current Comments:use to smoke 3 pack s per day. Alcohol Use Standard Drinks/Week Comments No 0 (1 standard drink = 0.6 oz pur e alcohol) Sex Assigned at Date Recorded Not on file documented as of this encounter Miscellaneous Notes * Telephone Encounter - Jenna Vaughano - 07/25/2016 2:51 PM EDT Trinity Fernando has not responded to the telephone calls that were made as well as the letter that was sent to schedule a SONO PELVIS COMPLETE Therefore we are removing the test from our Scheduled Orders Report. Please note that this test must be reordered if required in the future. Thank you, Radiology documented in this encounter Plan of Treatment Not on file documented as of this encounter Visit Diagnoses Not on filedocumented in this encounter Care Teams Weight Loss Centre Manager Relationship Specialty Start Date End Date Sekou Manzano MD PCP - General Internal Medicine 11/03/14 12/19/16 Kate Aleman APRN PCP - General Internal Medicine 12/20/16 01/26/18 Dereje Berrios MD PCP - General Internal Medicine 01/27/18 08/24/18 Ciarra Gordon MD [address] [place] [address] PCP - General Pediatrics 08/25/18 09/20/18 Dereje Berrios MD [address] [place] [address] PCP - General Internal Medicine 09/21/18 07/03/20 Jolie Conklin PA-C [address] [place] [address] PCP - General Internal Medicine 07/04/20 documented as of this encounter
--- OUTSIDE RECORDS SUMMARY | 2024-06-23 13:31 | XMS_ITS | Encounter Summary ---
Author Organization [facility] Address [address] [place] [address] Care Team Providers Care Immersion Metal Cleaner Name Role Phone Dereje Berrios MD Primary Care Provider [phone] Jolie Conklin PA-C Primary Care Provider + Reason for Visit * Reason Onset Date Comments refill request 06/28/2020 Encounter Details Date Type Department Care Team Description 06/28/2020 Refill Internal Medicine - [address], [address] [place] [address] Dereje Berrios MD [address] [place] [address] refill request Social History Tobacco Use Types Packs/Day Years Used Date Smoking Tobacco: Every Day Cigarettes 0.5 6 Last attempted to quit: 01/20/2013 Smokeless Tobacco: Current Alcohol Use Standard Drinks/Week Comments No 0 (1 standard drink = 0.6 oz pur e alcohol) Sex Assigned at Date Recorded Not on file documented as of this encounter Miscellaneous Notes * Telephone Encounter - Mono Quintana - 06/28/2020 1:38 PM EDT Christine 01/05/20 07/04/20 * Telephone Encounter - Yuliana Christian - 06/28/2020 1:19 PM EDT Christine 01/05/20 07/04/20 documented in this encounter Plan of Treatment Not on file documented as of this encounter Visit Diagnoses Not on filedocumented in this encounter Care Teams Immersion Metal Cleaner Relationship Specialty Start Date End Date Dereje Berrios MD PCP - General Internal Medicine 09/21/18 07/03/20 Jolie Conklin PA-C PCP - General Internal Medicine 07/04/20 documented as of this encounter
--- OUTSIDE RECORDS SUMMARY | 2024-06-23 13:31 | XMS_ITS | Encounter Summary ---
Author Organization [facility] Address [address] [place] [address] Care Team Providers Care Wash Operator Name Role Phone Dereje Berrios MD Primary Care Provider [phone] Jolie Conklin PA-C Primary Care Provider + Reason for Visit * Reason Onset Date Comments lab test 10/15/2018 [facility] Encounter Details Date Type Department Care Team Description 10/15/2018 Telephone Internal Medicine - [address], [address] [place] [address] Dereje Berrios MD [address] [place], [place] [id number] lab test ([facility]) Social History Tobacco Use Types Packs/Day Years Used Date Smoking Tobacco: Every Day Cigarettes 0.5 6 Last attempted to quit: 01/20/2013 Smokeless Tobacco: Current Alcohol Use Standard Drinks/Week Comments No 0 (1 standard drink = 0.6 oz pur e alcohol) Sex Assigned at Date Recorded Not on file documented as of this encounter Miscellaneous Notes * Telephone Encounter - Sarah Phillips - 10/15/2018 2:43 PM EDT Pt calling and request blood test- TB for school Please put in order for her documented in this encounter Plan of Treatment Not on file documented as of this encounter Visit Diagnoses Not on filedocumented in this encounter Care Teams Wash Operator Relationship Specialty Start Date End Date Dereje Berrios MD PCP - General Internal Medicine 09/21/18 07/03/20 Jolie Conklin PA-C PCP - General Internal Medicine 07/04/20 documented as of this encounter
--- OUTSIDE RECORDS SUMMARY | 2024-06-23 13:31 | XMS_ITS | Encounter Summary ---
Author Organization [facility] Address [address] [place] [address] Care Team Providers Care Pad Hand Name Role Phone Dereje Berrios MD Primary Care Provider [phone] Ciarra Gordon MD Primary Care Prov ider Dereje Berrios MD Primary Care Provider [phone] Jolie Conklin PA-C Primary Care Provider + Encounter Details Date Type Department Care Team Description 08/13/2018 Rn Cardiac Cath Report Medical Records [address] [place] [id number] Rehab., [place] Social History Tobacco Use Types Packs/Day Years [...] on filedocumented in this encounter Care Teams Pad Hand Relationship Specialty Start Date End Date Dereje Berrios MD PCP - General Internal Medicine 01/27/18 08/24/18 Ciarra Gordon MD [address] [place] [address] [id number] PCP - General Pediatrics 08/25/18 09/20/18 Dereje Berrios MD [address] [place], [place] PCP - General Internal Medicine 09/21/18 07/03/20 Jolie Conklin PA-C [address] [place] [address] PCP - General Internal Medicine 07/04/20 documented as of this encounter
--- OUTSIDE RECORDS SUMMARY | 2024-06-23 13:31 | XMS_ITS | Encounter Summary ---
Author Organization [facility] Address [address] [place] [address] Care Team Providers Care Brick Molder Hand Name Role Phone Dereje Berrios MD Primary Care Provider [phone] Jolie Conklin PA-C Primary Care Provider + Encounter Details Date Type Department Care Team Description 12/08/2018 Orders Only Medical Records [address] [place] [id number] Abstract, Provider Social History Tobacco Use Types [...] on file documented as of this encounter Procedures Procedure Name Priority Date/Time Associated Diagnosis Comments OUTSIDE PLAIN FILM Routine 12/07/2018 documented in this encounter Results * OUTSIDE PLAIN FILM (12/07/2018) Dereje Berrios MD RADIOLOGY documented in this encounter Visit Diagnoses Not on filedocumented in this encounter Care Teams Brick Molder Hand Relationship Specialty Start Date End Date Dereje Berrios MD PCP - General Internal Medicine 09/21/18 07/03/20 Jolie Conklin PA-C PCP - General Internal Medicine 07/04/20 documented as of this encounter
--- OUTSIDE RECORDS SUMMARY | 2024-06-23 13:31 | XMS_ITS | Encounter Summary ---
Author Organization [facility] Address [address] [place] [address] Care Team Providers Care Solution Advisor Name Role Phone Dereje Berrios MD Primary Care Provider [phone] Jolie Conklin PA-C Primary Care Provider + Encounter Details Date Type Department Care Team Description 10/16/2018 Orders Only Internal Medicine - [address], [address] [place] [address] Dereje Berrios MD [address] [place] [address] Preventative health care (Primary Dx) Social History Tobacco Use Types Packs/Day Years Used Date Smoking Tobacco: Every Day Cigarettes 0.5 6 Last attempted to quit: 01/20/2013 Smokeless Tobacco: Current Alcohol Use Standard Drinks/Week Comments No 0 (1 standard drink = 0.6 oz pur e alcohol) Sex Assigned at Date Recorded Not on file documented as of this encounter Plan of Treatment Scheduled Orders Name Type Priority Associated Diagnoses Orde r Schedule QUANTIFERON TB GOLD Lab Routine Preventative health care Expected: 10/16/2018, Expires: 10/16/2019 documented as of this encounter Visit Diagnoses Diagnosis Preventative health care- Primary Routine general medical examination at a health care facility documented in this encounter Care Teams Solution Advisor Relationship Specialty Start Date End Date Dereje Berrios MD PCP - General Internal Medicine 09/21/18 07/03/20 Jolie Conklin PA-C PCP - General Internal Medicine 07/04/20 documented as of this encounter
--- OUTSIDE RECORDS SUMMARY | 2024-06-23 13:31 | XMS_ITS | Encounter Summary ---
Author Organization [facility] Address [address] [place] [address] Phone Care Team Providers Care Dipper Operator Name Role Phone Michela Musa MD Primary Care Provider [phone] Encounter Details Date Type Department Care Team (Late st Contact Info) Description 11/14/2016 Conversion Encounter [facility] [place] [address] [place] [address] Social History Tobacco Use Types Packs/Day Years Used Date Smoking Tobacco: Never Assessed Comments Unknown Sex and Gender Information Value Date Recorded Sex Assigned at Not on file Legal Sex Female 4:21 PM EDT Gender Identity Not on file Sexual Orientation Not on file documented as of this encounter Plan of Treatment Not on file documented as of this encounter Visit Diagnoses Not on filedocumented in this encounter Care Teams Dipper Operator Relationship Specialty Start Date End Date Michela Musa MD [address] [place] [address] PCP - General 11/08/16 06/30/22 documented as of this encounter
--- OUTSIDE RECORDS SUMMARY | 2024-06-23 13:31 | XMS_ITS | Encounter Summary ---
Author Organization [facility] Address [address] [place] [address] Care Team Providers Care Brush Painter Name Role Phone Dyllan Lam MD Primary Care Provider Unavailable Jenna Quigley MD Primary Care Provider Dyllan Boucher MD Primary Care Provider Unavailable Sekou Manzano MD Primary Care Provider Kate Arguelles APRN Primary Care Provider [phone] Dereje Berrios MD Primary Care Provider [phone] Ciarra Gordon MD Primary Care Prov ider Dereje Berrios MD Primary Care Provider [phone] Jolie Conklin PA-C Primary Care Provider + Encounter Details Date Type Department Care Team Description 05/01/2013 Hospital Medical Records [address] [place] [id number] Rosetta Lynch MD Social History Tobacco Use Types Packs/Day Years [...] on filedocumented in this encounter Care Teams Brush Painter Relationship Specialty Start Date End Date Dyllan Lam MD PCP - General Internal Medicine 05/21/1306/29 Jenna Quigley MD PCP - General Pediatrics 07/18/14 08/01/14 Dyllan Lam MD PCP - General Internal Medicine 08/02/1411/02 Sekou Manzano MD PCP - General Internal Medicine 11/03/14 12/19/16 Kate Aleman, CONTACT PRINTER DRY FILM PCP - General Internal Medicine 12/20/16 01/26/18 Dereje Berrios MD PCP - General Internal Medicine 01/27/18 08/24/18 Ciarra Gordon MD [address] [place] [address] PCP - General Pediatrics 08/25/18 09/20/18 Dereje Berrios MD [address] [place] [address] PCP - General Internal Medicine 09/21/18 07/03/20 Jolie Conklin PA-C [address] [place] [address] PCP - General Internal Medicine 07/04/20 documented as of this encounter
--- OUTSIDE RECORDS SUMMARY | 2024-06-23 13:31 | XMS_ITS | Encounter Summary ---
Author Organization [facility] Address [address] [place] [address] Care Team Providers Care Rod Tape Operator Name Role Phone Dereje Berrios MD Primary Care Provider [phone] Jolie Conklin PA-C Primary Care Provider + Encounter Details Date Type Department Care Team Description 01/14/2019 Special Events Assistant Report Medical Records [address] [place] [id number] Christian Copeland MD Social History Tobacco Use Types Packs/Day [...] on filedocumented in this encounter Care Teams Rod Tape Operator Relationship Specialty Start Date End Date Dereje Berrios MD PCP - General Internal Medicine 09/21/18 07/03/20 Jolie Conklin PA-C PCP - General Internal Medicine 07/04/20 documented as of this encounter
--- OUTSIDE RECORDS SUMMARY | 2024-06-23 13:31 | XMS_ITS | Encounter Summary ---
Author Organization [facility] Address [address] [place] [address] Care Team Providers Care Shipyard Painter Helper Name Role Phone Dereje Berrios MD Primary Care Provider [phone] Jolie Conklin PA-C Primary Care Provider + Reason for Referral * EXTERNAL (Priority) - Authorized/Booked Specialty Diagnoses / Procedures Referred By Jena sheehan Referred To Contact Rheumatology Procedures REFERRAL TO RHEUMATOLOGY Dereje Berrios MD [address] [place] [id number] Henrique KristynBrian [address] [place] [id number] Referral ID Status Reason Start Date Expiration Date V isits Requested Visits Authorized SEE NOTE Authorized/B ooked 12/09/2018 03/10/2019 1 1 Encounter Details Date Type Department Care Team Description 12/09/2018 Orders Only Internal Medicine - [address], [address] [place] [address] Dereje Berrios MD [address] [place] [address] Social History Tobacco Use Types Packs/Day Years [...] on filedocumented in this encounter Care Teams Shipyard Painter Helper Relationship Specialty Start Date End Date Dereje Berrios MD PCP - General Internal Medicine 09/21/18 07/03/20 Jolie Conklin PA-C PCP - General Internal Medicine 07/04/20 documented as of this encounter
== END 2024-06-23 11:14 | disposition home or self-care (01) ==
LOC: HO.US 11:13
PROVIDERS: PCP Nurse Practitioner Family; Visit Provider Nurse Practitioner Family
DX: R17 Unspecified jaundice (principal)
CPT/HCPCS: 76700

== ENCOUNTER → 2024-06-23 11:15 | Outpatient (BNV) | payer MEDICAID, SELFPAY | PROVIDERS: PCP Nurse Practitioner Family; Visit Provider Radiology Diagnostic Radiology | DX: R16.0 Hepatomegaly, not elsewhere classified (principal); K76.0 Fatty (change of) liver, not elsewhere classified | CPT/HCPCS: 76700 ==

== ENCOUNTER 2024-10-03 22:44 | Emergency (ER) | payer MEDICAID, SELFPAY ==
--- NOTE | 2024-10-03 | ECG_ITS ---
Test Reason : chest pain Blood Pressure : */* mmHG Vent. Rate : 88 BPM Atrial Rate : 88 BPM P-R Int : 184 ms QRS Dur : 112 ms QT Int : 398 ms P-R-T Axes : 17 -22 10 degrees QTcB Int : 481 ms Normal sinus rhythm Moderate voltage criteria for LVH, may be normal variant ( R in aVL , Vershire product ) Prolonged QT Abnormal ECG When compared with ECG of 19-Dec-2023 19:48, No significant change was found Referred By: Generic ED Physician Electronically Signed By: Chandana Sharp
--- NOTE | ~2024-10-03 | XR_ITS ---
CLINICAL HISTORY: central chest pain 2 view chest x-ray. Comparison: CR/SR - XR CHEST 1V - 11/05/21 11:19 EDT Findings: No consolidation, pneumothorax, or effusion. Heart size is borderline enlarged. Dextroscoliosis present at the thoracic spine. Impression: 1. Borderline cardiomegaly. Otherwise, no acute cardiopulmonary process. No focal pulmonary consolidation. This document has been electronically signed by: Jose Moore MD on 10/04/2024 00:52:09
[2024-10-03 22:51] VITALS: BP 155/96; PULSE 96; O2SAT 98
[2024-10-03 22:57] VITALS: BP 132/85; PULSE 88; RESP 20; TEMP 36.9; BMI 47.2
[2024-10-03 23:38] VITALS: PULSE 89
[2024-10-03 23:40] LABS: Hematocrit 39.3 % (37.0-47.0); Hemoglobin 13.5 g/dl (12.0-16.0); Imm Gran Abs Auto 0.04 X10*3/uL (0.00-0.03); Imm Gran Pct Auto 0.5 % (0.0-0.4); Lymphocytes Absolute Auto 2.3 X10*3/uL (1.2-4.9); MANUAL DIFF FLAG NO; Mean Corpuscular HGB Conc 34.4 g/dl (31.0-35.0); Mean Corpuscular Hemoglobin 29.0 pg (27.0-33.0); Mean Corpuscular Volume 84.5 fL (80.0-98.0); NRBC Abs Auto 0.000 X10*3/uL (0.0-0.012); NRBC Pct Auto 0.0 /100WBC (0.0-0.2); Platelet Count 226 X10*3/uL (160-400); Red Blood Count 4.65 X10*6/uL (4.20-5.50); White Blood Count 8.8 X10*3/uL (4.8-10.8)
--- NOTE | 2024-10-03 23:56 | ED.CHESTPAIN ---
HPI - Chest Pain General Chief Complaint: Chest Pain Stated Complaint: burning chest pain Time Seen by Provider: 10/03/24 23:47 History of Present Illness ED Provider: Charlie Stroud MD HPI narrative: 34-year-old female with nonischemic cardiomyopathy felt to be . Follows at [facility]. Severe global hypokinesis of the left ventricle. Normal coronaries. Recent hospitalization for similar presentation of central chest discomfort fluctuating and at rest. Discharged from [facility] in September 21. They started Lasix 40 and increase metoprolol to 50 mg daily. She has had early discussions of defibrillator placement or possibly transplantation. Former smoker no drug use currently. Pain tonight started about 2 or 3 hours ago she was at rest sitting at her father's house. Denies any radiation to the neck or back or chest. No tearing or ripping. No vomiting or belching. Denies any injuries to the chest wall no history of PE or DVT Related Data Previous Rx's ?Medication ?Instructions ?Recorded cyclobenzaprine 5 mg tablet 5 mg PO TID PRN muscle spasm #14 04/14/20 tabs ibuprofen 800 mg tablet 800 mg PO Q8H PRN pain #30 tabs 04/14/20 lidocaine 4 % topical patch 1 patch topical Q24H PRN pain 10 04/14/20 days #10 ea ibuprofen 600 mg tablet 600 mg PO Q6H PRN pain #20 tabs 06/05/20 cyclobenzaprine 10 mg tablet 10 mg PO TID #10 tabs 09/25/21 naproxen 500 mg tablet (Naprosyn) 500 mg PO BID #20 tabs 09/25/21 naproxen 500 mg tablet 500 mg PO BID #14 tabs 01/01/24 Allergies Allergy/AdvReac Type Severity Reaction Status Date / Time aspirin (ASPIRIN) Allergy Intermediate SWELLING Verified 10/03/24 23:01 [facility] Past Medical History Medical History Bipolar 1 disorder Depression Carpal tunnel syndrome Scoliosis Social History Social History Alcohol intake: never Physical Exam Vital Signs: Vital Signs: Last Vital Signs Temp 98.1 F 10/04/24 01:18 Pulse 85 10/04/24 01:18 Resp 16 10/04/24 01:18 BP 132/85 10/04/24 01:18 Pulse Ox 97 10/04/24 01:18 O2 Del Method Room Air 10/04/24 01:18 BMI result Body Mass Index 47.2 Const: Other: EXAM: Gen: Alert, awake, well appearing, well hydrated. Head: Atraumatic Eyes: Anicteric, Normal conjunctiva. ENT: Moist mucosa, no pallor. ? Neck: Supple. Skin: ?No observable rash or bruising on exposed or examined skin Respiratory: Breathing comfortably, No distress.Clear to auscultation bilaterally, symmetric chest expansion, No wheeze, rales, ronchi. Cardiovascular: Regular rate and rhythm. No murmurs or rub. Well perfused periphery, warm extremities. No edema. ? Abdominal: No focal tenderness. Soft, no objective distension. No palpable masses or obvious organomegaly. ?No guarding, no rebound tenderness or other peritoneal findings. : No flank tenderness. Neuro: Alert. Gross movement of all extremities intact. ? Psych: Calm. Cooperative. MSK: No grossly visible deformity. Vital signs: See flowsheet Medications Administered Discontinued Medications Generic Name Dose Route Start Last Admin Trade Name Freq PRN Reason Stop Dose Admin Naproxen 250 mg 10/04/24 00:03 10/04/24 00:32 Naproxen 250 Mg Tablet PO 10/04/24 00:04 250 mg ONCE ONE Administration Medical Decision Making Medical Decision Making MDM Narrative: Medical Decision Makin-year-old female with nonischemic cardiomyopathy with atypical nonexertional chest pain. Previous cardiac catheterization within 1 year normal coronaries documented at [facility]. Recent ACS exclusion late August of this year at [facility]. Atypical probably musculoskeletal. Does not sound like pericarditis. No clinical signs of DVT nor any history of DVT PE I doubt PE as the etiology. Patient's heart rates normal she has no acute ischemic changes on ECG. Preliminary Favored Differential Diagnosis: Atypical chest pain, musculoskeletal pain, pleuritis or pericarditis, less likely ACS. among additional considered etiologies Testing Interpreted Independently: ECG: Sinus rhythm rate 88 QTC 481. No acute ischemic changes. LVH. At time of disposition radiology reading of x-ray not completed I interpreted this myself: X-ray without effusion, pneumothorax. Cardiac silhouette is enlarged consistent with known cardiomegaly/heart fa Radiology or Lab testing Results Reviewed: Lab work without suggestion of ND. Fasting glucose slightly elevated. Normal electrolytes. Consults: Not Applicable Independent Historians/External Chart Reviews: I reviewed [facility] recent discharge summary written on 09/21/2024 at 13:36 see the text copied from the hospital course below Social Determinants of Health Impacting MDM/Planning: Not Applicable Lab Data MDM Lab Attestation statement: I reviewed the patient's lab results. 10/03/24 23:33 10/03/24 23:33 Labs: Lab Results 10/03/24 Range/Units 23:33 WBC 8.8 (4.8-10.8) X10*3/uL RBC 4.65 (4.20-5.50) X10*6/uL Hgb 13.5 (12.0-16.0) g/dl Hct 39.3 (37.0-47.0) % MCV 84.5 (80.0-98.0) fL MCH 29.0 (27.0-33.0) pg MCHC 34.4 (31.0-35.0) g/dl RDW 15.1 (11.0-16.0) % Plt Count 226 (160-400) X10*3/uL MPV 10.2 (9.4-12.3) fL Immature Gran % (Auto) 0.5 H (0.0-0.4) % Neut % (Auto) 66.2 (45-73) % Lymph % (Auto) 26.5 (20-40) % [place] % (Auto) 5.3 (2-11) % Eos % (Auto) 1.4 (0-4) % Baso % (Auto) 0.1 (0-2) % Lymph # (Auto) 2.3 (1.2-4.9) X10*3/uL [place] # (Auto) 0.5 (0.1-1.2) X10*3/uL Eos # (Auto) 0.1 (0.0-0.4) X10*3/uL Baso # (Auto) 0.0 (0.0-0.2) X10*3/uL Abs Immat Gran (auto) 0.04 H (0.00-0.03) X10*3/uL Absolute Neuts (auto) 5.9 (2.0-8.3) x10*3/uL Absolute Nucleated RBC 0.000 (0.0-0.012) X10*3/uL Nucleated RBC % (auto) 0.0 (0.0-0.2) /100WBC Sodium 140 (135-145) mmol/L Potassium 3.9 (3.3-5.1) mmol/L Chloride 102 (96-108) mmol/L Carbon Dioxide 23 (22-29) mmol/L Anion Gap 19 (12-20) BUN 17 H (9-16) mg/dL Creatinine 0.83 (0.5-1.4) mg/dL Estim Creat Clear Calc 110.5 Estimated GFR > 60 Random Glucose 146 H (60-115) mg/dL Calcium 9.0 (8.4-10.2) mg/dL Total Bilirubin 0.1 (0.0-1.0) mg/dL AST 23 (5-31) U/L ALT 18 (0-31) U/L Alkaline Phosphatase 103 (39-117) U/L Troponin I High Sens 5.2 (<3.5-17.0) ng/L B-Natriuretic Peptide 24 (<100) pg/mL Total Protein 8.1 H (6.5-8.0) g/dL Albumin 4.1 (3.5-5.0) g/dL External Record Review External record reviewed: Inpatient record ([facility] discharge summary see below) Hospital Course Patient is a 34-year-old female with history of nonischemic dilated cardiomyopathy with normal coronary artery and MRI showing severely dilated left ventricle and severely reduced systolic function of 24% (reportedly happened after delivery in March 2023 ;her EF in the past was found to be 20% but per patient's report now has improved to 30% of echo report for that is not available for my review;follows with [facility] cardiology last seen in February 2024 ), ex-smoker, quit after diagnosis of heart failure, I see documentation of cocaine use in the past when she was 31 years old for 4 months.she did not mention that to me, hypothyroidism, depression/anxiety, aspirin allergy (she told me, I swell ), obesity, presents today for chest pressure which is midsternal and described as numbness that happens unrelated to exertion or activity or anxiety without any radiation to arm or jaw or back and not associated with palpitation or nausea or vomiting or diaphoresis. She reports having this feeling intermittently every few days, last night was at dinner when she felt as an felt like her breathing was underwater . Symptoms lasted for about 30 minutes and have resolved since and have not recurred since being in the emergency department. She has no cough or runny nose or sore throat or fevers or chills. No lightheadedness or syncope is a fall. No leg swelling. She reports overall decreased exercise tolerance but no chest pain. She was supposed to see her sustainability specialist on 28 September but since this symptom happened she presented to the emergency department. She denies any abdominal pain or nausea or vomiting, no constipation or diarrhea, no dysuria, urgency or frequency, no confusion or headache or focal weakness or vision changes Discharge Plan Discharge Clinical Impression: Chest pain Patient Disposition: Home, Self-Care Instructions: Chest Pain (ED) Additional Instructions: DISCHARGE DIAGNOSES: Chest pain, unclear cause chronic and recurrent no evidence of heart attack or other severe acute cardiac issues HISTORY OF PRESENTATION: ?Chest pain without exertion EMERGENCY DEPARTMENT COURSE,TESTS, TREATMENTS: While in the ED today you had a troponin and cardiac enzyme tests, EKG DISCHARGE MEDICATIONS: ?[We have made no changes to your regular medication regimen] FOLLOW-UP: ?Call your primary or general physician soon as possible to discuss your symptoms, your ED visit and to discuss follow up plans Call your sustainability specialist to inform them of your repeated chest pain episodes INSTRUCTIONS ?& RETURN PRECAUTIONS: If any symptoms change first call your primary physician, if it is after-hours your primary doctors office should have a provider concession attendant you can speak with. If the symptoms are severe or very concerning to you then call 911 or return to the ED. Charlie Stroud MD Emergency Physician [facility] Prescriptions: No Action ibuprofen 600 mg tablet 600 mg PO Q6H PRN (Reason: pain) Qty: 20 0RF lidocaine 4 % adhesive patch,medicated 1 patch topical Q24H PRN (Reason: pain) 10 Days Qty: 10 0RF Rx Instructions: may leave on for up to 12 hrs ibuprofen 800 mg tablet 800 mg PO Q8H PRN (Reason: pain) Qty: 30 0RF cyclobenzaprine 5 mg tablet 5 mg PO TID PRN (Reason: muscle spasm) Qty: 14 0RF cyclobenzaprine 10 mg tablet 10 mg PO TID Qty: 10 0RF naproxen [Naprosyn] 500 mg tablet 500 mg PO BID Qty: 20 0RF naproxen 500 mg tablet 500 mg PO BID Qty: 14 0RF Interventions: ED Discharge Assessment Last Done: 10/04/24 01:18 Discharge Date/Time: 10/04/24 01:19 Print Language: Amharic
[2024-10-04 00:04] LABS: Troponin-I High Sensitivity 5.2 ng/L (<3.5-17.0)
[2024-10-04 00:19] LABS: Alanine Aminotransferase 18 U/L (0-31); Albumin Level 4.1 g/dL (3.5-5.0); Alkaline Phosphatase 103 U/L (39-117); Anion Gap 19 (12-20); Aspartate Amino Transferase 23 U/L (5-31); Blood Urea Nitrogen 17 mg/dL (9-16); Calcium 9.0 mg/dL (8.4-10.2); Carbon Dioxide 23 mmol/L (22-29); Chloride 102 mmol/L (96-108); Creatinine Clr Calc Pharmacy 110.5; Estimated Glomerular Filt Rate > 60; Potassium 3.9 mmol/L (3.3-5.1); Sodium 140 mmol/L (135-145); Total Protein 8.1 g/dL (6.5-8.0)
[2024-10-04 00:26] LABS: B Type Natriuretic Peptide 24 pg/mL (<100)
--- NOTE | 2024-10-04 01:07 | PC.NURSE ---
Patient medicated per MAY for 11/07 substernal chest pain. Patient denies dyspnea at present, VSS, HR [address] Patient requested and given a pillow. Patient resting in stretcher bed in no distress. Call robles in patient's reach.
[2024-10-04 01:18] VITALS: BP 132/85; PULSE 85; RESP 16; TEMP 36.7; O2SAT 97
== END 2024-10-04 01:19 | disposition home or self-care (01) ==
PROVIDERS: Emergency Provider Emergency Medicine
DX: R07.89 Other chest pain (principal); I51.89 Other ill-defined heart diseases; R06.02 Shortness of breath; Z79.899 Other long term (current) drug therapy
CPT/HCPCS: 36415; 71046; 80053; 83880; 84484; 85025; 93005; 99283; 99285

== ENCOUNTER → 2024-10-03 22:55 | Outpatient (BNV) | payer MEDICAID, SELFPAY | PROVIDERS: Emergency Provider Emergency Medicine; Visit Provider Internal Medicine Cardiovascular Disease | DX: R94.31 Abnormal electrocardiogram [ECG] [EKG] (principal); R07.89 Other chest pain | CPT/HCPCS: 93010 ==

== ENCOUNTER → 2024-10-04 00:03 | Outpatient (BNV) | payer MEDICAID, SELFPAY | PROVIDERS: Emergency Provider Emergency Medicine; Visit Provider Radiology Diagnostic Radiology | DX: R07.89 Other chest pain (principal) | CPT/HCPCS: 71046 ==